=== PATIENT | female | born 1950 | race Caucasian/White ===

== ENCOUNTER 2016-09-24 10:27 | Inpatient (IN) ==
--- NOTE | 2016-09-24 10:35 | Emergency Department Note ---
Disposition Clinical Impression: DM type 2 (diabetes mellitus, type 2), Pneumonia, Pleural effusion, Hypoxemia, Obesity, Anemia, Uncontrolled diabetes mellitus, Sepsis, History of treatment for malignancy Disposition: Admitted As Inpatient Referrals: Mini Engle CNP [Primary Care Provider] - Forms: ED Satisfaction Letter General Adult HPI - General Chief complaint: ED Chest Pain Stated complaint: chest pain, maximo Time Seen by Provider: 09/24/16 10:30 - History of Present Illness HPI Narrative: 66-year-old female reports in the emergency department complaining of chest pain and shortness of breath. She has recently been diagnosed with a pneumonia took her last antibiotics on Monday. The patient was in the hospital until last Monday. The patient has no home oxygen requirement. She denies any coughing of blood or leg swelling or pain. The patient denies any vomiting or diarrhea but describes some abdominal pain when coughing. There is no history of new back pain and no headache neck stiffness rash or fever. No trouble moving the arms or legs independently no falls. There is no history of dysarthria or confusion. The patient is not anticoagulated currently. The patient is diabetic. Patient has a history of renal malignancy. She had surgery last year. No history of PE or DVT previously. She comes in from home. Onset (ago): day(s) - Related Data Home Medications Medication Instructions Recorded Confirmed RX: Atorvastatin Calcium [Lipitor] 40 mg PO 05/30/16 RX: Esomeprazole Magnesium [Nexium] 40 mg PO 05/30/16 RX: Insulin Glargine,Hum.rec.anlog 100 unit SQ 05/30/16 [Lantus Solostar] RX: Insulin LISPRO [Humalog 100 unit SQ 05/30/16 Kwikpen U-100] RX: Sertraline HCl [Zoloft] 100 mg PO 05/30/16 Previous Rx's Medication Instructions Recorded RX: Meclizine [Antivert] 12.5 mg PO TID PRN #20 tablet 05/30/16 RX: Ascorbic Acid [Vitamin C] 500 mg PO DAILY #30 tablet 09/18/16 RX: Digoxin [Lanoxin] 0.25 mg PO DAILY #30 tablet 09/18/16 RX: Ferrous Sulfate 325 mg PO DAILY #30 tablet 09/18/16 RX: Levofloxacin [Levaquin] 500 mg PO DAILY #3 tablet 09/18/16 RX: Lisinopril [Zestril] 10 mg PO DAILY #0 09/18/16 RX: Metoprolol XL (24 HR) Succ 25 mg PO DAILY #30 tab.er.24h 09/18/16 [Toprol Xl] RX: Rivaroxaban [Xarelto] 20 mg PO 1700 #30 tablet 09/18/16 RX: Verapamil ER (24 HR) [Calan SR] 180 mg PO DAILY #30 tablet.er 09/18/16 Allergies Allergy/AdvReac Type Severity Reaction Status Date / Time Penicillins Allergy Rash Verified 05/30/16 19:13 tape Allergy Rash Uncoded 09/24/16 11:28 All systems ED: reviewed and negative except as stated. Past Medical History - Past Medical History Medical history: Reports: diabetes Psychiatric history: Reports: no psych history - Social History Smoking Status: Never smoker Smokeless Tobacco Status: No Alcohol use: Reports: none Drug use: Reports: none Physical Exam - General Limitations: no limitations General appearance: alert, in no apparent distress - Head Head exam: atraumatic, normocephalic, normal inspection - Eye Eye exam: Present: normal appearance, PERRL, EOMI. Absent: scleral icterus, conjunctival injection - ENT ENT exam: normal exam, normal oropharynx, mucous membranes moist, TM's normal bilaterally, normal external ear exam - Neck Neck exam: Present: normal inspection, full ROM, trachea midline - Chest Chest inspection: Present: symmetric chest wall rise. Absent: tenderness - Respiratory Respiratory exam: Present: prolonged expiratory phase. Absent: respiratory distress, stridor, accessory muscle use - Cardiovascular Cardiovascular exam: Present: regular rate, normal rhythm, normal heart sounds - Abdominal Exam Abdominal exam: Present: soft, Non-Tender, normal bowel sounds. Absent: tenderness, distention, guarding, rebound, rigidity - Extremities Exam Extremities exam: Present: normal inspection, full ROM, normal capillary refill. Absent: tenderness, pedal edema, joint swelling, calf tenderness - Expanded Lower Extremity Exam Lower leg exam: Absent: Homans' sign Neurovascular/Tendon exam: Absent: motor deficit, sensory deficit, tendon deficit, extremity cold to touch - Back Exam Back exam: Present: normal inspection, full ROM. Absent: tenderness, CVA tenderness (R), CVA tenderness (L), vertebral tenderness - Neurological Exam Neurological exam: Present: alert, oriented X3, CN II-XII intact. Absent: motor sensory deficit - Psychiatric Psychiatric exam: Present: normal affect, normal mood - Skin Skin exam: Present: warm, dry, intact, normal color. Absent: rash, cyanosis, diaphoresis, erythema, pallor, mottled Course Vital Signs Temperature 98.8 F 09/24/16 10:33 Pulse Rate 62 09/24/16 10:33 Respiratory Rate 22 09/24/16 10:33 Blood Pressure 143/71 09/24/16 10:33 O2 Sat by Pulse Oximetry 92 L 09/24/16 10:33 Temperature 98.8 F 09/24/16 10:33 Pulse Rate 59 09/24/16 13:00 Respiratory Rate 20 09/24/16 13:00 Blood Pressure 121/48 09/24/16 13:00 O2 Sat by Pulse Oximetry 91 L 09/24/16 13:00 Oxygen Delivery Oxygen Delivery Nasal Cannula Medical Decision Making - MDM Narrative Medical decision making narrative: Patient appears to have been treated outpatient, she has been persistently hypoxemic in the ED with saturations at about 90% on 3 L. She does not usually require oxygen. She was given a dose of antibiotics IV fluids as well as Solu- Medrol and breathing medication. Her CTA does not reveal a pulmonary embolus, she does have a history of kidney malignancy, a pleural effusion appears to be increasing. She appears to have failed outpatient therapy. Based on the patient's persistent hypoxemia, apparent worsening pleural effusion, clinical dyspnea, and tachypnea, I think it would be best to admit the patient to the hospital for further evaluation. Thoracentesis for pleural fluid evaluation could be considered. The patient was initially tachycardic and tachypneic and has a source for infection, her lactic acid is negative. IV fluids were given. Sepsis criteria are met. The patient is currently stable. I have discussed the case with the hospitalist on-call. - Lab Data Lab results reviewed: Yes I reviewed the patient's lab results. Result diagrams: 09/24/16 10:40 09/24/16 10:40 Lab Results 09/24/16 09/24/16 09/24/16 Range/Units 10:40 10:40 10:40 WBC (4.3-11.1) K/mcL RBC (3.82-4.97) M/mcL Hgb (11.5-15.4) g/dL Hct (35.3-44.9) % MCV (83.0-100.0) fL MCH (28.0-33.3) pg MCHC (31.6-35.5) g/dL RDW (11.5-14.5) % Plt Count (140-400) K/mcL MPV (9.4-12.4) fL Immature Gran % (0-4) % Seg Neutrophils % % Lymphocytes % % Monocytes % % Eosinophils % % Basophils % % Neutrophils # (1.6-8.9) K/mcL Lymphocytes # (0.6-4.6) K/mcL Monocytes # (0.0-1.3) K/mcL Eosinophils # (0.0-0.6) K/mcL Basophils # (0.0-0.2) K/mcL PT 15.5 H (9.4-12.1) Seconds INR 1.4 APTT 48.2 H (26.0-36.0) Seconds Sodium 138 (136-145) mEq/L Potassium 4.4 (3.5-4.5) mEq/L Chloride 101 (98-109) mEq/L Carbon Dioxide 26 (19-29) mEq/L BUN 23 H (7-20) mg/dL Creatinine 0.84 (0.57-1.11) mg/dL Est GFR ( Amer) > 60 (> 60) Est GFR (Non-Af Amer) > 60 (> 60) BUN/Creatinine Ratio 27 H (6-26) Glucose 420 H (70-99) mg/dL Calculated Osmolality 308 H (280-300) Lactic Acid (0.5-2.2) mmol/L Calcium 10.5 (8.6-10.8) mg/dL Total Bilirubin 0.4 (0.2-1.2) mg/dL Direct Bilirubin 0.2 (0.0-0.5) mg/dL Indirect Bilirubin 0.2 (0.0-1.2) mg/dL AST 15 (5-34) Units/L ALT 29 (0-55) Units/L Alkaline Phosphatase 247 H (38-126) Units/L Troponin I (0-0.03) ng/mL C-Reactive Protein 15 H (Less than 5) mg/L B-Natriuretic Peptide 132 H (0-100) pg/mL Serum Total Protein 6.5 (6.0-8.3) g/dL Albumin 3.0 L (3.5-5.0) g/dL Globulin 3.5 (2.4-3.5) g/dL Albumin/Globulin Ratio 0.9 L (1.1-2.2) Lipase 30 (8-78) Units/L TSH 3.217 (0.350-4.840) mcIU/mL Digoxin 1.5 (0.8-2.0) ng/mL 09/24/16 09/24/16 09/24/16 Range/Units 10:40 10:40 10:57 WBC 8.1 (4.3-11.1) K/mcL RBC 4.05 (3.82-4.97) M/mcL Hgb 10.9 L (11.5-15.4) g/dL Hct 33.3 L (35.3-44.9) % MCV 82.2 L (83.0-100.0) fL MCH 26.9 L (28.0-33.3) pg MCHC 32.7 (31.6-35.5) g/dL RDW 13.2 (11.5-14.5) % Plt Count 209 (140-400) K/mcL MPV 11.2 (9.4-12.4) fL Immature Gran % 1.4 (0-4) % Seg Neutrophils % 79.1 % Lymphocytes % 12.1 % Monocytes % 5.7 % Eosinophils % 1.1 % Basophils % 0.6 % Neutrophils # 6.4 (1.6-8.9) K/mcL Lymphocytes # 1.0 (0.6-4.6) K/mcL Monocytes # 0.5 (0.0-1.3) K/mcL Eosinophils # 0.1 (0.0-0.6) K/mcL Basophils # 0.1 (0.0-0.2) K/mcL PT (9.4-12.1) Seconds INR APTT (26.0-36.0) Seconds Sodium (136-145) mEq/L Potassium (3.5-4.5) mEq/L Chloride (98-109) mEq/L Carbon Dioxide (19-29) mEq/L BUN (7-20) mg/dL Creatinine (0.57-1.11) mg/dL Est GFR ( Amer) (> 60) Est GFR (Non-Af Amer) (> 60) BUN/Creatinine Ratio (6-26) Glucose (70-99) mg/dL Calculated Osmolality (280-300) Lactic Acid 1.5 (0.5-2.2) mmol/L Calcium (8.6-10.8) mg/dL Total Bilirubin (0.2-1.2) mg/dL Direct Bilirubin (0.0-0.5) mg/dL Indirect Bilirubin (0.0-1.2) mg/dL AST (5-34) Units/L ALT (0-55) Units/L Alkaline Phosphatase (38-126) Units/L Troponin I 0.00 (0-0.03) ng/mL C-Reactive Protein (Less than 5) mg/L B-Natriuretic Peptide (0-100) pg/mL Serum Total Protein (6.0-8.3) g/dL Albumin (3.5-5.0) g/dL Globulin (2.4-3.5) g/dL Albumin/Globulin Ratio (1.1-2.2) Lipase (8-78) Units/L TSH (0.350-4.840) mcIU/mL Digoxin (0.8-2.0) ng/mL - Radiology Data Radiology results reviewed: Yes I reviewed the patient's radiology results.
[2016-09-24 10:48] LABS: Basophils # 0.1 K/mcL (0.0-0.2); Basophils % 0.6 %; Eosinophils # 0.1 K/mcL (0.0-0.6); Eosinophils % 1.1 %; Hematocrit 33.3 % (35.3-44.9); Hemoglobin 10.9 g/dL (11.5-15.4); Immature Granulocytes % 1.4 % (0-4); Lymphocytes % 12.1 %; Mean Corpuscular HGB Conc 32.7 g/dL (31.6-35.5); Mean Corpuscular Hemoglobin 26.9 pg (28.0-33.3); Mean Corpuscular Volume 82.2 fL (83.0-100.0); Mean Platelet Volume 11.2 fL (9.4-12.4); Monocytes # 0.5 K/mcL (0.0-1.3); Monocytes % 5.7 %; Neutrophils # 6.4 K/mcL (1.6-8.9); Platelet Count 209 K/mcL (140-400); Red Blood Count 4.05 M/mcL (3.82-4.97); Red Cell Distribution Width 13.2 % (11.5-14.5); Segmented Neutrophils % 79.1 %
[2016-09-24 10:54] LABS: INR 1.4; Prothrombin Time 15.5 Seconds (9.4-12.1)
[2016-09-24 10:56] LABS: Activated Partial Thrombo Time 48.2 Seconds (26.0-36.0)
[2016-09-24 11:06] LABS: Alanine Aminotransferase 29 Units/L (0-55); Albumin/Globulin Ratio 0.9 (1.1-2.2); Alkaline Phosphatase 247 Units/L (38-126); Aspartate Amino Transferase 15 Units/L (5-34); BUN/Creatinine Ratio 27 (6-26); Bilirubin,Direct 0.2 mg/dL (0.0-0.5); Bilirubin,Indirect 0.2 mg/dL (0.0-1.2); Bilirubin,Total 0.4 mg/dL (0.2-1.2); Blood Urea Nitrogen 23 mg/dL (7-20); Calcium 10.5 mg/dL (8.6-10.8); Carbon Dioxide 26 mEq/L (19-29); Chloride 101 mEq/L (98-109); Globulin 3.5 g/dL (2.4-3.5); Glucose 420 mg/dL (70-99); Lipase 30 Units/L (8-78); Osmolality,Calculated 308 (280-300); Potassium 4.4 mEq/L (3.5-4.5); Sodium 138 mEq/L (136-145); Total Protein 6.5 g/dL (6.0-8.3); eGFR For African Americans > 60 (> 60); eGFR For Non-African Americans > 60 (> 60)
[2016-09-24 11:26] LABS: Digoxin 1.5 ng/mL (0.8-2.0); Thyroid Stimulating Hormone 3.217 mcIU/mL (0.350-4.840)
[2016-09-24] MEDS ORDERED: Ipratropium/Albuterol Neb 3 ML IH ONE (11:54)
[2016-09-24] MEDS ORDERED: methylPREDNISolone 125 MG/2 ML VIAL IVP ONE (11:54)
[2016-09-24] MEDS ORDERED: 0.9 % Sodium Chloride 1,000 ML IVC ONE ×2 (11:55→13:33)
[2016-09-24] MEDS ORDERED: Levofloxacin 750 MG/150 ML 750 MG/150 ML BAG IVPB ONE (11:56)
[2016-09-24 13:01] LABS: C-Reactive Protein 15 mg/L (Less than 5)
[2016-09-24] MEDS ORDERED: Naloxone 0.4 MG/ML INJ IVP PRN (14:42)
[2016-09-24] MEDS ORDERED: Ondansetron ODT 4 MG TAB.RAPDIS SL PRN (14:42)
[2016-09-24] MEDS ORDERED: Vancomycin 1,750 MG in D5% in Water 250 ML IVPB SCH (15:00)
--- NOTE | 2016-09-24 15:17 | Internal Med History&Physical ---
<Lucie Maurice M - Last Filed: 09/24/16 23:20> Date of Encounter: 09/24/16 Time of Encounter: 15:12 Assessment and Plan (1) Pneumonia Current visit: Yes Status: Acute Patient was admitted to [facility] last week and treated for right lower lobe pneumonia discharged on 500 mg of by mouth Levaquin which she completed on Monday. Symptoms have worsened since her discharge last Monday, with increasing shortness of breath, fatigue, malaise, productive cough. She is now requiring 3 L of nasal cannula to maintain oxygen saturation greater than 90%. She was to Neck and dyspneic on assessment in the ED. Chest x-ray showed improvement in right basilar opacity. CTA was negative for PE however showed increasing right pleural effusion and persistent right lower lobe opacification. Consistent with unresolved pneumonia. Lactic acid was 1.5. Blood cultures were drawn She was given IV fluid boluses She was initiated on IV piggyback Levaquin We will add broad-spectrum Vancomycin and aztreonam IV fluids 0.9 normal saline at 100 mL per hour DuoNeb treatments 4 times a day Titrate oxygen to maintain oxygen saturation greater than 92% Pulmonology was consultation for increasing right pleural effusion, I spoke with Dr. Heaton they will see the patient tomorrow Qualifiers: Pneumonia type: due to unspecified organism Laterality: right Lung location: lower lobe of lung Qualified Code(s): J18.1 - Lobar pneumonia, unspecified organism (2) DM type 2 (diabetes mellitus, type 2) Current visit: Yes Status: Chronic Hgb A1c of 13.3 on 09/16/16, indicating she is not well controlled. diabetic diet check blood sugars ACHS Continue home basal dose of insulin 100u HS levemir Continue home Nutritional dose of lispro 12u TID WM low dose sliding scale correction dose ACHS hypoglycemic protocol. Qualifiers: Diabetes mellitus complication status: with neurologic complications Diabetes mellitus complication detail: with polyneuropathy Diabetes mellitus long term care phlebotomist insulin use: with long term care phlebotomist use Qualified Code(s): E11.42 - Type 2 diabetes mellitus with diabetic polyneuropathy; Z79.4 - longterm (current) use of insulin (3) Atrial fibrillation Current visit: No Status: Acute During recent hospitalization at [facility] patient was newly diagnosed with paroxysmal atrial fibrillation. She was started on Xarelto for anticoagulation , and was started on digoxin, metoprolol and verapamil for rate control. She has a sinus rhythm now, and her heart rate is low 50s-60s. She was supposed to get an echocardiogram in follow up. Will get digoxin level. continuous quality assurance monitor final. echocardiogram Continue home dose of digoxin, metoprolol, verapamil. After speaking with Pulmonology, will hold Xarelto for possible procedure Qualifiers: Atrial fibrillation type: paroxysmal Qualified Code(s): I48.0 - Paroxysmal atrial fibrillation (4) Chest pain Current visit: Yes Status: Acute Patient reports chest pain, worse with coughing and activity. CXR showed improvement in right basilar opacity. CTA was negative for PE , but showed increasing right pleural effusion and persistent right lower lobe opacification. Initial troponin negative at 0.0. EKG showed sinus rhythm without ST changes. continuous quality assurance monitor final serial troponins for trend. Qualifiers: Chest pain type: other chest pain Qualified Code(s): R07.89 - Other chest pain; R07.8 - Other chest pain (5) Acute respiratory failure Current visit: Yes Status: Acute Patient does not use oxygen at home. She is reporting increased shortness of breath, and productive cough over the last week. In the ED, she was requiring 3L NC in order to maintain oxygen saturation above 90%. We will treat her pneumonia with broad-spectrum antibiotics DuoNeb treatments 4 times a day titrate oxygen to maintain saturation greater than 92% Pulmonology consultation for increasing right pleural effusion seen on CTA, I spoke with Dr. Heaton he will see patient tomorrow Qualifiers: Respiratory failure complication: hypoxia Qualified Code(s): J96.01 - Acute respiratory failure with hypoxia (6) Pleural effusion Current visit: Yes Status: Acute Patient with increased oxygen requirements, shortness of breath. CTA shows increasing right pleural effusion and persistent right lower lobe opacification. Concern for infected pleural effusion. Pulmonology consultation , I spoke with Dr. Heaton, they will see patient tomorrow. Will hold Xarelto for possible thoracentesis. 20mg IVP lasix daily. (7) DVT prophylaxis Current visit: Yes Status: Acute Ambulate with assistance as tolerated anti-embolic stockings Continue home dose of xarelto Internal Medicine - H&P: HPI Chief complaint: shortness of breath Admitted From: Emergency Dept Plans for Post Hospital Care: Home History of present illness: Ms. Dow is a 66 year old female diabetes, hyperlipidemia, GERD, asthma, recent diagnosis of atrial fibrillation, and recent admission for pneumonia at [facility] presents with increasing as of breath, chest pain, and productive cough. She was admitted last week at [facility] and diagnosed with pneumonia and new onset A. fib. She was treated with Levaquin and discharged on Monday on 500 mg by mouth Levaquin daily and completed the course on Monday. She reports since her discharge, she reports she has felt fatigue, malaise, and felt like her shortness of breath was getting worse. Her cough is productive of thick clear sputum and she also endorses chest pain worse with her cough she has lack of appetite, and some nausea. She denies any palpitations, headaches, fever, chills, body aches she denies any vomiting, abdominal pain, or diarrhea. Dilation in the ED was significant for patient needing 3 L nasal cannula to maintain oxygen saturation 90%, she does not use oxygen at home chest x-ray showed improvement in right basilar opacity. However CTA was negative for PE showed increasing right pleural effusion and persistent right lower lobe opacification upon and was negative at 0.0 white blood cell count was normal at 8.1. CRP was elevated at 15, BNP was mildly elevated at 132. Hyperglycemic with glucose of 420. Exam, patient is alert and oriented in no acute distress. Regular rate and rhythm, lungs have fine crackles in the right base. Past Med Surg Social Fam HX - Past Medical History Medical history: asthma, atrial fibrillation, cancer (kidney cancer s/p kidney resection 2015), diabetes, GERD, hyperlipidemia, hypertension Psychiatric history: no psych history - Past Surgical History Surgical History: appendectomy, cancer surgery (Kidney resection), cholecystectomy, hysterectomy, knee replacement - Social History Smoking Status: Former smoker (Heavy former smoker: 4-5PPD x 30+ years) Smokeless Tobacco Status: No Alcohol use: none Drug use: none - Family History Mother Adopted: No Family Member Ethnicity: Non- Living Status: Age at : 55 Hx Family Cardiac Disorders: No Hx Family Respiratory Disorders: Yes (emphysema) Hx Family Cancer: No Hx Family GI Disorders: No Hx Family Endocrine Disorder: No Hx Family Neuromuscular Disorders: No Hx Family Neurologic Disorders: Yes (depression) Hx Family HEENT Disorders: No Hx Family Autoimmune Disorders: No Internal Medicine - H&P: Meds Atorvastatin Calcium [Lipitor] 40 mg PO DAILY 05/30/16 [History] Esomeprazole Magnesium [Nexium] 40 mg PO DAILY 05/30/16 [History] Insulin Glargine,Hum.rec.anlog [Lantus Solostar] 100 unit SQ HS 05/30/16 [ History] Insulin LISPRO [Humalog Kwikpen U-100] 12 unit SQ TID 05/30/16 [History] Meclizine [Antivert] 12.5 mg PO TID PRN #20 tablet 05/30/16 [Rx] Sertraline HCl [Zoloft] 100 mg PO DAILY 05/30/16 [History] Ascorbic Acid [Vitamin C] 500 mg PO DAILY #30 tablet 09/18/16 [Rx] Digoxin [Lanoxin] 0.25 mg PO DAILY #30 tablet 09/18/16 [Rx] Ferrous Sulfate 325 mg PO DAILY #30 tablet 09/18/16 [Rx] Levofloxacin [Levaquin] 500 mg PO DAILY #3 tablet 09/18/16 [Rx] Lisinopril [Zestril] 10 mg PO DAILY #0 09/18/16 [Rx] Metoprolol XL (24 HR) Succ [Toprol Xl] 25 mg PO DAILY #30 tab.er.24h 09/18/16 [ Rx] Verapamil ER (24 HR) [Calan SR] 180 mg PO DAILY #30 tablet.er 09/18/16 [Rx] Aspirin [Lo-Dose Aspirin EC] 81 mg PO DAILY 09/24/16 [History] Rivaroxaban [Xarelto] 20 mg PO QPM 09/24/16 [History] Allergies Penicillins Allergy (Verified 09/24/16 15:42) Hives adhesive tape Adverse Reaction (Verified 09/24/16 15:42) See Comments TAPE CAUSES BRUISING- All Systems PM: A 10-system review of systems was performed and is negative for pertinent findings except as documented above in the HPI. - Constitutional Constitutional: fatigue, malaise, no chills, no fever(s), no night sweats - EENT Eyes: no change in vision, no discharge, no pain, no photophobia Ears: no ear discharge, no ear pain, no tinnitus Nose, mouth and throat: no dysphagia, no nasal discharge, no neck pain, no sore throat - Cardiovascular Cardiovascular ROS IM: chest pain, dyspnea, dyspnea on exertion, no diaphoresis , no lightheadedness, no palpitations, no syncope - Respiratory Respiratory: cough, dyspnea, dyspnea on exertion, excessive phlegm production, pain with cough, no hemoptysis, no wheezing - Gastrointestinal Gastrointestinal: no abdominal pain, no diarrhea, no hematemesis, no hematochezia, no melena, no nausea, no vomiting - Genitourinary Genitourinary: no change in urinary stream, no dysuria, no flank pain, no hematuria - Musculoskeletal Musculoskeletal ROS IM: no numbness, no tingling - Integumentary Integumentary IM: no rash, no unusual bruising - Neurological Neurological ROS: no confusion, no convulsions, no focal weakness, no numbness, no tingling, no tremor(s) - Hematologic/Lymphatic Hematologic/Lymphatic: no easy bruising - Constitutional Vitals: Temp Pulse Resp BP Pulse Ox 98.8 F 57 20 137/70 90 L 09/24/16 10:33 09/24/16 13:30 09/24/16 13:30 09/24/16 13:30 09/24/16 13:30 General appearance: Present: A&O X 3, morbidly obese, no acute distress - Head Head exam: Present: atraumatic, normocephalic - Eye Eye exam: Present: PERRL, conjuntiva pink, sclera anicteric Pupils: Present: PERRL - Neck Neck exam general surgery: Present: supple, trachea midline. Absent: lymphadenopathy - Respiratory Respiratory exam: Present: rales (right base). Absent: accessory muscle use, rhonchi, wheezes - Cardiovascular Cardiovascular exam: Present: RRR, +S1, +S2. Absent: diastolic murmur, gallop, rubs, systolic murmur - GI/Abdominal GI/Abdominal exam: Present: normal bowel sounds, soft, no peritoneal signs. Absent: distended, tenderness - Extremities Exam Extremities exam: Present: warm, radial pulses palpable and symetrical. Absent : calf tenderness, cyanotic, pedal edema - Neurological Exam Neurological exam: Present: CN II-XII intact, oriented X3, no focal deficits. Absent: facial droop, speech deficit - Skin Skin exam: Present: dry, intact Internal Med - H&P Results - Labs CBC & Chem 7: 09/24/16 10:40 09/24/16 10:40 Labs: Short CBC 09/24/16 Range/Units 10:40 WBC 8.1 (4.3-11.1) K/mcL Hgb 10.9 L (11.5-15.4) g/dL Hct 33.3 L (35.3-44.9) % Plt Count 209 (140-400) K/mcL Neutrophils # 6.4 (1.6-8.9) K/mcL BMP 09/24/16 10:40 Sodium 138 Potassium 4.4 Chloride 101 Carbon Dioxide 26 BUN 23 H Creatinine 0.84 Glucose 420 H Calcium 10.5 Cardiac Enzymes 09/24/16 Range/Units 10:40 Troponin I 0.00 (0-0.03) ng/mL Liver Function 09/24/16 Range/Units 10:40 Total Bilirubin 0.4 (0.2-1.2) mg/dL Direct Bilirubin 0.2 (0.0-0.5) mg/dL AST 15 (5-34) Units/L ALT 29 (0-55) Units/L Alkaline Phosphatase 247 H (38-126) Units/L Albumin 3.0 L (3.5-5.0) g/dL - Impressions ITS Impressions Chest X-Ray 09/24/16 10:37 IMPRESSION: Interval improvement in right basilar opacity since the previous exam. D/ / Bette Zapien MD / Bette Zapien MD Interpreting Provider: Bette Zapien MD Chest CTA 09/24/16 12:05 IMPRESSION: 1. No evidence of pulmonary embolic disease. 2. Persistent right lower lobe opacification consistent with a pneumonia. Interval increase in right pleural effusion. No new areas of involvement. 3. Stable nodule in the lower cervical region on the left, possibly clifton. D/ / 09/24/2016 13:05:03 Delroy Snell MD / earnold Interpreting Provider: Delroy Snell MD <Gregory Daniels - Last Filed: 09/25/16 07:39> Date of Encounter: 09/25/16 Internal Medicine - H&P: HPI History of present illness: Ms. Dow is a 66 year old female All Systems PM: A 10-system review of systems was performed and is negative for pertinent findings except as documented above in the HPI. - Constitutional Vitals: Temp Pulse Resp BP Pulse Ox 98.0 F 66 16 134/66 94 L 09/25/16 06:16 09/25/16 06:16 09/25/16 06:16 09/25/16 06:16 09/25/16 06:16 Internal Med - H&P Results - Labs CBC & Chem 7: 09/25/16 04:51 09/25/16 04:51 Labs: Short CBC 09/25/16 Range/Units 04:51 WBC 8.3 (4.3-11.1) K/mcL Hgb 11.6 (11.5-15.4) g/dL Hct 36.9 (35.3-44.9) % Plt Count 320 D (140-400) K/mcL Neutrophils # 7.3 (1.6-8.9) K/mcL BMP 09/25/16 04:51 Sodium 137 Potassium 4.2 Chloride 100 Carbon Dioxide 23 BUN 24 H Creatinine 1.21 H Glucose 468 H Calcium 9.5 Cardiac Enzymes 09/24/16 09/24/16 Range/Units 16:33 22:17 Troponin I 0.00 0.00 (0-0.03) ng/mL - Attending Attestation I examined this patient and my medical decision-making was reviewed with the Advanced Practice Provider. I agree with the documented findings, disposition and treatment plan as described except to the extent set forth below. Will treatment the patient with antibiotics for pneumonia, hold anticoagulation in anticipation of possible diagnostic thoracentesis which would be indicated to diagnose parapneumonic effusion or empyema. Continue with oxygen by nasal cannula for acute hypoxic respiratory failure secondary to pneumonia and pleural effusion. For DVT prophylaxis we will use SCDs while holding the patient's Xarelto.
[2016-09-24] MEDS: Ipratropium/Albuterol Neb 3 ML IH SCH ×2 (15:38→22:19)
[2016-09-24] MEDS ORDERED: Dextrose Gel 15 GM PO PRN ×2 (15:38)
[2016-09-24] MEDS ORDERED: *HR* Dextrose 50 % in Water (Syg) 50 ML SYRINGE IVP PRN (15:38)
[2016-09-24] MEDS ORDERED: D5% in Water 1,000 ML IV PRN (15:38)
[2016-09-24] MEDS ORDERED: Vancomycin 1,750 MG in D5% in Water 500 ML IVPB ONE (16:00)
[2016-09-24] MEDS: Aztreonam 1,000 MG in D5% in Water (Mini-Bag+) 100 ML IVPB SCH (16:55)
[2016-09-24] MEDS: 0.9 % Sodium Chloride 1,000 ML IVC SCH (16:58)
[2016-09-24] MEDS: Insulin LISPRO 300 UNITS/3 ML VIAL SQ SCH ×3 (17:01→22:28)
[2016-09-24] MEDS ORDERED: *HR* Rivaroxaban 10 MG TABLET PO SCH (18:00)
[2016-09-24] MEDS: Insulin DETEMIR 100 UNIT/ML X5UNITS SQ SCH (20:43)
[2016-09-24] MEDS: Furosemide 20 MG/2 ML VIAL IVP SCH (20:44)
[2016-09-25] MEDS: Aztreonam 1,000 MG in D5% in Water (Mini-Bag+) 100 ML IVPB SCH ×4 (00:02→23:49)
[2016-09-25] MEDS: 0.9 % Sodium Chloride 1,000 ML IVC SCH (02:41)
[2016-09-25] MEDS: Insulin LISPRO 300 UNITS/3 ML VIAL SQ SCH ×8 (03:27→22:12)
[2016-09-25] MEDS: Ipratropium/Albuterol Neb 3 ML IH SCH ×4 (04:14→23:08)
[2016-09-25 05:19] LABS: Basophils % 0.2 %; Hematocrit 36.9 % (35.3-44.9); Hemoglobin 11.6 g/dL (11.5-15.4); Immature Granulocytes % 3.9 % (0-4); Lymphocytes # 0.5 K/mcL (0.6-4.6); Lymphocytes % 5.8 %; Mean Corpuscular HGB Conc 31.4 g/dL (31.6-35.5); Mean Corpuscular Hemoglobin 26.2 pg (28.0-33.3); Mean Corpuscular Volume 83.3 fL (83.0-100.0); Mean Platelet Volume 10.4 fL (9.4-12.4); Monocytes # 0.1 K/mcL (0.0-1.3); Monocytes % 1.6 %; Neutrophils # 7.3 K/mcL (1.6-8.9); Platelet Count 320 K/mcL (140-400); Red Blood Count 4.43 M/mcL (3.82-4.97); Segmented Neutrophils % 88.5 %
[2016-09-25 05:44] LABS: Calcium 9.5 mg/dL (8.6-10.8); Potassium 4.2 mEq/L (3.5-4.5)
[2016-09-25] MEDS: Aspirin Enteric Coated 81 MG Tablet PO SCH (08:15)
[2016-09-25] MEDS: Verapamil ER (24 HR) 180 MG TABLET.ER PO SCH (08:15)
[2016-09-25] MEDS: Ascorbic Acid 500 MG TABLET PO SCH (08:15)
[2016-09-25] MEDS: Metoprolol XL (24 HR) Succ 25 MG TAB.ER.24H PO SCH (08:16)
[2016-09-25] MEDS: Furosemide 20 MG/2 ML VIAL IVP SCH (08:17)
[2016-09-25] MEDS: *HR* Digoxin 0.25 MG TABLET PO SCH (08:17)
[2016-09-25] MEDS ORDERED: Vancomycin 1,750 MG in D5% in Water 500 ML IVPB ONE (09:00)
--- NOTE | 2016-09-25 10:33 | Event Note ---
Date of Encounter: 09/25/16 Time of Encounter: 08:00 I noticed a significant rise in creatinine this morning and so I will stop the lisinopril. Avoid nephrotoxins. F/u BMP in am.
--- NOTE | 2016-09-25 13:00 | ECHO - Doppler Report ---
Echocardiogram Name: Katelyn Dow Date of Study: 09/25/2016 Date: 1950 Ht: 61.0 in Medical Record#: [id number] Age: 66 Wt: 246.0 lb Gender: Female BSA: 2.06 Order #: [id number] Location: [facility] Room #: 2NE20 Reading Physician: Bella Bauer DO Sales Service Assistant: Brii Goetz PRINCESS Ordering Physician: Nadeem Feliz MD Primary Physician: Mini Engle CNP Indications: Atrial fibrillation Impressions: LVEF 55%. Normal left ventricular size and systolic function. There is evidence of moderate diastolic dysfunction of the left ventricle. Mild to moderately dilated RV with normal function. No significant valvular dysfunction. No pulmonary hypertension. Left Ventricular Wall Motion: Rest Echo Findings All wall segments showed normal motion. Findings: Study Quality * Technically sub-optimal due to body habitus. ECG Findings * Normal sinus rhythm. Aortic Valve * No aortic regurgitation. * Aortic valve not well visualized. * No aortic stenosis. Mitral Valve * Normal mitral valve structure. * No mitral stenosis. * Mild mitral annular calcification * Trace mitral regurgitation. Tricuspid Valve * Tricuspid valve not well visualized. * Trace tricuspid regurgitation. * Estimated RA pressure is 3 mmHg. * Estimated RVSP is 25 mmHg. * No pulmonary hypertension. Pulmonic Valve * Pulmonic valve is not well visualized. * No pulmonic stenosis. * No pulmonic regurgitation. Pulmonary Artery * Pulmonary artery not well visualized. Right Atrium * Normal right atrial size. Left Ventricle * Moderate left ventricular diastolic dysfunction. * LVEF 55%. * Normal LV chamber size, wall thickness and function. Left Atrium * Mildly dilated left atrium. Interatrial Septum * No evidence of PFO by color Doppler. Right Ventricle * Mild to moderately dilated RV with normal function. IVC * The IVC is not dilated. Pericardium * There is no pericardial effusion present. Aorta * Normally sized aortic root. History Diabetes Hypercholesteremia Family History of CAD Measurements: BP: 134/ 66 2D Normal Values RVIDd: 3.10 cm <2.7 cm IVSd: .90 cm 0.6 - 1.0 cm LVIDd: 4.30 cm 3.7 - 5.6 cm LVPWd: 1.10 cm 0.6 - 1.1 cm LVIDs: 2.90 cm 1.5 - 3.6 cm AO: 2.70 cm < 4.0 cm LA: 4.20 cm 2.0 - 4.0cm %FS: 32.60 cm >25 % LVOT Diam: 2.00 cm LA volume: 71 Mitral Valve Peak E:.81 m/sec Peak A:.85 m/sec E/A Ratio:1 Peak E' Lat Marvin:7.21 cm/s Peak E' Med Marvin:12.7 cm/s E/E' Lat Ratio:11.3 E/E' Med Ratio:6.4 Tricuspid Valve TV Regurg Peak Grad: 22.00mmHg TV Regurg Peak Marvin: 2.36m/sec Updated by Bella Bauer on 09/25/2016 12:55:08 PM electronically signed on 09/25/2016 12:56:08 PM with status of Final Wall Motion [place]: 1=Normal, 2=Hypokinesis, 3=Akinesis, 4=Dyskinesis, 5=Aneurysmal, 6=Hyperkinetic, X=Not Visualized (Blank)=Missing
--- NOTE | 2016-09-25 13:18 | Internal Med Progress Note ---
Date of Encounter: 09/25/16 Time of Encounter: 13:14 - Assessment and plan (1) Pneumonia Current Visit: Yes Status: Acute Assessment and plan: Pneumonia: -Admitted for pneumonia, healthcare associated pneumonia. -Presently on vancomycin and aztreonam. -Noted that she she was treated recently in the hospital. -Denies fever, cough or nausea and vomiting. Plan -We will continue antibiotics for now. -I feel this worsening shortness of breath and generalized fatigue is a result of underlying coronary artery disease. -I will get stress test done. -She also has a previous history of malignancy. I will keep that in mind in terms of evaluation Qualifiers: Pneumonia type: due to unspecified organism Laterality: right Lung location: lower lobe of lung Qualified Code(s): J18.1 - Lobar pneumonia, unspecified organism (2) Obesity Current Visit: Yes Status: Acute Assessment and plan: She may get benefit from bariatric surgery as outpatient Qualifiers: Obesity type: unspecified obesity type Obesity severity: unspecified obesity severity Qualified Code(s): E66.9 - Obesity, unspecified (3) Pleural effusion Current Visit: Yes Status: Acute Assessment and plan: Pleural effusion is likely secondary to underlying coronary artery disease / ischemic heart disease. Echocardiogram: Moderate diastolic dysfunction. (4) DVT prophylaxis Current Visit: Yes Status: Acute Assessment and plan: On Xarelto. Medical decision making: This patient is a [id number] risk of worsening infection in spite of being on appropriate antibiotics - Subjective Interval history: Seen and examined. Chart reviewed. Patient is complaining of worsening shortness of breath for last 5-6 months. She has progressively worsening effort tolerance as well as she feels easily fatigued. - Constitutional Vitals: Temp Pulse Resp BP Pulse Ox 98.0 F 65 16 125/49 95 09/25/16 10:00 09/25/16 10:00 09/25/16 10:00 09/25/16 10:00 09/25/16 10:00 General appearance: Present: A&O X 3, morbidly obese, no acute distress - Head Head exam: Present: atraumatic, normocephalic - Eye Eye exam: Present: PERRL, conjuntiva pink, sclera anicteric Pupils: Present: PERRL - Neck Neck exam general surgery: Present: supple, trachea midline. Absent: lymphadenopathy - Respiratory Respiratory exam: Present: CTAB. Absent: accessory muscle use, rales, rhonchi, wheezes - Cardiovascular Cardiovascular exam: Present: RRR, +S1, +S2. Absent: diastolic murmur, gallop, rubs, systolic murmur - GI/Abdominal GI/Abdominal exam: Present: normal bowel sounds, soft, no peritoneal signs. Absent: distended, tenderness - Extremities Exam Extremities exam: Present: warm, radial pulses palpable and symetrical. Absent : calf tenderness, cyanotic, pedal edema - Neurological Exam Neurological exam: Present: CN II-XII intact, oriented X3, no focal deficits. Absent: pronater drift, facial droop, speech deficit - Skin Skin exam: Present: dry, intact Internal Medicine: Result - Labs CBC & Chem 7: 09/25/16 04:51 09/25/16 04:51 Labs: Short CBC 09/25/16 Range/Units 04:51 WBC 8.3 (4.3-11.1) K/mcL Hgb 11.6 (11.5-15.4) g/dL Hct 36.9 (35.3-44.9) % Plt Count 320 D (140-400) K/mcL Neutrophils # 7.3 (1.6-8.9) K/mcL BMP 09/25/16 04:51 Sodium 137 Potassium 4.2 Chloride 100 Carbon Dioxide 23 BUN 24 H Creatinine 1.21 H Glucose 468 H Calcium 9.5 Cardiac Enzymes 09/24/16 09/24/16 Range/Units 16:33 22:17 Troponin I 0.00 0.00 (0-0.03) ng/mL - ABG Interpretation ABG results: PT/INR, D-dimer PT 15.5 Seconds (9.4-12.1) H 09/24/16 10:40 Consult Discharge Plan - Plan Referrals: Mini Engle, [employer] [Primary Care Provider] -
--- NOTE | 2016-09-25 13:51 | Pulmonology Consult Note ---
Date of Encounter: 09/25/16 Time of Encounter: 13:49 Assessment and Plan (1) Acute respiratory failure Current Visit: Yes Status: Acute Suspect this is more related to cardiogenic pulmonary edema elevated BNP does have underlying pneumonia right side but really a possibly of clinical markers of infection. No leukocytosis fevers no cough etc. and she has been treated already for pneumonia with a broad-spectrum respiratory fluoroquinolone. Recommend echocardiogram gentle diuresis and further evaluation of potential cardiac causes of dyspnea Qualifiers: Respiratory failure complication: hypoxia Qualified Code(s): J96.01 - Acute respiratory failure with hypoxia (2) DVT prophylaxis Current Visit: Yes Status: Acute Recommended holding anticoagulation for 24 hours to see clinical course and if additional invasive testing such as bronchoscopy would be needed although I doubt this will be helpful (3) Pleural effusion Current Visit: Yes Status: Acute Trivial right-sided pleural effusion likely suspect cardiac etiology indication for diagnostic thoracentesis unless patient clinically shows signs of worsening sepsis in which case he could consider CT-guided aspiration. (4) Pneumonia Current Visit: Yes Status: Acute Patient has community-acquired pneumonia which has been treated with respiratory fluoroquinolone likely delay and radiographic resolution but clinically does not appear to be infected at this time if clinically worsens and showing more signs of sepsis could also consider bronchoscopy for an unresolved infiltrate but again clinically there is just not convincing case with this woman is suffering from untreated pneumonia Qualifiers: Pneumonia type: due to unspecified organism Laterality: right Lung location: lower lobe of lung Qualified Code(s): J18.1 - Lobar pneumonia, unspecified organism (5) Atrial fibrillation Current Visit: No Status: Acute Right stable being managed by the primary team Qualifiers: Atrial fibrillation type: paroxysmal Qualified Code(s): I48.0 - Paroxysmal atrial fibrillation History of Present Illness Consult date: 09/25/16 Requesting physician: Gregory Daniels Reason for consult: pneumonia Chief complaint: Shortness of breath History of present illness: This is a 66-year-old woman with a history of asthma (appears mild persistent) varicose smoker but quit in 2000 recent diagnosis of atrial fibrillation and was treated about a week ago for pneumonia. Had some improvement after initiation of antimicrobials however over the last couple of days before presentation to the ED yesterday she noted that she just felt increasing shortness of breath felt weak and tired denies any significant cough fever chills has no some leg swelling. CTA was done on arrival which was negative for filling defect that was notable for unresolved right lower lobe pneumonia with a small right pleural effusion. Pulmonary was consulted to comment on the pleural effusion and if the pleural effusion would need to be tapped. Past Med Surg Social Fam HX - Past Medical History Medical history: asthma, atrial fibrillation, cancer (kidney cancer s/p kidney resection 2014), diabetes, GERD, hyperlipidemia, hypertension Psychiatric history: no psych history - Past Surgical History Surgical History: appendectomy, cancer surgery (Kidney resection), cholecystectomy, hysterectomy, knee replacement - Social History Smoking Status: Former smoker (Heavy former smoker: 4-5PPD x 30+ years) Smokeless Tobacco Status: No Alcohol use: none Drug use: none - Family History Mother Adopted: [place]: [place] Family Member Ethnicity: Non- Living Status: Age at : 55 Hx Family Cardiac Disorders: No Hx Family Respiratory Disorders: Yes (emphysema) Hx Family Cancer: No Hx Family GI Disorders: No Hx Family Endocrine Disorder: No Hx Family Neuromuscular Disorders: No Hx Family Neurologic Disorders: Yes (depression) Hx Family HEENT Disorders: No Hx Family Autoimmune Disorders: No Medications and Allergies Atorvastatin Calcium [Lipitor] 40 mg PO DAILY 05/30/16 [History] Esomeprazole Magnesium [Nexium] 40 mg PO DAILY 05/30/16 [History] Insulin Glargine,Hum.rec.anlog [Lantus Solostar] 100 unit SQ HS 05/30/16 [ History] Insulin LISPRO [Humalog Kwikpen U-100] 12 unit SQ TID 05/30/16 [History] Meclizine [Antivert] 12.5 mg PO TID PRN #20 tablet 05/30/16 [Rx] Sertraline HCl [Zoloft] 100 mg PO DAILY 05/30/16 [History] Ascorbic Acid [Vitamin C] 500 mg PO DAILY #30 tablet 09/18/16 [Rx] Digoxin [Lanoxin] 0.25 mg PO DAILY #30 tablet 09/18/16 [Rx] Ferrous Sulfate 325 mg PO DAILY #30 tablet 09/18/16 [Rx] Levofloxacin [Levaquin] 500 mg PO DAILY #3 tablet 09/18/16 [Rx] Lisinopril [Zestril] 10 mg PO DAILY #0 09/18/16 [Rx] Metoprolol XL (24 HR) Succ [Toprol Xl] 25 mg PO DAILY #30 tab.er.24h 09/18/16 [ Rx] Verapamil ER (24 HR) [Calan SR] 180 mg PO DAILY #30 tablet.er 09/18/16 [Rx] Aspirin [Lo-Dose Aspirin EC] 81 mg PO DAILY 09/24/16 [History] Rivaroxaban [Xarelto] 20 mg PO QPM 09/24/16 [History] Allergies Penicillins Allergy (Verified 09/24/16 15:42) Hives adhesive tape Adverse Reaction (Verified 09/24/16 15:42) See Comments TAPE CAUSES BRUISING- All Systems: A 10-system review of systems was performed and is negative for pertinent findings except as documented above in the HPI. Physical Examination Vital Signs: Vital Signs, Last 4 Hours Temp Pulse Resp BP Pulse Ox 09/25/16 10:00 98.0 F 65 16 125/49 95 General appearance: no acute distress Eyes: nonicteric ENT: oropharynx moist Neck: supple Effort: normal Auscultation: bilateral: diminished breath sounds (No wheeze no rhonchi) Cardiovascular: irregular rhythm Gastrointestinal: normoactive bowel sounds Integumentary: normal Extremities: edema normal mental status, non-focal exam mood appropriate Results - Laboratory Findings CBC and BMP: 09/25/16 04:51 09/25/16 04:51 PT/INR, D-dimer PT 15.5 Seconds (9.4-12.1) H 09/24/16 10:40 Abnormal lab findings: Abnormal lab results MCH 26.2 pg (28.0-33.3) L 09/25/16 04:51 MCHC 31.4 g/dL (31.6-35.5) L 09/25/16 04:51 Lymphocytes # 0.5 K/mcL (0.6-4.6) L 09/25/16 04:51 PT 15.5 Seconds (9.4-12.1) H 09/24/16 10:40 APTT 48.2 Seconds (26.0-36.0) H 09/24/16 10:40 BUN 24 mg/dL (7-20) H 09/25/16 04:51 Creatinine 1.21 mg/dL (0.57-1.11) H 09/25/16 04:51 Est GFR ( Amer) 54 (> 60) L 09/25/16 04:51 Est GFR (Non-Af Amer) 45 (> 60) L 09/25/16 04:51 Glucose 468 mg/dL (70-99) H 09/25/16 04:51 POC Glucose 540 (58-89) H* 09/24/16 22:43 Calculated Osmolality 309 (280-300) H 09/25/16 04:51 Alkaline Phosphatase 247 Units/L (38-126) H 09/24/16 10:40 C-Reactive Protein 15 mg/L (Less than 5) H 09/24/16 10:40 B-Natriuretic Peptide 132 pg/mL (0-100) H 09/24/16 10:40 Albumin 3.0 g/dL (3.5-5.0) L 09/24/16 10:40 Albumin/Globulin Ratio 0.9 (1.1-2.2) L 09/24/16 10:40 - Diagnostic Findings Chest x-ray: report reviewed, image reviewed CT scan - chest: report reviewed, image reviewed - Clinical Findings Intake & Output: Intake & Output 09/24/16 09/25/16 09/25/16 23:59 07:59 15:59 Intake Total 340 / 340 1640 / 1640 900 / 900 Output Total 0 / 0 500 / 500 Balance 340 / 340 1640 / 1640 400 / 400 Weight 111.7 kg Consult Discharge Plan - Plan Referrals: Mini Engle, [employer] [Primary Care Provider] -
--- NOTE | 2016-09-25 14:04 | Electrocardiograph Report ---
[place] [id number] Test Date: 2016-09-24 Pat Name: Katelyn Dow Department: 103 Room: 2NE20 Gender: F Senior Construction Manager: : 1950 Requested By: Ulyssse Paul Order Number: [id number] Reading MD: Bella Bauer Measurements Intervals [place] Rate: 61 P: 56 TN: 184 QRS: 1 QRSD: 94 T: 20 QT: 390 QTc: 394 Interpretive Statements SINUS RHYTHM Electronically Signed On 09-25-2016 14:02:32 EST by Bella Bauer
[2016-09-25] MEDS ORDERED: *HR* Rivaroxaban 15 MG TABLET PO SCH (18:00)
[2016-09-25] MEDS: Insulin DETEMIR 100 UNIT/ML X5UNITS SQ SCH (22:13)
[2016-09-26] MEDS: Ipratropium/Albuterol Neb 3 ML IH SCH ×4 (05:22→23:26)
[2016-09-26 05:58] LABS: Basophils # 0.1 K/mcL (0.0-0.2); Basophils % 0.6 %; Eosinophils # 0.1 K/mcL (0.0-0.6); Eosinophils % 0.8 %; Hematocrit 30.5 % (35.3-44.9); Immature Granulocytes % 1.1 % (0-4); Immature Platelets 2.8 % (1.1-6.1); Lymphocytes # 1.4 K/mcL (0.6-4.6); Lymphocytes % 14.8 %; Mean Corpuscular HGB Conc 31.1 g/dL (31.6-35.5); Mean Corpuscular Hemoglobin 26.5 pg (28.0-33.3); Mean Corpuscular Volume 85.2 fL (83.0-100.0); Mean Platelet Volume 12.1 fL (9.4-12.4); Monocytes # 0.6 K/mcL (0.0-1.3); Monocytes % 6.6 %; Neutrophils # 7.3 K/mcL (1.6-8.9); Platelet Count 285 K/mcL (140-400); Red Blood Count 3.58 M/mcL (3.82-4.97); Red Cell Distribution Width 13.3 % (11.5-14.5); Segmented Neutrophils % 76.1 %
[2016-09-26 06:01] LABS: Hemoglobin 9.5 g/dL (11.5-15.4)
[2016-09-26] MEDS ORDERED: Regadenoson 0.4 MG/5 ML SYRINGE IVP ONE (06:11)
[2016-09-26 06:13] LABS: Albumin 2.7 g/dL (3.5-5.0); Albumin/Globulin Ratio 0.9 (1.1-2.2); Bilirubin,Total 0.2 mg/dL (0.2-1.2); Calcium 8.4 mg/dL (8.6-10.8); Potassium 4.6 mEq/L (3.5-4.5); Total Protein 5.7 g/dL (6.0-8.3)
[2016-09-26] MEDS ORDERED: Insulin LISPRO 300 UNITS/3 ML VIAL SQ SCH (07:54)
[2016-09-26] MEDS: Metoprolol XL (24 HR) Succ 25 MG TAB.ER.24H PO SCH (09:59)
[2016-09-26] MEDS: Aspirin Enteric Coated 81 MG Tablet PO SCH (09:59)
[2016-09-26] MEDS: Verapamil ER (24 HR) 180 MG TABLET.ER PO SCH (09:59)
[2016-09-26] MEDS: *HR* Digoxin 0.25 MG TABLET PO SCH (10:00)
[2016-09-26] MEDS: Insulin LISPRO 300 UNITS/3 ML VIAL SQ SCH ×5 (10:00→17:32)
[2016-09-26] MEDS: Ascorbic Acid 500 MG TABLET PO SCH (10:00)
[2016-09-26] MEDS: Aztreonam 1,000 MG in D5% in Water (Mini-Bag+) 100 ML IVPB SCH ×2 (10:02→17:31)
[2016-09-26] MEDS ORDERED: Acetaminophen 325 MG TABLET PO ONE (11:39)
--- NOTE | 2016-09-26 11:53 | Internal Med Progress Note ---
<PelonMarcellus parker - Last Filed: 09/26/16 11:51> Date of Encounter: 09/26/16 Time of Encounter: 11:51 - Assessment and plan (1) Acute respiratory failure Current Visit: Yes Status: Acute Assessment and plan: Likely related to underlying pneumonia however cardiac causes cannot be excluded. Echo revealed moderate diastolic dysfunction. Cardiac Stress test being performed, 2 day test, results tomorrow. Continue oxygen supplementation. Patient will likely require oxygen supplementation for at least a short period of time of discharge. Qualifiers: Respiratory failure complication: hypoxia Qualified Code(s): J96.01 - Acute respiratory failure with hypoxia (2) Pneumonia Current Visit: Yes Status: Acute Assessment and plan: Healthcare associated due to recent hospitalization. Currently on vancomycin and aztreonam. Clinically improving. Continue antibiotics. Qualifiers: Pneumonia type: due to unspecified organism Laterality: right Lung location: lower lobe of lung Qualified Code(s): J18.1 - Lobar pneumonia, unspecified organism (3) SARAN (acute kidney injury) Current Visit: Yes Status: Acute Assessment and plan: Possibly related to dehydration from diuresis. She continues to have good urine output. We will hold Lasix. We will check urine studies. Will continue to monitor. Renally dose medications including digoxin and vancomycin. Will give 500 mL bolus. (4) Pleural effusion Current Visit: Yes Status: Acute Assessment and plan: small right-sided pleural effusion and CT scan. Parapneumonic versus cardiogenic. Continue antibiotic treatment and workup for ischemic heart disease as discussed above. (5) Microcytic anemia Current Visit: No Status: Acute Assessment and plan: With an acute drop in hemoglobin today. No signs of obvious bleeding. Patient denies blood in her stool. Patient deferred rectal exam. Patient is on Xarelto , will hold at this time. Monitor CBC (6) DVT prophylaxis Current Visit: Yes Status: Acute Assessment and plan: Currently on xarelto, will hold for anemia as discussed above. Will initiate EPCDs for now. - Subjective Interval history: Patient seen and examined at bedside. Patient has no complaints, she states she feels better. Her shortness of breath is improving. She denies chest pain at this time. She reports a dry cough. - Constitutional Vitals: Temp Pulse Resp BP Pulse Ox 98.2 F 68 16 116/68 95 09/26/16 11:06 09/26/16 11:06 09/26/16 11:06 09/26/16 11:06 09/26/16 11:06 General appearance: Present: A&O X 3, morbidly obese, no acute distress - Respiratory Respiratory exam: Present: decreased breath sounds. Absent: rales, rhonchi, wheezes - Cardiovascular Cardiovascular exam: Present: RRR. Absent: gallop, rubs, systolic murmur - GI/Abdominal GI/Abdominal exam: Present: normal bowel sounds, soft. Absent: distended, tenderness - Rectal Rectal exam: Present: deferred - Extremities Exam Extremities exam: Present: warm. Absent: calf tenderness, pedal edema - Neurological Exam Neurological exam: Present: alert, CN II-XII intact, oriented X3, no focal deficits Internal Medicine: Result - Labs CBC & Chem 7: 09/26/16 05:40 09/26/16 05:40 Labs: Short CBC 09/26/16 Range/Units 05:40 WBC 9.6 (4.3-11.1) K/mcL Hgb 9.5 L D (11.5-15.4) g/dL Hct 30.5 L (35.3-44.9) % Plt Count 285 (140-400) K/mcL Neutrophils # 7.3 (1.6-8.9) K/mcL BMP 09/26/16 05:40 Sodium 132 L Potassium 4.6 H Chloride 98 Carbon Dioxide 24 BUN 48 H D Creatinine 1.66 H Glucose 330 H Calcium 8.4 L Liver Function 09/26/16 Range/Units 05:40 Total Bilirubin 0.2 (0.2-1.2) mg/dL AST 34 (5-34) Units/L ALT 41 (0-55) Units/L Alkaline Phosphatase 198 H (38-126) Units/L Albumin 2.7 L (3.5-5.0) g/dL - ABG Interpretation ABG results: PT/INR, D-dimer PT 15.5 Seconds (9.4-12.1) H 09/24/16 10:40 - VTE Documentation of Mechanical Device: Graduated compression elastic hosiery Consult Discharge Plan - Plan Referrals: Mini Engle, [employer] [Primary Care Provider] - <Nadeem Feliz P - Last Filed: 09/26/16 17:44> Date of Encounter: 09/26/16 - Assessment and plan (1) Pneumonia Current Visit: Yes Status: Acute Qualifiers: Pneumonia type: due to unspecified organism Laterality: right Lung location: lower lobe of lung Qualified Code(s): J18.1 - Lobar pneumonia, unspecified organism (2) Obesity Current Visit: Yes Status: Acute Qualifiers: Obesity type: unspecified obesity type Obesity severity: unspecified obesity severity Qualified Code(s): E66.9 - Obesity, unspecified (3) Pleural effusion Current Visit: Yes Status: Acute (4) DVT prophylaxis Current Visit: Yes Status: Acute - Constitutional Vitals: Temp Pulse Resp BP Pulse Ox 97.9 F 47 18 100/55 92 L 09/26/16 16:35 09/26/16 16:35 09/26/16 16:35 09/26/16 16:35 09/26/16 16:35 Internal Medicine: Result - Labs CBC & Chem 7: 09/26/16 14:33 09/26/16 14:33 Labs: Short CBC 09/26/16 09/26/16 Range/Units 05:40 14:33 WBC 9.6 9.5 (4.3-11.1) K/mcL Hgb 9.5 L D 9.4 L (11.5-15.4) g/dL Hct 30.5 L 29.0 L (35.3-44.9) % Plt Count 285 114 L D (140-400) K/mcL Neutrophils # 7.3 7.2 (1.6-8.9) K/mcL BMP 09/26/16 09/26/16 05:40 14:33 Sodium 132 L 132 L Potassium 4.6 H 4.5 Chloride 98 98 Carbon Dioxide 24 24 BUN 48 H D 51 H Creatinine 1.66 H 1.30 H Glucose 330 H 358 H Calcium 8.4 L 8.0 L Liver Function 09/26/16 Range/Units 05:40 Total Bilirubin 0.2 (0.2-1.2) mg/dL AST 34 (5-34) Units/L ALT 41 (0-55) Units/L Alkaline Phosphatase 198 H (38-126) Units/L Albumin 2.7 L (3.5-5.0) g/dL - ABG Interpretation ABG results: PT/INR, D-dimer PT 15.5 Seconds (9.4-12.1) H 09/24/16 10:40 - Attending Attestation I examined this patient and my medical decision-making was reviewed with the MOLD CHIPPER/PA/Advanced Practice Nurse/Resident Physician. I agree with the documented findings, disposition and treatment plan as described except to the extent set forth below.
[2016-09-26] MEDS ORDERED: 0.9 % Sodium Chloride 500 ML IVC ONE (12:10)
[2016-09-26 14:52] LABS: Basophils % 0.4 %; Eosinophils # 0.1 K/mcL (0.0-0.6); Eosinophils % 1.2 %; Hemoglobin 9.4 g/dL (11.5-15.4); Immature Granulocytes % 1.3 % (0-4); Lymphocytes # 1.3 K/mcL (0.6-4.6); Lymphocytes % 14.1 %; Mean Corpuscular HGB Conc 32.4 g/dL (31.6-35.5); Mean Corpuscular Volume 83.3 fL (83.0-100.0); Mean Platelet Volume 12.5 fL (9.4-12.4); Monocytes # 0.7 K/mcL (0.0-1.3); Monocytes % 6.8 %; Neutrophils # 7.2 K/mcL (1.6-8.9); Platelet Count 114 K/mcL (140-400); Red Blood Count 3.48 M/mcL (3.82-4.97); Red Cell Distribution Width 13.5 % (11.5-14.5); Segmented Neutrophils % 76.2 %
[2016-09-26 15:01] LABS: Potassium 4.5 mEq/L (3.5-4.5)
[2016-09-26] MEDS ORDERED: Vancomycin 1,000 MG in D5% in Water 250 ML IVPB ONE (16:00)
[2016-09-26] MEDS: Insulin DETEMIR 100 UNIT/ML X5UNITS SQ SCH (20:38)
[2016-09-26 20:39] LABS: Creatinine,Urine 98 mg/dL
[2016-09-26 21:43] LABS: Osmolality,Urine 335 mOsm/kg (300-1090)
[2016-09-26 22:46] LABS: Protein/Creatinine Ratio,Urine 0.12 mg/mg (0-0.20)
[2016-09-26 22:47] LABS: Sodium, Urine < 20.0 mEq/L
[2016-09-27] MEDS: Aztreonam 1,000 MG in D5% in Water (Mini-Bag+) 100 ML IVPB SCH ×2 (01:51→09:41)
[2016-09-27] MEDS: Ipratropium/Albuterol Neb 3 ML IH SCH ×3 (05:15→16:59)
[2016-09-27 05:45] LABS: Basophils # 0.1 K/mcL (0.0-0.2); Basophils % 0.6 %; Eosinophils # 0.2 K/mcL (0.0-0.6); Eosinophils % 1.8 %; Hematocrit 32.7 % (35.3-44.9); Hemoglobin 10.1 g/dL (11.5-15.4); Immature Granulocytes % 1.4 % (0-4); Lymphocytes % 11.4 %; Mean Corpuscular HGB Conc 30.9 g/dL (31.6-35.5); Mean Corpuscular Hemoglobin 25.9 pg (28.0-33.3); Mean Corpuscular Volume 83.8 fL (83.0-100.0); Mean Platelet Volume 11.1 fL (9.4-12.4); Monocytes # 0.6 K/mcL (0.0-1.3); Monocytes % 6.7 %; Neutrophils # 6.5 K/mcL (1.6-8.9); Platelet Count 224 K/mcL (140-400); Red Cell Distribution Width 13.5 % (11.5-14.5); Segmented Neutrophils % 78.1 %
[2016-09-27 06:05] LABS: BUN/Creatinine Ratio 63 (6-26); Blood Urea Nitrogen 56 mg/dL (7-20); Calcium 8.3 mg/dL (8.6-10.8); Carbon Dioxide 23 mEq/L (19-29); Chloride 102 mEq/L (98-109); Glucose 267 mg/dL (70-99); Osmolality,Calculated 303 (280-300); Potassium 4.8 mEq/L (3.5-4.5); Sodium 134 mEq/L (136-145); eGFR For African Americans > 60 (> 60); eGFR For Non-African Americans > 60 (> 60)
[2016-09-27] MEDS: Insulin LISPRO 300 UNITS/3 ML VIAL SQ SCH ×4 (09:32→12:00)
[2016-09-27] MEDS ORDERED: D5% in Water (Mini-Bag+) 100 ML IVPB ONE (09:38)
[2016-09-27] MEDS: *HR* Digoxin 0.25 MG TABLET PO SCH (11:53)
[2016-09-27] MEDS: Aspirin Enteric Coated 81 MG Tablet PO SCH (11:53)
[2016-09-27] MEDS: Verapamil ER (24 HR) 180 MG TABLET.ER PO SCH (11:53)
[2016-09-27] MEDS: Metoprolol XL (24 HR) Succ 25 MG TAB.ER.24H PO SCH (11:53)
[2016-09-27] MEDS: Ascorbic Acid 500 MG TABLET PO SCH (11:53)
--- NOTE | 2016-09-27 11:57 | Nuclear Medicine Stress Report ---
Regadenoson Nuclear 2 day Name: Katelyn Dow Date of Study: 09/26/2016 Date: 1950 Ht: 61.0 in Medical Record#: [id number] Age: 66 Wt: 255.0 lb Gender: Female Order #: [id number] Location: [facility] Room: 2n0 Supervising Provider: Bryan Montero CNP Reading Physician: Marcellus Fonseca MD, [facility] Ordering Physician: Nadeem Feliz MD Primary Care Physician: Mini Engle CNP Stress Technologist: Sudheer Tse [facility] Behavioral Health Technician: Carey Carter Indications: Chest Pain Impression: No significant ECG changes with regadenoson. Gated LVEF = 68%. Perfusion imaging was negative for ischemia or infarct. History: Hypertension Hypercholesteremia Stress Test Summary: Stress Test Type: Pharmacologic Baseline Information: Initial Heart Rate: 58 Blood Pressure: 118/72 Stress Information: Test Terminated Due to (primary): As per protocol Maximum Blood Pressure: 120/74 Maximum Heart Rate: 66 Percent Maximum Heart Rate Achieved: 43 Double Product: [id number] Symptoms: No chest symptoms Nuclear Summary: SPECT myocardial perfusion imaging using Tc99m Sestamibi given intravenously was performed at rest and following cardiac stress testing. The resting images were obtained following initial dose of 31 mCi. Following stress an additional dose of 29.6 mCi was given at peak exercise or 30 seconds post regadenoson infusion. Findings: Stress Note * Resting ECG demonstrated sinus bradycardia (HR 58 bpm), low voltage in precordial leads. * No baseline arrhythmias were noted. * Patient had no chest pain during stress. * No arrhythmias were noted during stress. * No significant ECG changes with regadenoson. Hemodynamic responses * Normal hemodynamic responses to pharmacologic stress. Study Quality * Study quality is average. Gated EF % * Gated LVEF = 68%. * Normal Segmental Perfusion in rest. * Normal segmental perfusion in stress. TID * No evidence of transient ischemic dilatation. Updated by Marcellus Fonseca MD, [facility] on 09/27/2016 11:51:49 AM electronically signed on 09/27/2016 11:52:15 AM with status of Final
[2016-09-27 12:03] VITALS: BP 140/60
--- NOTE | 2016-09-27 16:05 | Discharge Summary ---
<Marcellus Garcia - Last Filed: 09/27/16 15:57> Date of Encounter: 09/27/16 Time of Encounter: 15:57 - Discharge Diagnosis (1) Acute respiratory failure Priority: Primary Status: Acute Qualifiers: Respiratory failure complication: hypoxia Qualified Code(s): J96.01 - Acute respiratory failure with hypoxia (2) Pneumonia Priority: Primary Status: Acute Qualifiers: Pneumonia type: due to unspecified organism Laterality: right Lung location: lower lobe of lung Qualified Code(s): J18.1 - Lobar pneumonia, unspecified organism (3) SARAN (acute kidney injury) Priority: Primary Status: Acute (4) Pleural effusion Priority: Primary Status: Acute (5) Microcytic anemia Priority: Primary Status: Acute (6) DVT prophylaxis Priority: Secondary Status: Acute - Discharge Medications Prescriptions: Ciprofloxacin HCl [Cipro] 500 mg PO BID #14 tablet Home Medications: Atorvastatin Calcium [Lipitor] 40 mg PO DAILY 05/30/16 [History] Esomeprazole Magnesium [Nexium] 40 mg PO DAILY 05/30/16 [History] Insulin Glargine,Hum.rec.anlog [Lantus Solostar] 100 unit SQ HS 05/30/16 [ History] Meclizine [Antivert] 12.5 mg PO TID PRN #20 tablet 05/30/16 [Rx] Sertraline HCl [Zoloft] 100 mg PO DAILY 05/30/16 [History] Ascorbic Acid [Vitamin C] 500 mg PO DAILY #30 tablet 09/18/16 [Rx] Digoxin [Lanoxin] 0.25 mg PO DAILY #30 tablet 09/18/16 [Rx] Ferrous Sulfate 325 mg PO DAILY #30 tablet 09/18/16 [Rx] Lisinopril [Zestril] 10 mg PO DAILY #0 09/18/16 [Rx] Metoprolol XL (24 HR) Succ [Toprol Xl] 25 mg PO DAILY #30 tab.er.24h 09/18/16 [ Rx] Verapamil ER (24 HR) [Calan SR] 180 mg PO DAILY #30 tablet.er 09/18/16 [Rx] Aspirin [Lo-Dose Aspirin EC] 81 mg PO DAILY 09/24/16 [History] Ciprofloxacin HCl [Cipro] 500 mg PO BID #14 tablet 09/27/16 [Rx] Rivaroxaban [Xarelto] 20 mg PO QPM #30 09/27/16 [Rx] Allergies/Adverse Reactions: Allergies Penicillins Allergy (Verified 09/24/16 15:42) Hives adhesive tape Adverse Reaction (Verified 09/24/16 15:42) See Comments TAPE CAUSES BRUISING- Procedures/tests Complete & Pending: Procedures Performed prior 72 hours Category Date Time Status NM cara perf SPECT multi [NM] Routine Exams 09/25/16 13:01 Taken SP pharm nuclear stress Routine Y 09/26/16 07:30 Completed Date of admission: 09/24/16 15:35 Primary care physician: Mini Engle CNP Discharging clinician: Marcellus Garcia Anticipated date of discharge: 09/27/16 - Patient Status Disposition: Home, Self-Care Condition: Fair Functional capacity at discharge: independent ambulation Overall status at discharge: patient is progressing back to baseline - Discharge Instructions Follow Up With: Mini Engle CNP [Primary Care Provider] - Additional Instructions: Please follow up with her primary care within 1 week. Please resume your home medications as directed. Please complete 7 more days of ciprofloxacin (antibiotic) Please take Xarelto daily Please return for any new or worsening symptoms. - Diet and Activity Activity: increase activity as tolerated, wear oxygen at all times Diet: advance to your usual diet Interval History: Patient seen and examined. She has no complaints at this time. She states she is more shortness of breath or cough. She denies fever, chills, chest pain. Hospital course: Ms. Dow is a 66 year old female with history of recently diagnosed atrial fibrillation, diabetes presented with shortness of breath. Patient was recently hospitalized at [place] with pneumonia. Patient was admitted for worsening shortness of breath. Patient underwent CTA which was remarkable for pneumonia but was negative for pulmonary embolism. Patient underwent stress test due to concerns for cardiac causes of her dyspnea which was negative. Patient responded well. She will require oxygen at discharge. Would recommend further outpatient testing for dyspnea including PFTs and repeat imaging to ensure resolution. - Time Spent with Patient Total time spent providing and/or coordinating discharge services: - Constitutional Vitals: Temp Pulse Resp BP Pulse Ox 97.4 F L 63 16 140/60 98 09/27/16 12:00 09/27/16 12:00 09/27/16 12:00 09/27/16 12:00 09/27/16 12:00 General appearance: Present: A&O X 3, morbidly obese, no acute distress - Respiratory Respiratory exam: Present: decreased breath sounds. Absent: rales, rhonchi, wheezes - Cardiovascular Cardiovascular exam: Present: RRR, +S1, +S2. Absent: gallop, rubs, systolic murmur - GI/Abdominal GI/Abdominal exam: Present: normal bowel sounds, soft. Absent: distended, tenderness - Extremities Exam Extremities exam: Absent: pedal edema, tenderness - Neurological Exam Neurological exam: Present: alert, CN II-XII intact, oriented X3, no focal deficits - VTE Documentation of Mechanical Device: Graduated compression elastic hosiery <Michael Hartman - Last Filed: 09/27/16 16:40> Date of Encounter: 09/27/16 - Discharge Diagnosis (1) Acute respiratory failure Status: Acute Qualifiers: Respiratory failure complication: hypoxia Qualified Code(s): J96.01 - Acute respiratory failure with hypoxia (2) Pneumonia Status: Acute Qualifiers: Pneumonia type: due to unspecified organism Laterality: right Lung location: lower lobe of lung Qualified Code(s): J18.1 - Lobar pneumonia, unspecified organism (3) DM type 2 (diabetes mellitus, type 2) Priority: Secondary Status: Chronic Qualifiers: Diabetes mellitus complication status: with neurologic complications Diabetes mellitus complication detail: with polyneuropathy Diabetes mellitus residential insulin use: with intermediate project manager use Qualified Code(s): E11.42 - Type 2 diabetes mellitus with diabetic polyneuropathy; Z79.4 - roasterman (current) use of insulin (4) Atrial fibrillation Priority: Secondary Status: Acute Qualifiers: Atrial fibrillation type: paroxysmal Qualified Code(s): I48.0 - Paroxysmal atrial fibrillation Procedures/tests Complete & Pending: Procedures Performed prior 72 hours Category Date Time Status NM cara perf SPECT multi [NM] Routine Exams 09/25/16 13:01 Taken SP pharm nuclear stress Routine Y 09/26/16 07:30 Completed Date of admission: 09/24/16 15:35 Primary care physician: Mini Engle CNP Hospital course: Ms. Dow is a 66 year old female - Time Spent with Patient Total time spent providing and/or coordinating discharge services: 39min - Constitutional Vitals: Temp Pulse Resp BP Pulse Ox 97.4 F L 63 16 140/60 32 L 09/27/16 12:00 09/27/16 12:00 09/27/16 12:00 09/27/16 12:00 09/27/16 16:00 - Attending Attestation I examined this patient and my medical decision-making was reviewed with the Resident Physician on 09/27/16. I agree with the documented findings, disposition and treatment plan as described except to the extent set forth below. Ms. Dow has headache at this time. Nitro is off. Stress test negative for ischemia. No new issues at this time. Exam Alert. Heart reg Lungs diminished Plan D/C today Qualified for home oxygen.
[2016-09-27] MEDS ORDERED: *HR* Rivaroxaban 10 MG TABLET PO SCH (18:00)
[2016-09-27] MEDS ORDERED: Aminoglycoside Consult 1 EACH MC ONE (18:42)
== END 2016-09-27 18:43 | disposition home or self-care (01) | DRG 193 ==
LOC: EMEROO 10:27 → SUATTDRO 15:35 → 2NENU 15:35
PROVIDERS: ADMIT Internal Medicine; ATTEND Internal Medicine

== ENCOUNTER 2019-08-16 19:31 | Observation (INO) ==
[2019-08-16] MEDS ORDERED: Ipratropium/Albuterol Neb 3 ML IH ONE (19:38)
[2019-08-16 20:07] LABS: Basophils # 0.1 K/mcL (0.0-0.2); Basophils % 0.6 %; Eosinophils # 0.2 K/mcL (0.0-0.6); Eosinophils % 2.8 %; Hematocrit 31.9 % (35.3-44.9); Hemoglobin 10.5 g/dL (11.5-15.4); Immature Granulocytes % 1.3 % (0-4); Lymphocytes # 1.1 K/mcL (0.6-4.6); Lymphocytes % 13.1 %; Mean Corpuscular HGB Conc 32.9 g/dL (31.6-35.5); Mean Corpuscular Hemoglobin 28.3 pg (28.0-33.3); Mean Platelet Volume 12.5 fL (9.4-12.4); Monocytes # 0.6 K/mcL (0.0-1.3); Monocytes % 7.1 %; Neutrophils # 6.5 K/mcL (1.6-8.9); Platelet Count 147 K/mcL (140-400); Red Blood Count 3.71 M/mcL (3.82-4.97); Red Cell Distribution Width 13.2 % (11.5-14.5); Segmented Neutrophils % 75.1 %; White Blood Count 8.7 K/mcL (4.3-11.1)
[2019-08-16 20:29] LABS: BUN/Creatinine Ratio 50 (6-26); Blood Urea Nitrogen 65 mg/dL (8-23); Calcium 10.2 mg/dL (8.6-10.3); Carbon Dioxide 28 mEq/L (23-29); Chloride 103 mEq/L (98-107); Glucose 68 mg/dL (70-105); Osmolality,Calculated 309 (280-300); Potassium 5.1 mEq/L (3.5-5.1); Sodium 141 mEq/L (136-145); Troponin I < 0.03 ng/mL (< 0.04); eGFR For African Americans 49 (> 60); eGFR For Non-African Americans 41 (> 60)
[2019-08-17] MEDS ORDERED: Ondansetron 4 MG/2 ML VIAL IVP PRN (00:08)
[2019-08-17] MEDS ORDERED: Naloxone 0.4 MG/ML INJ IVP PRN (00:08)
[2019-08-17] MEDS ORDERED: Dextrose Gel 15 GM/37.5 ML TUBE PO PRN ×2 (00:11)
[2019-08-17] MEDS ORDERED: D5% in Water 1,000 ML IVC PRN (00:11)
[2019-08-17] MEDS ORDERED: *HR* Dextrose 50 % in Water (Syg) 50 ML SYRINGE IVP PRN (00:11)
[2019-08-17 01:50] LABS: Basophils # 0.1 K/mcL (0.0-0.2); Basophils % 0.5 %; Eosinophils # 0.2 K/mcL (0.0-0.6); Eosinophils % 1.6 %; Hematocrit 32.7 % (35.3-44.9); Hemoglobin 10.7 g/dL (11.5-15.4); Immature Granulocytes % 1.5 % (0-4); Lymphocytes # 0.8 K/mcL (0.6-4.6); Lymphocytes % 7.4 %; Mean Corpuscular HGB Conc 32.7 g/dL (31.6-35.5); Mean Corpuscular Hemoglobin 28.3 pg (28.0-33.3); Mean Corpuscular Volume 86.5 fL (83.0-100.0); Monocytes # 0.5 K/mcL (0.0-1.3); Neutrophils # 8.9 K/mcL (1.6-8.9); Platelet Count 235 K/mcL (140-400); Red Blood Count 3.78 M/mcL (3.82-4.97); Red Cell Distribution Width 13.3 % (11.5-14.5); White Blood Count 10.6 K/mcL (4.3-11.1)
[2019-08-17] MEDS: *HR* Heparin 5,000 UNIT/ML VIAL SQ SCH ×3 (04:41→21:11)
[2019-08-17] MEDS ORDERED: Perflutren Lipid Microsphere 1.3 ML in 0.9 % Sodium Chloride 8.7 ML IVP ONE (07:12)
[2019-08-17] MEDS: Acetaminophen 325 MG TABLET PO PRN ×2 (07:41→17:21)
[2019-08-17] MEDS: Furosemide 40 MG/4 ML VIAL IVP SCH (07:46)
[2019-08-17 07:58] LABS: Estimated Average Glucose 186 mg/dl
[2019-08-17] MEDS: Insulin LISPRO 300 UNITS/3 ML VIAL SQ SCH ×3 (08:00→17:17)
[2019-08-17] MEDS ORDERED: Furosemide 40 MG TABLET PO SCH (09:00)
[2019-08-17] MEDS: carvediloL 6.25 MG TABLET PO SCH ×2 (11:13→17:14)
[2019-08-17] MEDS: Aspirin Enteric Coated 81 MG Tablet PO SCH (11:13)
[2019-08-17] MEDS: Isosorbide MONOnitrate (24 HR) 30 MG TAB.ER.24H PO SCH (11:14)
[2019-08-17] MEDS: Gabapentin 300 MG CAPSULE PO SCH ×2 (13:27→21:11)
[2019-08-17] MEDS: Ipratropium/Albuterol Neb 3 ML IH SCH ×3 (13:38→19:53)
[2019-08-17] MEDS: Famotidine 20 MG TABLET PO SCH (17:14)
[2019-08-17] MEDS ORDERED: Insulin LISPRO 300 UNITS/3 ML VIAL SQ SCH (21:00)
[2019-08-17] MEDS ORDERED: Insulin DETEMIR 100 UNIT/ML X5UNITS SQ SCH (21:00)
[2019-08-18] MEDS: Ipratropium/Albuterol Neb 3 ML IH SCH ×5 (00:09→16:35)
[2019-08-18 03:25] LABS: Basophils % 0.5 %; Eosinophils # 0.2 K/mcL (0.0-0.6); Hematocrit 31.5 % (35.3-44.9); Hemoglobin 9.8 g/dL (11.5-15.4); Immature Granulocytes % 1.6 % (0-4); Lymphocytes # 1.1 K/mcL (0.6-4.6); Lymphocytes % 13.5 %; Mean Corpuscular HGB Conc 31.1 g/dL (31.6-35.5); Mean Corpuscular Hemoglobin 27.8 pg (28.0-33.3); Mean Corpuscular Volume 89.2 fL (83.0-100.0); Monocytes # 0.5 K/mcL (0.0-1.3); Monocytes % 6.7 %; Neutrophils # 5.9 K/mcL (1.6-8.9); Platelet Count 147 K/mcL (140-400); Red Blood Count 3.53 M/mcL (3.82-4.97); Red Cell Distribution Width 13.3 % (11.5-14.5); Segmented Neutrophils % 74.7 %; White Blood Count 7.9 K/mcL (4.3-11.1)
[2019-08-18 03:46] LABS: Calcium 9.5 mg/dL (8.6-10.3)
[2019-08-18] MEDS: *HR* Heparin 5,000 UNIT/ML VIAL SQ SCH (04:51)
[2019-08-18] MEDS ORDERED: Regadenoson 0.4 MG/5 ML SYRINGE IVP ONE (06:39)
[2019-08-18] MEDS: Famotidine 20 MG TABLET PO SCH (08:41)
[2019-08-18] MEDS: Gabapentin 300 MG CAPSULE PO SCH (08:42)
[2019-08-18] MEDS: Furosemide 40 MG/4 ML VIAL IVP SCH (08:42)
[2019-08-18] MEDS: Aspirin Enteric Coated 81 MG Tablet PO SCH (08:42)
[2019-08-18] MEDS: Isosorbide MONOnitrate (24 HR) 30 MG TAB.ER.24H PO SCH (08:42)
[2019-08-18] MEDS: carvediloL 6.25 MG TABLET PO SCH (08:42)
[2019-08-18] MEDS: Insulin LISPRO 300 UNITS/3 ML VIAL SQ SCH ×2 (08:46→12:31)
[2019-08-18] MEDS: Acetaminophen 325 MG TABLET PO PRN (08:50)
[2019-08-18 12:27] VITALS: BP 136/68
== END 2019-08-18 17:25 | disposition home or self-care (01) ==
LOC: 3BNU 19:31 → EMEROOARM 19:31 → 3BNU 22:45
PROVIDERS: ADMIT Student in an Organized Health Care Education/Training Program; ATTEND Student in an Organized Health Care Education/Training Program

== ENCOUNTER 2020-11-17 17:10 | Inpatient (IN) ==
[2020-11-17 18:12] LABS: Basophils # 0.1 K/mcL (0.0-0.2); Basophils % 0.5 %; Eosinophils # 0.3 K/mcL (0.0-0.6); Eosinophils % 2.1 %; Hematocrit 31.4 % (35.3-44.9); Hemoglobin 9.9 g/dL (11.5-15.4); Immature Granulocytes % 1.9 % (0-4); Lymphocytes # 0.7 K/mcL (0.6-4.6); Lymphocytes % 5.9 %; Mean Corpuscular HGB Conc 31.5 g/dL (31.6-35.5); Mean Corpuscular Hemoglobin 27.9 pg (28.0-33.3); Mean Corpuscular Volume 88.5 fL (83.0-100.0); Mean Platelet Volume 11.8 fL (9.4-12.4); Monocytes # 0.8 K/mcL (0.0-1.3); Monocytes % 6.3 %; Neutrophils # 10.2 K/mcL (1.6-8.9); Platelet Count 207 K/mcL (140-400); Red Blood Count 3.55 M/mcL (3.82-4.97); Red Cell Distribution Width 13.6 % (11.5-14.5); Segmented Neutrophils % 83.3 %; White Blood Count 12.2 K/mcL (4.3-11.1)
[2020-11-17] MEDS ORDERED: 0.9 % Sodium Chloride 1,000 ML IVC ONE (18:14)
[2020-11-17] MEDS ORDERED: Isovue-370 500 ML BOTTLE IVP ONE (18:24)
[2020-11-17 18:33] LABS: Potassium 4.4 mEq/L (3.5-5.1)
[2020-11-17 18:40] LABS: Troponin I 0.04 ng/mL (< 0.04)
[2020-11-17 18:42] LABS: INR 1.1; Prothrombin Time 12.2 Seconds (9.4-12.1)
[2020-11-17] MEDS ORDERED: Aspirin 325 MG TABLET PO ONE (18:43)
[2020-11-17 18:44] LABS: Activated Partial Thrombo Time 35.2 Seconds (26.0-36.0)
[2020-11-17 18:48] LABS: Thyroid Stimulating Hormone 5.876 mcIU/mL (0.340-5.600)
[2020-11-17 20:43] LABS: Adenovirus Not Detected (Not Detect); Bordetella Pertussis Not Detected (Not Detect); Chlamydophila pneumoniae Not Detected (Not Detect); Coronavirus 229E Not Detected (Not Detect); Coronavirus HKU1 Not Detected (Not Detect); Coronavirus NL63 Not Detected (Not Detect); Coronavirus OC43 Not Detected (Not Detect); Human Metapneumovirus Not Detected (Not Detect); Human Rhinovirus/Enterovirus Not Detected (Not Detect); Influenza A Subtype 2009 H1 Not Detected (Not Detect); Influenza B Not Detected (Not Detect); Mycoplasma pneumoniae Not Detected (Not Detect); Parainfluenza Virus 1 Not Detected (Not Detect); Parainfluenza Virus 2 Not Detected (Not Detect); Parainfluenza Virus 3 Not Detected (Not Detect); Parainfluenza Virus 4 Not Detected (Not Detect); Respiratory Syncytial Virus Not Detected (Not Detect); SARS-CoV-2 Not Detected (Not Detect)
[2020-11-17 20:57] LABS: Bilirubin,Urine Negative (Negative); Blood,Urine Trace (Negative); Clarity,Urine Clear (Clear); Color,Urine Colorless (Yellow); Glucose,Urine (UA) Normal (Normal); Ketones,Urine Negative (Negative); Leukocyte Esterase,Urine Negative (Negative); Mucus,Urine Few per lpf (None-Few); Nitrite,Urine Negative (Negative); Protein,Urine 100 mg/dL (Neg-Trace); RBC,Urine 0-3 per hpf (0-3); Specific Gravity,Urine 1.012 (1.010-1.025); Squamous Epithelial Cell,Urine Few per hpf (None-Few); Urobilinogen,Urine Normal (Normal); WBC,Urine 0-3 per hpf (0-3)
[2020-11-17] MEDS ORDERED: Ondansetron ODT 4 MG TAB.RAPDIS SL PRN (22:55)
[2020-11-17] MEDS ORDERED: Naloxone 0.4 MG/ML INJ IVP PRN (22:55)
[2020-11-17] MEDS ORDERED: Perflutren Lipid Microsphere 1.3 ML in 0.9 % Sodium Chloride 8.7 ML IVP PRN (23:14)
[2020-11-17] MEDS ORDERED: Furosemide 40 MG/4 ML VIAL IVP ONE (23:16)
[2020-11-17] MEDS ORDERED: *HR* Dextrose 50 % in Water (Vial) 50 ML VIAL IVP PRN (23:27)
[2020-11-17] MEDS ORDERED: D5% in Water 1,000 ML IVC PRN (23:27)
[2020-11-17] MEDS ORDERED: Dextrose Gel 15 GM/37.5 ML TUBE PO PRN ×2 (23:27)
[2020-11-18] MEDS: Insulin LISPRO 300 UNITS/3 ML VIAL SUBQ SCH ×4 (01:08→20:38)
[2020-11-18] MEDS: *HR* Metoprolol 5 MG/5 ML VIAL IVP PRN ×2 (02:20→13:56)
[2020-11-18] MEDS: Acetaminophen 325 MG TABLET PO PRN ×3 (02:21→21:50)
[2020-11-18 04:37] LABS: Hematocrit 29.7 % (35.3-44.9); Hemoglobin 9.1 g/dL (11.5-15.4); Mean Corpuscular HGB Conc 30.6 g/dL (31.6-35.5); Mean Corpuscular Hemoglobin 27.7 pg (28.0-33.3); Mean Corpuscular Volume 90.3 fL (83.0-100.0); Mean Platelet Volume 11.6 fL (9.4-12.4); Platelet Count 170 K/mcL (140-400); Red Blood Count 3.29 M/mcL (3.82-4.97); Red Cell Distribution Width 13.7 % (11.5-14.5); White Blood Count 9.9 K/mcL (4.3-11.1)
[2020-11-18 04:46] LABS: INR 1.1; Prothrombin Time 13.2 Seconds (9.4-12.1)
[2020-11-18 04:59] LABS: Calcium 9.3 mg/dL (8.6-10.3); Magnesium 1.9 mg/dL (1.6-2.6); Phosphorous 4.8 mg/dL (2.7-4.5); Potassium 4.4 mEq/L (3.5-5.1)
[2020-11-18 05:25] LABS: Estimated Average Glucose 169 mg/dl; Hemoglobin A1C 7.5 %
[2020-11-18] MEDS ORDERED: INSULIN REGULAR SQ SCH (09:00)
[2020-11-18] MEDS ORDERED: Lidocaine -MPF 2% 2 ML VIAL ONE (09:22)
[2020-11-18] MEDS ORDERED: Ondansetron 4 MG/2 ML VIAL ONE (09:23)
[2020-11-18] MEDS ORDERED: *HR* Propofol 200 MG/20 ML VIAL IVP ONE (09:23)
[2020-11-18] MEDS ORDERED: Lidocaine -MPF 4% 5 ML AMPUL ONE (09:24)
[2020-11-18] MEDS ORDERED: Ipratropium/Albuterol Neb 3 ML ONE (10:14)
[2020-11-18] MEDS: Isosorbide MONOnitrate (24 HR) 30 MG TAB.ER.24H PO SCH (11:20)
[2020-11-18] MEDS: Gabapentin 300 MG CAPSULE PO SCH ×2 (11:20→20:38)
[2020-11-18] MEDS: Aspirin Enteric Coated 81 MG Tablet PO SCH (11:20)
[2020-11-18] MEDS: carvediloL 6.25 MG TABLET PO SCH ×2 (11:20→16:31)
[2020-11-18] MEDS ORDERED: Insulin LISPRO 300 UNITS/3 ML VIAL SUBQ SCH ×2 (11:30→12:00)
[2020-11-18] MEDS: DilTIAZem 50 MG in 0.9 % Sodium Chloride 40 ML IVC SCH ×2 (15:41→21:00)
[2020-11-18 16:37] LABS: Appearance of Body Fluid Slightly Hazy (Clear); Volume of Body Fluid 20 mL
[2020-11-19] MEDS: DilTIAZem 50 MG in 0.9 % Sodium Chloride 40 ML IVC SCH ×5 (03:15→22:42)
[2020-11-19 06:37] LABS: Basophils % 0.3 %; Eosinophils # 0.1 K/mcL (0.0-0.6); Hematocrit 29.2 % (35.3-44.9); Hemoglobin 8.8 g/dL (11.5-15.4); Immature Granulocytes % 1.2 % (0-4); Lymphocytes # 0.8 K/mcL (0.6-4.6); Mean Corpuscular HGB Conc 30.1 g/dL (31.6-35.5); Mean Corpuscular Hemoglobin 27.8 pg (28.0-33.3); Mean Corpuscular Volume 92.4 fL (83.0-100.0); Mean Platelet Volume 12.6 fL (9.4-12.4); Monocytes # 0.9 K/mcL (0.0-1.3); Neutrophils # 10.6 K/mcL (1.6-8.9); Platelet Count 138 K/mcL (140-400); Red Blood Count 3.16 M/mcL (3.82-4.97); Red Cell Distribution Width 13.9 % (11.5-14.5); Segmented Neutrophils % 84.5 %; White Blood Count 12.5 K/mcL (4.3-11.1)
[2020-11-19 07:03] LABS: Potassium 5.2 mEq/L (3.5-5.1)
[2020-11-19] MEDS: Insulin LISPRO 300 UNITS/3 ML VIAL SUBQ SCH ×4 (09:11→22:23)
[2020-11-19] MEDS: Isosorbide MONOnitrate (24 HR) 30 MG TAB.ER.24H PO SCH (09:15)
[2020-11-19] MEDS: Aspirin Enteric Coated 81 MG Tablet PO SCH (09:15)
[2020-11-19] MEDS: carvediloL 25 MG TABLET PO SCH ×2 (09:16→16:45)
[2020-11-19] MEDS: cefTRIAXone 2,000 MG in Water for inj. (sterile) 20 ML IVP SCH (14:34)
[2020-11-19] MEDS: Azithromycin 500 MG in 0.9 % Sodium Chloride 250 ML IVPB SCH (14:34)
[2020-11-19] MEDS ORDERED: Furosemide 40 MG/4 ML VIAL IVP ONE (15:13)
[2020-11-19 15:22] LABS: ABG Base Excess 0 mEq/L (-2 to 3); ABG HCO3 27 mEq/L (21-27); ABG Oxygen Saturation 91 % (95-98); ABG PCO2 60 mmHg (35-45); ABG PH 7.27 pH Units (7.32-7.45); ABG PO2 70 mmHg (85-104); ABG TCO2 29 mEq/L (20-26)
[2020-11-19 16:01] LABS: Uric Acid 9.9 mg/dL (2.3-7.6)
[2020-11-19] MEDS ORDERED: methylPREDNISolone 125 MG/2 ML VIAL IVP STA (18:00)
[2020-11-19 18:28] LABS: ABG Base Excess 1 mEq/L (-2 to 3); ABG HCO3 27 mEq/L (21-27); ABG Oxygen Saturation 93 % (95-98); ABG PCO2 56 mmHg (35-45); ABG PO2 78 mmHg (85-104); ABG TCO2 29 mEq/L (20-26); Blood Gas Pressure Support 12 cm H2O
[2020-11-19] MEDS: Ipratropium/Albuterol Neb 3 ML IH SCH ×3 (19:37→22:59)
[2020-11-20 00:28] LABS: Creatinine,Urine 143 mg/dL
[2020-11-20 01:26] LABS: Protein/Creatinine Ratio,Urine 0.75 mg/mg (0.00-0.20)
[2020-11-20] MEDS: MethylPREDNISolone 40 MG/ML VIAL IVP SCH ×2 (01:39→08:19)
[2020-11-20] MEDS: DilTIAZem 50 MG in 0.9 % Sodium Chloride 40 ML IVC SCH ×3 (01:39→10:10)
[2020-11-20 01:58] LABS: Basophils % 0.2 %; Hematocrit 26.9 % (35.3-44.9); Hemoglobin 8.1 g/dL (11.5-15.4); Immature Granulocytes % 1.9 % (0-4); Lymphocytes # 0.4 K/mcL (0.6-4.6); Lymphocytes % 3.4 %; Mean Corpuscular HGB Conc 30.1 g/dL (31.6-35.5); Mean Corpuscular Hemoglobin 27.3 pg (28.0-33.3); Mean Corpuscular Volume 90.6 fL (83.0-100.0); Mean Platelet Volume 12.1 fL (9.4-12.4); Monocytes # 0.1 K/mcL (0.0-1.3); Monocytes % 1.2 %; Neutrophils # 10.7 K/mcL (1.6-8.9); Platelet Count 145 K/mcL (140-400); Red Blood Count 2.97 M/mcL (3.82-4.97); Red Cell Distribution Width 13.5 % (11.5-14.5); Segmented Neutrophils % 93.3 %; White Blood Count 11.5 K/mcL (4.3-11.1)
[2020-11-20 02:17] LABS: % Iron Saturation 10 % (15-50); Iron 30 mcg/dL (50-170); Transferrin 220 mg/dL (203-362)
[2020-11-20 02:18] LABS: Calcium 8.6 mg/dL (8.6-10.3); Potassium 5.7 mEq/L (3.5-5.1)
[2020-11-20 02:53] LABS: Folate > 22.3 ng/mL (3.0-16.0); Vitamin B12 694 pg/mL (250-1100)
[2020-11-20] MEDS: Ipratropium/Albuterol Neb 3 ML IH SCH ×6 (03:19→23:41)
[2020-11-20] MEDS: Acetaminophen 325 MG TABLET PO PRN ×2 (05:37→15:07)
[2020-11-20] MEDS ORDERED: Calcium Gluconate 2,000 MG in D5% in Water 100 ML IVPB ONE (07:38)
[2020-11-20] MEDS: carvediloL 25 MG TABLET PO SCH ×2 (08:18→17:38)
[2020-11-20] MEDS: Aspirin Enteric Coated 81 MG Tablet PO SCH (08:18)
[2020-11-20] MEDS: Isosorbide MONOnitrate (24 HR) 30 MG TAB.ER.24H PO SCH (08:18)
[2020-11-20] MEDS: Insulin LISPRO 300 UNITS/3 ML VIAL SUBQ SCH ×2 (08:21→13:04)
[2020-11-20 09:55] LABS: Hemoglobin 8.3 g/dL (11.5-15.4)
[2020-11-20 09:57] LABS: Hematocrit 27.4 % (35.3-44.9)
[2020-11-20 10:18] LABS: Calcium 8.6 mg/dL (8.6-10.3); Potassium 5.6 mEq/L (3.5-5.1)
[2020-11-20] MEDS ORDERED: Insulin DETEMIR 100 UNIT/ML X5UNITS SUBQ STA (12:42)
[2020-11-20] MEDS ORDERED: INSULIN HUMAN REGULAR IV STA (12:47)
[2020-11-20] MEDS ORDERED: SODIUM CHLORIDE 0.9% IV STA (12:47)
[2020-11-20] MEDS: Insulin DETEMIR 100 UNIT/ML X5UNITS SUBQ SCH ×2 (13:23→20:34)
[2020-11-20] MEDS: cefTRIAXone 2,000 MG in Water for inj. (sterile) 20 ML IVP SCH (13:23)
[2020-11-20] MEDS: Azithromycin 500 MG in 0.9 % Sodium Chloride 250 ML IVPB SCH (13:23)
[2020-11-20] MEDS: SODIUM ZIRCONIUM CYCLOSILICATE 5 GM POWD.PACK PO SCH (14:59)
[2020-11-20] MEDS ORDERED: 0.9 % Sodium Chloride 500 ML IVC ONE (16:25)
[2020-11-20] MEDS: Pantoprazole 40 MG VIAL IVP SCH (17:39)
[2020-11-20] MEDS ORDERED: MethylPREDNISolone 40 MG/ML VIAL IVP SCH (21:00)
[2020-11-21] MEDS: Ipratropium/Albuterol Neb 3 ML IH SCH ×4 (04:16→15:55)
[2020-11-21 04:47] LABS: Influenza A PCR Body Fluid NOT DETECTED; Influenza B PCR Body Fluid NOT DETECTED; RVP Body Fluid Source BAL
[2020-11-21 07:18] LABS: Basophils % 0.1 %; Hematocrit 26.6 % (35.3-44.9); Red Cell Distribution Width 13.5 % (11.5-14.5)
[2020-11-21 07:20] LABS: Hemoglobin 8.2 g/dL (11.5-15.4); Immature Granulocytes % 2.4 % (0-4); Immature Platelets 2.8 % (1.1-6.1); Lymphocytes # 0.4 K/mcL (0.6-4.6); Lymphocytes % 3.1 %; Mean Corpuscular HGB Conc 30.8 g/dL (31.6-35.5); Mean Corpuscular Hemoglobin 27.2 pg (28.0-33.3); Mean Corpuscular Volume 88.1 fL (83.0-100.0); Mean Platelet Volume 12.7 fL (9.4-12.4); Monocytes # 0.7 K/mcL (0.0-1.3); Monocytes % 5.2 %; Platelet Count 225 K/mcL (140-400); Red Blood Count 3.02 M/mcL (3.82-4.97); Segmented Neutrophils % 89.2 %; White Blood Count 13.5 K/mcL (4.3-11.1)
[2020-11-21] MEDS: carvediloL 25 MG TABLET PO SCH ×2 (07:57→16:18)
[2020-11-21] MEDS: Aspirin Enteric Coated 81 MG Tablet PO SCH (07:57)
[2020-11-21] MEDS: Isosorbide MONOnitrate (24 HR) 30 MG TAB.ER.24H PO SCH (07:57)
[2020-11-21] MEDS: SODIUM ZIRCONIUM CYCLOSILICATE 5 GM POWD.PACK PO SCH (07:57)
[2020-11-21] MEDS: Pantoprazole 40 MG VIAL IVP SCH ×2 (07:57→16:18)
[2020-11-21] MEDS: Insulin DETEMIR 100 UNIT/ML X5UNITS SUBQ SCH (08:07)
[2020-11-21 08:48] LABS: Calcium 8.4 mg/dL (8.6-10.3); Potassium 4.1 mEq/L (3.5-5.1)
[2020-11-21 12:05] VITALS: BP 146/91
[2020-11-21 12:14] LABS: RSV PCR Body Fluid NOT DETECTED
[2020-11-21] MEDS: cefTRIAXone 2,000 MG in Water for inj. (sterile) 20 ML IVP SCH (13:03)
[2020-11-21] MEDS: Insulin LISPRO 300 UNITS/3 ML VIAL SUBQ SCH ×2 (13:03→16:18)
[2020-11-21] MEDS: Azithromycin 500 MG in 0.9 % Sodium Chloride 250 ML IVPB SCH (13:04)
[2020-11-21] MEDS ORDERED: Insulin LISPRO 300 UNITS/3 ML VIAL SUBQ SCH (21:00)
== END 2020-11-21 17:42 | disposition home or self-care (01) | DRG 291 ==
LOC: EMEROOARM 17:10 → 3ANU 17:10 → SUATTDRO 22:17 → 3ANU 22:43 → 2NENU 11-19 20:24
PROVIDERS: ADMIT Internal Medicine; ATTEND Student in an Organized Health Care Education/Training Program

== ENCOUNTER 2021-03-23 08:36 | Inpatient (IN) ==
[~2021-03-23 08:36] MED LIST: 0.9 % Sodium Chloride 1,000 ML ONE
[2021-03-23] MEDS ORDERED: Ondansetron 4 MG/2 ML VIAL IVP PRN (09:36)
[2021-03-23] MEDS ORDERED: Ringers Solution, Lactated 1,000 ML IVC SCH (09:45)
[2021-03-23] MEDS ORDERED: Protamine Sulfate 50 MG/5 ML VIAL IVP ONE (10:36)
[2021-03-23] MEDS ORDERED: *HR* Heparin 10,000 UNIT/10 ML VIAL ONE ×2 (10:36→10:39)
[2021-03-23] MEDS ORDERED: Heparin 1,000 UNITS/500 mL 1,500 ML ONE (10:37)
[2021-03-23] MEDS ORDERED: 0.9 % Sodium Chloride 1,000 ML ONE (10:37)
[2021-03-23] MEDS ORDERED: *HR* FentaNYL (PF) 100 MCG/2 ML VIAL ONE (10:53)
[2021-03-23] MEDS ORDERED: Perflutren Lipid Microsphere 1.3 ML in 0.9 % Sodium Chloride 8.7 ML IVP PRN (12:47)
[2021-03-23] MEDS ORDERED: Nitroglycerin 0.4 MG TAB.SUBL SL PRN (12:48)
[2021-03-23] MEDS ORDERED: *HR* Dextrose 50 % in Water (Vial) 50 ML VIAL IVP PRN (12:52)
[2021-03-23] MEDS ORDERED: Dextrose Gel 15 GM/37.5 ML TUBE PO PRN ×2 (12:52)
[2021-03-23] MEDS ORDERED: D5% in Water 1,000 ML IVC PRN (12:52)
[2021-03-23] MEDS: Insulin LISPRO 300 UNITS/3 ML VIAL SUBQ SCH (16:02)
[2021-03-23] MEDS: Furosemide 20 MG TABLET PO SCH (17:09)
[2021-03-23] MEDS ORDERED: *HR* Acetaminophen w/Cod 300-30 mg 1 TAB TABLET PO PRN (18:54)
[2021-03-23] MEDS: Apixaban 5 MG TABLET PO SCH (20:52)
[2021-03-23] MEDS: Metoprolol XL (24 HR) Succ 25 MG TAB.ER.24H PO SCH (20:53)
[2021-03-23] MEDS ORDERED: Famotidine 20 MG TABLET PO SCH ×2 (21:00)
[2021-03-24 02:42] LABS: Basophils # 0.1 K/mcL (0.0-0.2); Basophils % 0.4 %; Eosinophils % 0.1 %; Hematocrit 29.1 % (35.3-44.9); Immature Granulocytes % 1.8 % (0-4); Lymphocytes # 0.4 K/mcL (0.6-4.6); Lymphocytes % 3.5 %; Mean Corpuscular HGB Conc 30.9 g/dL (31.6-35.5); Mean Corpuscular Hemoglobin 26.6 pg (28.0-33.3); Mean Corpuscular Volume 86.1 fL (83.0-100.0); Mean Platelet Volume 12.4 fL (9.4-12.4); Monocytes # 0.4 K/mcL (0.0-1.3); Monocytes % 3.1 %; Neutrophils # 10.7 K/mcL (1.6-8.9); Platelet Count 191 K/mcL (140-400); Red Blood Count 3.38 M/mcL (3.82-4.97); Red Cell Distribution Width 13.6 % (11.5-14.5); Segmented Neutrophils % 91.1 %; White Blood Count 11.8 K/mcL (4.3-11.1)
[2021-03-24 02:46] LABS: INR 1.2; Prothrombin Time 13.7 Seconds (9.4-12.1)
[2021-03-24 03:07] LABS: Calcium 8.6 mg/dL (8.6-10.3); Potassium 5.5 mEq/L (3.5-5.1)
[2021-03-24] MEDS: Insulin LISPRO 300 UNITS/3 ML VIAL SUBQ SCH ×2 (07:48→12:02)
[2021-03-24] MEDS: Apixaban 5 MG TABLET PO SCH (07:48)
[2021-03-24] MEDS: Furosemide 20 MG TABLET PO SCH (07:48)
[2021-03-24] MEDS: Metoprolol XL (24 HR) Succ 25 MG TAB.ER.24H PO SCH (07:48)
[2021-03-24] MEDS ORDERED: NON-FORMULARY MEDICATION 1 EACH EACH (Omega-3 Fatty Acids [Fish Oil] 300 MG Capsule) PO SCH (09:00)
[2021-03-24] MEDS ORDERED: Isosorbide MONOnitrate (24 HR) 30 MG TAB.ER.24H PO SCH (09:00)
[2021-03-24] MEDS ORDERED: Aspirin Enteric Coated 81 MG Tablet PO SCH (09:00)
[2021-03-24] MEDS ORDERED: Multivit/Ca/Min/Fe/FA 1 TAB TABLET PO SCH (09:00)
[2021-03-24 10:22] LABS: Calcium 8.6 mg/dL (8.6-10.3); Potassium 4.7 mEq/L (3.5-5.1)
[2021-03-24 10:38] VITALS: BP 103/69; PULSE 64; TEMP 97.9; O2SAT 92
== END 2021-03-24 13:34 | disposition home or self-care (01) | DRG 274 ==
LOC: INVDIALAB 08:36 → 2NENU 14:13
PROVIDERS: ADMIT Internal Medicine Clinical Cardiac Electrophysiology; ATTEND Internal Medicine Clinical Cardiac Electrophysiology

== ENCOUNTER 2021-12-05 21:47 | Observation (INO) ==
[2021-12-05] MEDS ORDERED: Isovue-370 500 ML BOTTLE IVP ONE (23:53)
[2021-12-06 00:33] LABS: Basophils % 0.4 %; Eosinophils # 0.3 K/mcL (0.0-0.6); Eosinophils % 3.5 %; Hematocrit 25.9 % (35.3-44.9); Hemoglobin 7.7 g/dL (11.5-15.4); Immature Granulocytes % 1.2 % (0-4); Lymphocytes # 0.6 K/mcL (0.6-4.6); Mean Corpuscular HGB Conc 29.7 g/dL (31.6-35.5); Mean Corpuscular Hemoglobin 26.2 pg (28.0-33.3); Mean Corpuscular Volume 88.1 fL (83.0-100.0); Mean Platelet Volume 12.9 fL (9.4-12.4); Monocytes # 0.4 K/mcL (0.0-1.3); Monocytes % 4.6 %; Neutrophils # 6.4 K/mcL (1.6-8.9); Platelet Count 166 K/mcL (140-400); Red Blood Count 2.94 M/mcL (3.82-4.97); Red Cell Distribution Width 14.5 % (11.5-14.5); Segmented Neutrophils % 82.3 %; White Blood Count 7.8 K/mcL (4.3-11.1)
[2021-12-06 00:43] LABS: Activated Partial Thrombo Time 30.8 Seconds (26.0-36.0)
[2021-12-06 01:54] LABS: Calcium 8.7 mg/dL (8.6-10.3); Potassium 4.8 mEq/L (3.5-5.1)
[2021-12-06 02:03] LABS: Troponin I 0.1 ng/mL (< 0.04)
[2021-12-06 02:12] LABS: Bacteria,Urine Few per hpf (None-Few); Bilirubin,Urine Negative (Negative); Blood,Urine Negative (Negative); Clarity,Urine Clear (Clear); Color,Urine Light-Yellow (Yellow); Glucose,Urine (UA) Normal (Normal); Hyaline Casts,Urine Few per lpf (None Seen); Ketones,Urine Negative (Negative); Leukocyte Esterase,Urine Negative (Negative); Mucus,Urine Few per lpf (None-Few); Nitrite,Urine Negative (Negative); PH,Urine 5.5 pH Units (5.0-8.0); Protein,Urine 50 mg/dL (Neg-Trace); RBC,Urine 0-3 per hpf (0-3); Specific Gravity,Urine 1.013 (1.010-1.025); Squamous Epithelial Cell,Urine Few per hpf (None-Few); Urobilinogen,Urine Normal (Normal); WBC,Urine 0-3 per hpf (0-3)
[2021-12-06] MEDS ORDERED: Acetaminophen 325 MG TABLET PO ONE (02:30)
[2021-12-06] MEDS ORDERED: Melatonin 3 MG TABLET PO PRN (05:10)
[2021-12-06] MEDS ORDERED: Naloxone 0.4 MG/ML INJ IVP PRN (05:10)
[2021-12-06] MEDS ORDERED: *HR* Dextrose 50 % in Water (Syg) 50 ML SYRINGE IVP PRN (05:19)
[2021-12-06] MEDS ORDERED: D5% in Water 1,000 ML IVC PRN (05:19)
[2021-12-06] MEDS ORDERED: Dextrose 4 GM Chewable Tablets PO PRN ×2 (05:19)
[2021-12-06] MEDS ORDERED: Aspirin 325 MG TABLET PO ONE (05:30)
[2021-12-06 06:16] LABS: Hemoglobin 8.3 g/dL (11.5-15.4); Mean Corpuscular HGB Conc 30.7 g/dL (31.6-35.5); Mean Corpuscular Hemoglobin 26.5 pg (28.0-33.3); Mean Corpuscular Volume 86.3 fL (83.0-100.0); Mean Platelet Volume 11.8 fL (9.4-12.4); Platelet Count 156 K/mcL (140-400); Red Blood Count 3.13 M/mcL (3.82-4.97); Red Cell Distribution Width 14.6 % (11.5-14.5); White Blood Count 9.2 K/mcL (4.3-11.1)
[2021-12-06] MEDS ORDERED: Perflutren Lipid Microsphere 1.3 ML in 0.9 % Sodium Chloride 8.7 ML IVP PRN (06:16)
[2021-12-06] MEDS ORDERED: *HR* OxyCODONE/APAP 5/325 TABLET PO PRN (06:23)
[2021-12-06 06:48] LABS: VBG HCO3 22 mEq/L (21-27); VBG PCO2 39 mmHg (41-51); VBG PH 7.36 pH Units (7.32-7.42); VBG PO2 149 mmHg (25-50)
[2021-12-06 06:52] LABS: Albumin 3.5 g/dL (3.5-5.7); Albumin/Globulin Ratio 1.4 (1.1-2.2); Bilirubin,Direct 0.1 mg/dL (0.0-0.2); Bilirubin,Indirect 0.1 mg/dL (0.0-1.0); Bilirubin,Total 0.2 mg/dL (0.3-1.0); Globulin 2.5 g/dL (2.4-3.5)
[2021-12-06 06:55] LABS: Alanine Aminotransferase 16 Units/L (7-52); Albumin 3.7 g/dL (3.5-5.7); Albumin/Globulin Ratio 1.2 (1.1-2.2); Alkaline Phosphatase 103 Units/L (34-104); Aspartate Amino Transferase 13 Units/L (13-39); BUN/Creatinine Ratio 42 (6-26); Bilirubin,Total 0.2 mg/dL (0.3-1.0); Blood Urea Nitrogen 82 mg/dL (8-23); Calcium 9.2 mg/dL (8.6-10.3); Carbon Dioxide 23 mEq/L (23-29); Chloride 104 mEq/L (98-107); Globulin 3.1 g/dL (2.4-3.5); Glucose 91 mg/dL (70-105); Osmolality,Calculated 310 (280-300); Potassium 4.6 mEq/L (3.5-5.1); Sodium 138 mEq/L (136-145); Total Protein 6.8 g/dL (6.4-8.9); Troponin I < 0.03 ng/mL (< 0.04); eGFR For African Americans 30 (> 60); eGFR For Non-African Americans 25 (> 60)
[2021-12-06] MEDS: Insulin LISPRO 300 UNITS/3 ML VIAL SUBQ SCH ×2 (07:50→13:15)
[2021-12-06] MEDS ORDERED: Insulin DETEMIR 100 UNIT/ML X5UNITS SUBQ SCH (09:00)
[2021-12-06] MEDS ORDERED: Famotidine 20 MG TABLET PO SCH (09:00)
[2021-12-06 11:48] VITALS: BP 172/68; PULSE 63; TEMP 97.5; O2SAT 92
[2021-12-06] MEDS ORDERED: Insulin LISPRO 300 UNITS/3 ML VIAL SUBQ SCH (21:00)
[2021-12-07] MEDS ORDERED: Famotidine 20 MG TABLET PO SCH (09:00)
== END 2021-12-06 15:18 | disposition home or self-care (01) ==
LOC: 2ANU 21:47 → EMEROOARM 21:47 → SUATTDRO 12-06 05:18 → 2ANU 12-06 05:48
PROVIDERS: ADMIT Internal Medicine; ATTEND Family Medicine

== ENCOUNTER 2021-12-16 12:46 | Inpatient (IN) ==
[2021-12-16 13:34] LABS: Basophils % 0.8 %; Mean Corpuscular Hemoglobin 26.1 pg (28.0-33.3); Monocytes % 6.3 %; Red Cell Distribution Width 14.6 % (11.5-14.5)
[2021-12-16 13:36] LABS: Basophils # 0.1 K/mcL (0.0-0.2); Eosinophils # 0.2 K/mcL (0.0-0.6); Eosinophils % 2.3 %; Hematocrit 26.2 % (35.3-44.9); Immature Granulocytes % 4.1 % (0-4); Immature Platelets 2.8 % (1.1-6.1); Lymphocytes # 0.7 K/mcL (0.6-4.6); Lymphocytes % 6.9 %; Mean Corpuscular HGB Conc 30.5 g/dL (31.6-35.5); Mean Corpuscular Volume 85.6 fL (83.0-100.0); Monocytes # 0.7 K/mcL (0.0-1.3); Neutrophils # 8.3 K/mcL (1.6-8.9); Platelet Count 307 K/mcL (140-400); Red Blood Count 3.06 M/mcL (3.82-4.97); Segmented Neutrophils % 79.6 %; White Blood Count 10.4 K/mcL (4.3-11.1)
[2021-12-16 13:57] LABS: BUN/Creatinine Ratio 47 (6-26); Blood Urea Nitrogen 79 mg/dL (8-23); Calcium 9.2 mg/dL (8.6-10.3); Carbon Dioxide 27 mEq/L (23-29); Chloride 98 mEq/L (98-107); Glucose 262 mg/dL (70-105); Osmolality,Calculated 309 (280-300); Potassium 4.8 mEq/L (3.5-5.1); Sodium 133 mEq/L (136-145); Troponin I < 0.03 ng/mL (< 0.04); eGFR For African Americans 36 (> 60); eGFR For Non-African Americans 30 (> 60)
[2021-12-16] MEDS ORDERED: Furosemide 40 MG/4 ML VIAL IVP ONE (18:18)
[2021-12-16] MEDS ORDERED: Naloxone 0.4 MG/ML INJ IVP PRN (19:57)
[2021-12-16] MEDS ORDERED: Melatonin 3 MG TABLET PO PRN (20:13)
[2021-12-16] MEDS ORDERED: D5% in Water 1,000 ML IVC PRN (20:20)
[2021-12-16] MEDS ORDERED: Dextrose 4 GM Chewable Tablets PO PRN ×2 (20:20)
[2021-12-16] MEDS ORDERED: *HR* Dextrose 50 % in Water (Syg) 50 ML SYRINGE IVP PRN (20:20)
[2021-12-16] MEDS ORDERED: Perflutren Lipid Microsphere 1.3 ML in 0.9 % Sodium Chloride 8.7 ML IVP PRN (20:38)
[2021-12-16] MEDS: Insulin LISPRO 300 UNITS/3 ML VIAL SUBQ SCH (21:53)
[2021-12-16] MEDS: Insulin DETEMIR 100 UNIT/ML X5UNITS SUBQ SCH (21:53)
[2021-12-16 22:23] LABS: Influenza A PCR Negative (Negative); Influenza B PCR Negative (Negative); Resp. Syncytial Virus PCR Negative (Negative)
[2021-12-16 22:24] LABS: SARS-CoV-2 by PCR (In House) Negative (Negative)
[2021-12-16] MEDS: Ipratropium/Albuterol Neb 3 ML IH SCH (22:34)
[2021-12-17 03:33] LABS: Basophils # 0.1 K/mcL (0.0-0.2); Basophils % 0.7 %; Eosinophils # 0.2 K/mcL (0.0-0.6); Eosinophils % 2.4 %; Hematocrit 25.3 % (35.3-44.9); Hemoglobin 7.8 g/dL (11.5-15.4); Immature Granulocytes % 4.7 % (0-4); Lymphocytes # 0.6 K/mcL (0.6-4.6); Lymphocytes % 7.5 %; Mean Corpuscular HGB Conc 30.8 g/dL (31.6-35.5); Mean Corpuscular Hemoglobin 26.2 pg (28.0-33.3); Mean Corpuscular Volume 84.9 fL (83.0-100.0); Mean Platelet Volume 12.8 fL (9.4-12.4); Monocytes # 0.6 K/mcL (0.0-1.3); Monocytes % 7.7 %; Neutrophils # 6.4 K/mcL (1.6-8.9); Platelet Count 214 K/mcL (140-400); Red Blood Count 2.98 M/mcL (3.82-4.97); Red Cell Distribution Width 14.5 % (11.5-14.5); White Blood Count 8.4 K/mcL (4.3-11.1)
[2021-12-17 03:53] LABS: Albumin 3.4 g/dL (3.5-5.7); Albumin/Globulin Ratio 1.4 (1.1-2.2); Bilirubin,Total 0.3 mg/dL (0.3-1.0); Calcium 8.9 mg/dL (8.6-10.3); Globulin 2.5 g/dL (2.4-3.5); Magnesium 2.1 mg/dL (1.6-2.6); Phosphorous 5.2 mg/dL (2.7-4.5); Potassium 5.1 mEq/L (3.5-5.1); Total Protein 5.9 g/dL (6.4-8.9)
[2021-12-17] MEDS: Ipratropium/Albuterol Neb 3 ML IH SCH ×4 (04:01→20:06)
[2021-12-17] MEDS ORDERED: *HR* Heparin 5,000 UNIT/ML VIAL SQ SCH (06:00)
[2021-12-17] MEDS: Furosemide 40 MG/4 ML VIAL IVP SCH ×2 (07:56→16:11)
[2021-12-17] MEDS: Aspirin 81 MG TAB.CHEW PO SCH (07:56)
[2021-12-17] MEDS: Insulin LISPRO 300 UNITS/3 ML VIAL SUBQ SCH ×4 (07:57→22:13)
[2021-12-17] MEDS: Insulin DETEMIR 100 UNIT/ML X5UNITS SUBQ SCH ×2 (07:59→22:14)
[2021-12-17] MEDS ORDERED: Fluticasone Propionate Nasal 50 MCG/SPRAY BOTTLE NS PRN (11:21)
[2021-12-17] MEDS: Gabapentin 300 MG CAPSULE PO SCH ×3 (12:16→22:16)
[2021-12-17] MEDS: *HR* Heparin 5,000 UNIT/ML VIAL SQ SCH ×2 (16:10→22:15)
[2021-12-17] MEDS: Metoprolol XL (24 HR) Succ 25 MG TAB.ER.24H PO SCH (22:15)
[2021-12-17] MEDS: MethylPREDNISolone 40 MG/ML VIAL IVP SCH (22:15)
[2021-12-18 02:01] LABS: Hematocrit 28.5 % (35.3-44.9); Red Cell Distribution Width 14.5 % (11.5-14.5)
[2021-12-18 02:02] LABS: Basophils # 0.1 K/mcL (0.0-0.2); Basophils % 0.7 %; Eosinophils # 0.1 K/mcL (0.0-0.6); Eosinophils % 0.8 %; Hemoglobin 8.8 g/dL (11.5-15.4); Immature Platelets 2.3 % (1.1-6.1); Lymphocytes # 0.3 K/mcL (0.6-4.6); Lymphocytes % 3.4 %; Mean Corpuscular HGB Conc 30.9 g/dL (31.6-35.5); Mean Corpuscular Hemoglobin 26.3 pg (28.0-33.3); Mean Corpuscular Volume 85.3 fL (83.0-100.0); Mean Platelet Volume 13.4 fL (9.4-12.4); Monocytes # 0.3 K/mcL (0.0-1.3); Monocytes % 2.5 %; Neutrophils # 8.9 K/mcL (1.6-8.9); Platelet Count 323 K/mcL (140-400); Red Blood Count 3.34 M/mcL (3.82-4.97); Segmented Neutrophils % 88.6 %
[2021-12-18 02:07] LABS: Calcium 9.5 mg/dL (8.6-10.3); Magnesium 2.1 mg/dL (1.6-2.6); Potassium 5.5 mEq/L (3.5-5.1)
[2021-12-18 02:20] LABS: Thyroid Stimulating Hormone 4.597 mcIU/mL (0.340-5.600)
[2021-12-18 02:49] LABS: Folate > 22.3 ng/mL (3.0-16.0); Vitamin B12 1148 pg/mL (250-1100)
[2021-12-18] MEDS: Ipratropium/Albuterol Neb 3 ML IH SCH ×4 (04:07→19:51)
[2021-12-18] MEDS: MethylPREDNISolone 40 MG/ML VIAL IVP SCH ×3 (05:04→21:36)
[2021-12-18] MEDS: *HR* Heparin 5,000 UNIT/ML VIAL SQ SCH ×3 (05:04→21:36)
[2021-12-18] MEDS: Gabapentin 300 MG CAPSULE PO SCH ×3 (07:32→21:36)
[2021-12-18] MEDS: Aspirin 81 MG TAB.CHEW PO SCH (07:33)
[2021-12-18] MEDS: Metoprolol XL (24 HR) Succ 25 MG TAB.ER.24H PO SCH ×2 (07:33→21:36)
[2021-12-18] MEDS: Furosemide 40 MG/4 ML VIAL IVP SCH ×2 (07:33→16:05)
[2021-12-18] MEDS: Insulin LISPRO 300 UNITS/3 ML VIAL SUBQ SCH ×4 (07:34→21:42)
[2021-12-18] MEDS ORDERED: Iron Sucrose Complex 400 MG in 0.9 % Sodium Chloride 250 ML IVPB ONE (07:37)
[2021-12-18] MEDS: Isosorbide MONOnitrate (24 HR) 60 MG TAB.ER.24H PO SCH (07:40)
[2021-12-18] MEDS: Cholecalciferol (D-3) 1,000 UNIT (25MCG) TABLET PO SCH (07:40)
[2021-12-18] MEDS: Multivit/Ca/Min/Fe/FA 1 TAB TABLET PO SCH (07:40)
[2021-12-18] MEDS: Insulin DETEMIR 100 UNIT/ML X5UNITS SUBQ SCH (07:40)
[2021-12-18] MEDS ORDERED: NON-FORMULARY MEDICATION 1 EACH EACH (Omega-3/Dha/Epa/Fish Oil [Fish Oil 1,000 Mg Softgel] PO SCH (09:00)
[2021-12-18] MEDS ORDERED: Insulin LISPRO 300 UNITS/3 ML VIAL SUBQ ONE ×2 (12:02→13:19)
[2021-12-18] MEDS ORDERED: Insulin DETEMIR 100 UNIT/ML X5UNITS SUBQ ONE (13:19)
[2021-12-18] MEDS ORDERED: Insulin DETEMIR 100 UNIT/ML X5UNITS SUBQ SCH (21:00)
[2021-12-19 01:47] LABS: Basophils % 0.1 %; Hematocrit 26.4 % (35.3-44.9); Hemoglobin 8.2 g/dL (11.5-15.4); Immature Granulocytes % 2.8 % (0-4); Immature Platelets 2.1 % (1.1-6.1); Lymphocytes # 0.2 K/mcL (0.6-4.6); Lymphocytes % 2.3 %; Mean Corpuscular HGB Conc 31.1 g/dL (31.6-35.5); Mean Corpuscular Hemoglobin 26.1 pg (28.0-33.3); Mean Corpuscular Volume 84.1 fL (83.0-100.0); Mean Platelet Volume 13.5 fL (9.4-12.4); Monocytes # 0.4 K/mcL (0.0-1.3); Monocytes % 4.3 %; Neutrophils # 8.5 K/mcL (1.6-8.9); Platelet Count 357 K/mcL (140-400); Red Blood Count 3.14 M/mcL (3.82-4.97); Red Cell Distribution Width 14.4 % (11.5-14.5); Segmented Neutrophils % 90.5 %; White Blood Count 9.4 K/mcL (4.3-11.1)
[2021-12-19 02:12] LABS: Calcium 9.2 mg/dL (8.6-10.3); Potassium 5.1 mEq/L (3.5-5.1)
[2021-12-19] MEDS: Ipratropium/Albuterol Neb 3 ML IH SCH ×4 (03:47→19:32)
[2021-12-19] MEDS: *HR* Heparin 5,000 UNIT/ML VIAL SQ SCH ×3 (06:48→20:35)
[2021-12-19] MEDS: MethylPREDNISolone 40 MG/ML VIAL IVP SCH ×3 (06:48→20:44)
[2021-12-19] MEDS: Insulin LISPRO 300 UNITS/3 ML VIAL SUBQ SCH ×4 (07:55→20:43)
[2021-12-19] MEDS: Metoprolol XL (24 HR) Succ 25 MG TAB.ER.24H PO SCH ×2 (07:56→20:35)
[2021-12-19] MEDS: Gabapentin 300 MG CAPSULE PO SCH ×3 (07:56→20:35)
[2021-12-19] MEDS: Multivit/Ca/Min/Fe/FA 1 TAB TABLET PO SCH (07:56)
[2021-12-19] MEDS: Furosemide 40 MG/4 ML VIAL IVP SCH ×2 (07:56→17:43)
[2021-12-19] MEDS: Isosorbide MONOnitrate (24 HR) 60 MG TAB.ER.24H PO SCH (07:56)
[2021-12-19] MEDS: Aspirin 81 MG TAB.CHEW PO SCH (07:56)
[2021-12-19] MEDS: Cholecalciferol (D-3) 1,000 UNIT (25MCG) TABLET PO SCH (07:56)
[2021-12-19] MEDS: Insulin DETEMIR 100 UNIT/ML X5UNITS SUBQ SCH ×2 (08:22→20:49)
[2021-12-19] MEDS ORDERED: Insulin LISPRO 300 UNITS/3 ML VIAL SUBQ ONE (08:29)
[2021-12-20] MEDS: Ipratropium/Albuterol Neb 3 ML IH SCH ×4 (03:50→20:09)
[2021-12-20] MEDS: *HR* Heparin 5,000 UNIT/ML VIAL SQ SCH ×3 (06:05→22:42)
[2021-12-20 07:29] LABS: Basophils % 0.2 %; Hematocrit 26.7 % (35.3-44.9); Hemoglobin 8.1 g/dL (11.5-15.4); Immature Granulocytes % 1.5 % (0-4); Lymphocytes # 0.2 K/mcL (0.6-4.6); Lymphocytes % 1.7 %; Mean Corpuscular HGB Conc 30.3 g/dL (31.6-35.5); Mean Corpuscular Hemoglobin 25.8 pg (28.0-33.3); Mean Platelet Volume 13.2 fL (9.4-12.4); Monocytes # 0.6 K/mcL (0.0-1.3); Neutrophils # 13.3 K/mcL (1.6-8.9); Platelet Count 164 K/mcL (140-400); Red Blood Count 3.14 M/mcL (3.82-4.97); Red Cell Distribution Width 14.6 % (11.5-14.5); Segmented Neutrophils % 92.6 %
[2021-12-20 07:30] LABS: White Blood Count 14.4 K/mcL (4.3-11.1)
[2021-12-20] MEDS: Gabapentin 300 MG CAPSULE PO SCH ×2 (08:06→14:06)
[2021-12-20] MEDS: Cholecalciferol (D-3) 1,000 UNIT (25MCG) TABLET PO SCH (08:06)
[2021-12-20] MEDS: Metoprolol XL (24 HR) Succ 25 MG TAB.ER.24H PO SCH (08:06)
[2021-12-20] MEDS: Multivit/Ca/Min/Fe/FA 1 TAB TABLET PO SCH (08:07)
[2021-12-20] MEDS: Insulin LISPRO 300 UNITS/3 ML VIAL SUBQ SCH ×4 (08:07→22:56)
[2021-12-20] MEDS: Insulin DETEMIR 100 UNIT/ML X5UNITS SUBQ SCH ×2 (08:07→22:43)
[2021-12-20] MEDS: Aspirin 81 MG TAB.CHEW PO SCH (08:07)
[2021-12-20] MEDS: Isosorbide MONOnitrate (24 HR) 60 MG TAB.ER.24H PO SCH (08:07)
[2021-12-20] MEDS: MethylPREDNISolone 40 MG/ML VIAL IVP SCH (08:08)
[2021-12-20] MEDS: Furosemide 40 MG/4 ML VIAL IVP SCH ×2 (08:08→17:04)
[2021-12-20] MEDS ORDERED: Insulin LISPRO 300 UNITS/3 ML VIAL SUBQ STA ×2 (08:13→17:15)
[2021-12-20] MEDS ORDERED: MethylPREDNISolone 40 MG/ML VIAL IVP SCH (09:00)
[2021-12-20 09:14] LABS: Calcium 8.9 mg/dL (8.6-10.3)
[2021-12-20] MEDS: Benzonatate 100 MG CAPSULE PO PRN ×2 (14:39→22:57)
[2021-12-20] MEDS ORDERED: Insulin DETEMIR 100 UNIT/ML X5UNITS SUBQ SCH (21:00)
[2021-12-21] MEDS: Gabapentin 300 MG CAPSULE PO SCH ×4 (00:21→19:49)
[2021-12-21] MEDS: Metoprolol XL (24 HR) Succ 25 MG TAB.ER.24H PO SCH ×3 (00:21→19:51)
[2021-12-21] MEDS: Ipratropium/Albuterol Neb 3 ML IH SCH ×4 (03:37→20:54)
[2021-12-21] MEDS: *HR* Heparin 5,000 UNIT/ML VIAL SQ SCH ×3 (06:14→19:49)
[2021-12-21] MEDS: Multivit/Ca/Min/Fe/FA 1 TAB TABLET PO SCH (08:08)
[2021-12-21] MEDS: Aspirin 81 MG TAB.CHEW PO SCH (08:08)
[2021-12-21] MEDS: Isosorbide MONOnitrate (24 HR) 60 MG TAB.ER.24H PO SCH (08:08)
[2021-12-21] MEDS: Cholecalciferol (D-3) 1,000 UNIT (25MCG) TABLET PO SCH (08:09)
[2021-12-21] MEDS: Furosemide 40 MG/4 ML VIAL IVP SCH (08:09)
[2021-12-21] MEDS: Insulin LISPRO 300 UNITS/3 ML VIAL SUBQ SCH ×5 (08:10→19:50)
[2021-12-21] MEDS ORDERED: MethylPREDNISolone 40 MG/ML VIAL IVP SCH (09:00)
[2021-12-21 09:54] LABS: Basophils % 0.1 %; Eosinophils # 0.1 K/mcL (0.0-0.6); Eosinophils % 0.4 %; Hemoglobin 8.4 g/dL (11.5-15.4); Immature Granulocytes % 1.2 % (0-4); Immature Platelets 2.6 % (1.1-6.1); Lymphocytes # 0.6 K/mcL (0.6-4.6); Lymphocytes % 4.9 %; Mean Corpuscular Hemoglobin 25.8 pg (28.0-33.3); Mean Corpuscular Volume 85.9 fL (83.0-100.0); Mean Platelet Volume 13.3 fL (9.4-12.4); Monocytes # 0.8 K/mcL (0.0-1.3); Monocytes % 6.8 %; Neutrophils # 10.5 K/mcL (1.6-8.9); Platelet Count 333 K/mcL (140-400); Red Blood Count 3.26 M/mcL (3.82-4.97); Red Cell Distribution Width 14.4 % (11.5-14.5); Segmented Neutrophils % 86.6 %; White Blood Count 12.2 K/mcL (4.3-11.1)
[2021-12-21 10:27] LABS: Calcium 8.9 mg/dL (8.6-10.3); Potassium 4.2 mEq/L (3.5-5.1)
[2021-12-21] MEDS: Insulin DETEMIR 100 UNIT/ML X5UNITS SUBQ SCH ×2 (13:27→19:49)
[2021-12-21] MEDS: Loratadine 10 MG TABLET PO SCH (13:27)
[2021-12-21] MEDS: Benzonatate 100 MG CAPSULE PO PRN (15:21)
[2021-12-21] MEDS ORDERED: Furosemide 20 MG/2 ML VIAL IVP SCH (17:00)
[2021-12-22 03:35] LABS: Basophils % 0.1 %; Hematocrit 28.4 % (35.3-44.9); Hemoglobin 8.8 g/dL (11.5-15.4); Immature Granulocytes % 1.8 % (0-4); Lymphocytes # 0.2 K/mcL (0.6-4.6); Mean Corpuscular Hemoglobin 26.3 pg (28.0-33.3); Mean Platelet Volume 12.9 fL (9.4-12.4); Monocytes # 1.3 K/mcL (0.0-1.3); Monocytes % 5.4 %; Neutrophils # 22.1 K/mcL (1.6-8.9); Platelet Count 238 K/mcL (140-400); Red Blood Count 3.34 M/mcL (3.82-4.97); Red Cell Distribution Width 14.7 % (11.5-14.5); Segmented Neutrophils % 91.7 %
[2021-12-22] MEDS: Ipratropium/Albuterol Neb 3 ML IH SCH ×4 (03:57→22:03)
[2021-12-22 04:00] LABS: Calcium 8.6 mg/dL (8.6-10.3); Potassium 4.6 mEq/L (3.5-5.1)
[2021-12-22 04:01] LABS: White Blood Count 24.1 K/mcL (4.3-11.1)
[2021-12-22 04:06] LABS: Platelet Estimate Normal (Normal)
[2021-12-22] MEDS ORDERED: *HR* Metoprolol 5 MG/5 ML VIAL IVP ONE (05:39)
[2021-12-22] MEDS ORDERED: Acetaminophen IV 1,000 MG/100 ML BAG IVPB ONE ×2 (05:39→17:34)
[2021-12-22] MEDS: *HR* Heparin 5,000 UNIT/ML VIAL SQ SCH ×3 (06:05→21:01)
[2021-12-22] MEDS ORDERED: 0.9 % Sodium Chloride 250 ML ONE (07:55)
[2021-12-22] MEDS ORDERED: Azithromycin 500 MG in 0.9 % Sodium Chloride 250 ML IVPB ONE (07:56)
[2021-12-22 08:14] LABS: VBG HCO3 28 mEq/L (21-27); VBG PCO2 45 mmHg (41-51); VBG PH 7.41 pH Units (7.32-7.42); VBG PO2 136 mmHg (25-50)
[2021-12-22] MEDS ORDERED: 0.9 % Sodium Chloride 250 ML IV ONE (08:18)
[2021-12-22 08:25] LABS: Bacteria,Urine Many per hpf (None-Few); Bilirubin,Urine Negative (Negative); Blood,Urine Negative (Negative); Clarity,Urine Turbid (Clear); Color,Urine Yellow (Yellow); Glucose,Urine (UA) 300 mg/dL (Normal); Ketones,Urine Negative (Negative); Leukocyte Esterase,Urine Trace (Negative); Nitrite,Urine Negative (Negative); PH,Urine 5.5 pH Units (5.0-8.0); Protein,Urine 100 mg/dL (Neg-Trace); RBC,Urine 0-3 per hpf (0-3); Specific Gravity,Urine 1.013 (1.010-1.025); Squamous Epithelial Cell,Urine Few per hpf (None-Few); Urobilinogen,Urine Normal (Normal); WBC,Urine 0-3 per hpf (0-3)
[2021-12-22] MEDS ORDERED: cefTRIAXone 2,000 MG in 0.9 % Sodium Chloride 20 ML IVP SCH (09:00)
[2021-12-22] MEDS ORDERED: cefTRIAXone 1,000 MG in 0.9 % Sodium Chloride 10 ML IVP SCH (09:00)
[2021-12-22] MEDS ORDERED: predniSONE 20 MG TABLET PO SCH (09:00)
[2021-12-22] MEDS ORDERED: cefTRIAXone 2,000 MG in 0.9 % Sodium Chloride 10 ML IVP SCH (09:00)
[2021-12-22] MEDS: Insulin LISPRO 300 UNITS/3 ML VIAL SUBQ SCH ×7 (09:12→21:05)
[2021-12-22] MEDS: Insulin DETEMIR 100 UNIT/ML X5UNITS SUBQ SCH ×2 (09:13→21:02)
[2021-12-22] MEDS: Isosorbide MONOnitrate (24 HR) 60 MG TAB.ER.24H PO SCH (09:13)
[2021-12-22] MEDS: Loratadine 10 MG TABLET PO SCH (09:13)
[2021-12-22] MEDS: Gabapentin 300 MG CAPSULE PO SCH ×3 (09:13→21:02)
[2021-12-22] MEDS: Multivit/Ca/Min/Fe/FA 1 TAB TABLET PO SCH (09:13)
[2021-12-22] MEDS: Aspirin 81 MG TAB.CHEW PO SCH (09:13)
[2021-12-22] MEDS: Cholecalciferol (D-3) 1,000 UNIT (25MCG) TABLET PO SCH (09:14)
[2021-12-22] MEDS: Metoprolol XL (24 HR) Succ 25 MG TAB.ER.24H PO SCH ×2 (09:14→21:03)
[2021-12-22] MEDS ORDERED: Albumin 25% 25gram/100mL 25 GM/100 ML IV.SOLN IVPB ONE (11:34)
[2021-12-22] MEDS ORDERED: 0.9 % Sodium Chloride 250 ML IVC ONE (11:35)
[2021-12-22] MEDS ORDERED: Vancomycin 2,000 MG/520 ML IV.SOLN IVPB ONE (12:00)
[2021-12-22] MEDS ORDERED: Cefepime HCl 2,000 MG in 0.9 % Sodium Chloride 10 ML IVP SCH (12:00)
[2021-12-22] MEDS ORDERED: Norepinephrine 4 MG/254 ML IV.SOLN IVC SCH (14:45)
[2021-12-22 15:45] LABS: Adenovirus Not Detected (Not Detect); Bordetella Pertussis Not Detected (Not Detect); Chlamydophila pneumoniae Not Detected (Not Detect); Coronavirus 229E Not Detected (Not Detect); Coronavirus HKU1 Not Detected (Not Detect); Coronavirus NL63 Not Detected (Not Detect); Coronavirus OC43 Not Detected (Not Detect); Human Metapneumovirus Not Detected (Not Detect); Human Rhinovirus/Enterovirus Not Detected (Not Detect); Influenza A Subtype 2009 H1 Not Detected (Not Detect); Influenza B Not Detected (Not Detect); Mycoplasma pneumoniae Not Detected (Not Detect); Parainfluenza Virus 1 Not Detected (Not Detect); Parainfluenza Virus 2 Not Detected (Not Detect); Parainfluenza Virus 3 Not Detected (Not Detect); Parainfluenza Virus 4 Not Detected (Not Detect); Respiratory Syncytial Virus Not Detected (Not Detect); SARS-CoV-2 Not Detected (Not Detect)
[2021-12-22] MEDS ORDERED: *HR* Metoprolol 5 MG/5 ML VIAL IVP PRN ×2 (17:33→19:50)
[2021-12-22] MEDS ORDERED: Dextrose 4 GM Chewable Tablets PO PRN ×2 (19:50)
[2021-12-22] MEDS ORDERED: Benzonatate 100 MG CAPSULE PO PRN (19:50)
[2021-12-22] MEDS ORDERED: *HR* Dextrose 50 % in Water (Syg) 50 ML SYRINGE IVP PRN (19:50)
[2021-12-22] MEDS ORDERED: Melatonin 3 MG TABLET PO PRN (19:50)
[2021-12-22] MEDS ORDERED: D5% in Water 1,000 ML IVC PRN (19:50)
[2021-12-22] MEDS ORDERED: Fluticasone Propionate Nasal 50 MCG/SPRAY BOTTLE NS PRN (19:50)
[2021-12-22] MEDS ORDERED: Naloxone 0.4 MG/ML INJ IVP PRN (19:50)
[2021-12-22] MEDS: Norepinephrine 4 MG/254 ML IV.SOLN IVC SCH (20:59)
[2021-12-23] MEDS: Ipratropium/Albuterol Neb 3 ML IH SCH ×4 (03:17→21:11)
[2021-12-23 04:11] LABS: Hematocrit 29.2 % (35.3-44.9); Hemoglobin 8.8 g/dL (11.5-15.4); Mean Corpuscular HGB Conc 30.1 g/dL (31.6-35.5); Mean Corpuscular Hemoglobin 26.2 pg (28.0-33.3); Mean Corpuscular Volume 86.9 fL (83.0-100.0); Mean Platelet Volume 13.8 fL (9.4-12.4); Platelet Count 177 K/mcL (140-400); Red Blood Count 3.36 M/mcL (3.82-4.97); Red Cell Distribution Width 15.6 % (11.5-14.5); White Blood Count 24.2 K/mcL (4.3-11.1)
[2021-12-23 04:29] LABS: Calcium 8.2 mg/dL (8.6-10.3); Potassium 5.3 mEq/L (3.5-5.1)
[2021-12-23 04:53] LABS: Lymphocytes # 0.5 K/mcL (0.6-4.6); Neutrophils # 22.8 K/mcL (1.6-8.9); Platelet Estimate Normal (Normal)
[2021-12-23 04:54] LABS: Hypochromasia Present (Not Present)
[2021-12-23] MEDS: *HR* Heparin 5,000 UNIT/ML VIAL SQ SCH ×3 (06:12→21:18)
[2021-12-23] MEDS: Aspirin 81 MG TAB.CHEW PO SCH (08:40)
[2021-12-23] MEDS: predniSONE 20 MG TABLET PO SCH (08:40)
[2021-12-23] MEDS: Cholecalciferol (D-3) 1,000 UNIT (25MCG) TABLET PO SCH (08:40)
[2021-12-23] MEDS: Gabapentin 300 MG CAPSULE PO SCH ×3 (08:41→21:18)
[2021-12-23] MEDS: Metoprolol XL (24 HR) Succ 25 MG TAB.ER.24H PO SCH ×2 (08:42→21:19)
[2021-12-23] MEDS: Loratadine 10 MG TABLET PO SCH (08:42)
[2021-12-23] MEDS: Isosorbide MONOnitrate (24 HR) 60 MG TAB.ER.24H PO SCH (08:55)
[2021-12-23] MEDS: Insulin DETEMIR 100 UNIT/ML X5UNITS SUBQ SCH ×2 (08:55→21:19)
[2021-12-23] MEDS: Furosemide 20 MG/2 ML VIAL IVP SCH ×2 (08:55→15:38)
[2021-12-23] MEDS: Insulin LISPRO 300 UNITS/3 ML VIAL SUBQ SCH ×7 (08:57→21:23)
[2021-12-23] MEDS: Multivit/Ca/Min/Fe/FA 1 TAB TABLET PO SCH (09:08)
[2021-12-23] MEDS: Albumin Human 5% 12.5 GM/250 ML IV.SOLN IVC SCH ×2 (09:43→13:42)
[2021-12-23] MEDS: Phenylephrine 20 MG in 0.9 % Sodium Chloride 250 ML IVC SCH (10:59)
[2021-12-23] MEDS ORDERED: Vancomycin 1,500 MG/265 ML IV.SOLN IVPB SCH ×2 (12:00)
[2021-12-23] MEDS: Norepinephrine 4 MG/254 ML IV.SOLN IVC SCH ×2 (12:01→14:27)
[2021-12-23] MEDS: Cefepime HCl 2,000 MG in 0.9 % Sodium Chloride 10 ML IVP SCH ×2 (12:06)
[2021-12-23] MEDS ORDERED: Vancomycin 1,500 MG/265 ML IV.SOLN IVPB ONE (15:06)
[2021-12-24] MEDS: Cefepime HCl 2,000 MG in 0.9 % Sodium Chloride 10 ML IVP SCH (00:20)
[2021-12-24] MEDS: Ipratropium/Albuterol Neb 3 ML IH SCH ×4 (03:44→19:49)
[2021-12-24 03:58] LABS: Mean Platelet Volume 13.5 fL (9.4-12.4); Red Cell Distribution Width 15.9 % (11.5-14.5)
[2021-12-24 04:00] LABS: Basophils % 0.2 %; Hematocrit 25.2 % (35.3-44.9); Hemoglobin 7.3 g/dL (11.5-15.4); Immature Granulocytes % 5.3 % (0-4); Immature Platelets 3.2 % (1.1-6.1); Lymphocytes # 0.1 K/mcL (0.6-4.6); Lymphocytes % 0.9 %; Mean Corpuscular Hemoglobin 25.5 pg (28.0-33.3); Mean Corpuscular Volume 88.1 fL (83.0-100.0); Monocytes # 0.4 K/mcL (0.0-1.3); Monocytes % 2.6 %; Platelet Count 193 K/mcL (140-400); Red Blood Count 2.86 M/mcL (3.82-4.97); White Blood Count 15.2 K/mcL (4.3-11.1)
[2021-12-24 04:13] LABS: Calcium 7.9 mg/dL (8.6-10.3); Magnesium 2.2 mg/dL (1.6-2.6); Potassium 4.9 mEq/L (3.5-5.1)
[2021-12-24 04:15] LABS: Neutrophils # 13.8 K/mcL (1.6-8.9)
[2021-12-24 04:25] LABS: Platelet Estimate Normal (Normal)
[2021-12-24] MEDS: *HR* Heparin 5,000 UNIT/ML VIAL SQ SCH ×3 (06:11→22:01)
[2021-12-24] MEDS: Metoprolol XL (24 HR) Succ 25 MG TAB.ER.24H PO SCH ×2 (07:22→22:01)
[2021-12-24] MEDS: Multivit/Ca/Min/Fe/FA 1 TAB TABLET PO SCH (07:22)
[2021-12-24] MEDS: Aspirin 81 MG TAB.CHEW PO SCH (07:22)
[2021-12-24] MEDS: Loratadine 10 MG TABLET PO SCH (07:22)
[2021-12-24] MEDS: predniSONE 20 MG TABLET PO SCH (07:23)
[2021-12-24] MEDS: Gabapentin 300 MG CAPSULE PO SCH ×3 (07:23→22:01)
[2021-12-24] MEDS: Cholecalciferol (D-3) 1,000 UNIT (25MCG) TABLET PO SCH (07:23)
[2021-12-24] MEDS: Isosorbide MONOnitrate (24 HR) 60 MG TAB.ER.24H PO SCH (07:24)
[2021-12-24] MEDS: Insulin LISPRO 300 UNITS/3 ML VIAL SUBQ SCH ×7 (08:44→22:03)
[2021-12-24] MEDS: Insulin DETEMIR 100 UNIT/ML X5UNITS SUBQ SCH ×2 (08:45→22:02)
[2021-12-24] MEDS ORDERED: Furosemide 40 MG/4 ML VIAL IVP SCH (09:00)
[2021-12-24] MEDS: Phenylephrine 20 MG in 0.9 % Sodium Chloride 250 ML IVC SCH (09:28)
[2021-12-24] MEDS ORDERED: Melatonin 3 MG TABLET PO PRN (10:21)
[2021-12-24] MEDS ORDERED: *HR* Metoprolol 5 MG/5 ML VIAL IVP PRN (10:21)
[2021-12-24] MEDS ORDERED: D5% in Water 1,000 ML IVC PRN (10:21)
[2021-12-24] MEDS ORDERED: Dextrose 4 GM Chewable Tablets PO PRN ×2 (10:21)
[2021-12-24] MEDS ORDERED: Naloxone 0.4 MG/ML INJ IVP PRN (10:21)
[2021-12-24] MEDS ORDERED: Fluticasone Propionate Nasal 50 MCG/SPRAY BOTTLE NS PRN (10:21)
[2021-12-24] MEDS ORDERED: Benzonatate 100 MG CAPSULE PO PRN (10:21)
[2021-12-24] MEDS: Cefepime HCl 1,000 MG in 0.9 % Sodium Chloride 10 ML IVP SCH ×2 (13:01→22:02)
[2021-12-24] MEDS: predniSONE 10 MG TABLET PO SCH (13:02)
[2021-12-24 13:45] LABS: Hematocrit 26.9 % (35.3-44.9); Hemoglobin 8.1 g/dL (11.5-15.4)
[2021-12-24] MEDS: Albumin 25% 12.5gm/50mL 12.5 GM/50 ML IV.SOLN IVPB SCH ×2 (17:44→23:54)
[2021-12-24 19:49] LABS: Hemoglobin 7.8 g/dL (11.5-15.4)
[2021-12-24 19:51] LABS: Hematocrit 26.1 % (35.3-44.9)
[2021-12-25 00:48] LABS: Hematocrit 25.6 % (35.3-44.9); Hemoglobin 7.8 g/dL (11.5-15.4)
[2021-12-25] MEDS: Ipratropium/Albuterol Neb 3 ML IH SCH ×4 (05:10→22:36)
[2021-12-25] MEDS: *HR* Heparin 5,000 UNIT/ML VIAL SQ SCH ×3 (06:08→21:56)
[2021-12-25] MEDS: Cholecalciferol (D-3) 1,000 UNIT (25MCG) TABLET PO SCH (09:12)
[2021-12-25] MEDS: Insulin LISPRO 300 UNITS/3 ML VIAL SUBQ SCH ×7 (09:12→21:56)
[2021-12-25] MEDS: Isosorbide MONOnitrate (24 HR) 60 MG TAB.ER.24H PO SCH (09:13)
[2021-12-25] MEDS: Gabapentin 300 MG CAPSULE PO SCH ×3 (09:13→21:55)
[2021-12-25] MEDS: predniSONE 10 MG TABLET PO SCH (09:13)
[2021-12-25] MEDS: Aspirin 81 MG TAB.CHEW PO SCH (09:13)
[2021-12-25] MEDS: Albumin 25% 12.5gm/50mL 12.5 GM/50 ML IV.SOLN IVPB SCH ×2 (09:14→17:57)
[2021-12-25] MEDS: Metoprolol XL (24 HR) Succ 25 MG TAB.ER.24H PO SCH ×2 (09:14→21:54)
[2021-12-25] MEDS: Multivit/Ca/Min/Fe/FA 1 TAB TABLET PO SCH (09:14)
[2021-12-25] MEDS: Loratadine 10 MG TABLET PO SCH (09:14)
[2021-12-25] MEDS: Insulin DETEMIR 100 UNIT/ML X5UNITS SUBQ SCH ×2 (09:35→21:55)
[2021-12-25 09:43] LABS: Nucleated Red Blood Cells 0.1 /100 WBC (0); Red Cell Distribution Width 16.2 % (11.5-14.5)
[2021-12-25 09:45] LABS: Hematocrit 25.7 % (35.3-44.9); Hemoglobin 7.9 g/dL (11.5-15.4); Mean Corpuscular HGB Conc 30.7 g/dL (31.6-35.5); Mean Corpuscular Hemoglobin 26.4 pg (28.0-33.3); Mean Platelet Volume 12.5 fL (9.4-12.4); Platelet Count 132 K/mcL (140-400); Red Blood Count 2.99 M/mcL (3.82-4.97); White Blood Count 26.1 K/mcL (4.3-11.1)
[2021-12-25 10:11] LABS: Lymphocytes # 0.8 K/mcL (0.6-4.6); Neutrophils # 25.3 K/mcL (1.6-8.9)
[2021-12-25 10:12] LABS: Platelet Estimate Normal (Normal)
[2021-12-25 10:40] LABS: Calcium 8.7 mg/dL (8.6-10.3); Potassium 3.9 mEq/L (3.5-5.1)
[2021-12-25] MEDS: Cefepime HCl 1,000 MG in 0.9 % Sodium Chloride 10 ML IVP SCH ×2 (12:35→21:55)
[2021-12-26] MEDS: Albumin 25% 12.5gm/50mL 12.5 GM/50 ML IV.SOLN IVPB SCH ×3 (00:05→15:34)
[2021-12-26] MEDS: Ipratropium/Albuterol Neb 3 ML IH SCH ×4 (03:45→22:32)
[2021-12-26 05:07] LABS: Calcium 9.2 mg/dL (8.6-10.3)
[2021-12-26] MEDS: *HR* Heparin 5,000 UNIT/ML VIAL SQ SCH ×3 (05:08→21:56)
[2021-12-26] MEDS ORDERED: Insulin DETEMIR 100 UNIT/ML X5UNITS SUBQ SCH (09:00)
[2021-12-26] MEDS ORDERED: Vancomycin 0 MG in 0.9 % Sodium Chloride 250 ML IVPB SCH (09:00)
[2021-12-26] MEDS ORDERED: Furosemide 40 MG/4 ML VIAL IVP SCH (09:15)
[2021-12-26] MEDS: Insulin LISPRO 300 UNITS/3 ML VIAL SUBQ SCH ×6 (09:15→16:20)
[2021-12-26 09:37] LABS: Basophils # 0.1 K/mcL (0.0-0.2); Basophils % 0.3 %; Hemoglobin 8.1 g/dL (11.5-15.4); Immature Granulocytes % 3.8 % (0-4); Lymphocytes # 0.3 K/mcL (0.6-4.6); Lymphocytes % 0.9 %; Mean Corpuscular Volume 86.8 fL (83.0-100.0); Mean Platelet Volume 12.9 fL (9.4-12.4); Monocytes # 1.1 K/mcL (0.0-1.3); Monocytes % 3.6 %; Nucleated Red Blood Cells 0.1 /100 WBC (0); Platelet Count 128 K/mcL (140-400); Red Blood Count 3.11 M/mcL (3.82-4.97); Red Cell Distribution Width 16.4 % (11.5-14.5); Segmented Neutrophils % 91.4 %
[2021-12-26 09:39] LABS: Neutrophils # 28.1 K/mcL (1.6-8.9)
[2021-12-26 09:40] LABS: Platelet Estimate Slight Decrease (Normal); White Blood Count 30.7 K/mcL (4.3-11.1)
[2021-12-26 09:41] LABS: ABG Base Excess 2 mEq/L (-2 to 3); ABG HCO3 29 mEq/L (21-27); ABG Oxygen Saturation 93 % (95-98); ABG PCO2 59 mmHg (35-45); ABG PO2 74 mmHg (85-104); ABG TCO2 31 mEq/L (20-26); Blood Gas Modality BiLevel; Blood Gas VT 500 cc
[2021-12-26] MEDS: Aspirin 81 MG TAB.CHEW PO SCH (10:33)
[2021-12-26] MEDS: Isosorbide MONOnitrate (24 HR) 60 MG TAB.ER.24H PO SCH (10:33)
[2021-12-26] MEDS: Gabapentin 300 MG CAPSULE PO SCH (10:33)
[2021-12-26] MEDS: Loratadine 10 MG TABLET PO SCH (10:33)
[2021-12-26] MEDS: predniSONE 20 MG TABLET PO SCH (10:34)
[2021-12-26] MEDS: Multivit/Ca/Min/Fe/FA 1 TAB TABLET PO SCH (10:34)
[2021-12-26] MEDS: Metoprolol XL (24 HR) Succ 25 MG TAB.ER.24H PO SCH (10:34)
[2021-12-26] MEDS: Cholecalciferol (D-3) 1,000 UNIT (25MCG) TABLET PO SCH (10:34)
[2021-12-26] MEDS: Cefepime HCl 1,000 MG in 0.9 % Sodium Chloride 10 ML IVP SCH ×2 (10:39→22:50)
[2021-12-26] MEDS ORDERED: Chlorothiazide Sodium 500 MG VIAL IVP ONE (10:42)
[2021-12-26] MEDS: Furosemide 240 MG in 0.9 % Sodium Chloride 96 ML IVC SCH (11:59)
[2021-12-26] MEDS ORDERED: Vancomycin 500 MG in 0.9 % Sodium Chloride Mini Bag 100 ML IVPB ONE (14:00)
[2021-12-26] MEDS: *HR* Dextrose 50 % in Water (Syg) 50 ML SYRINGE IVP PRN ×3 (16:13→22:14)
[2021-12-26] MEDS: *HR* Metoprolol 5 MG/5 ML VIAL IVP SCH (21:56)
[2021-12-27] MEDS: Albumin 25% 12.5gm/50mL 12.5 GM/50 ML IV.SOLN IVPB SCH ×3 (00:14→15:19)
[2021-12-27] MEDS: *HR* Dextrose 50 % in Water (Syg) 50 ML SYRINGE IVP PRN (01:08)
[2021-12-27] MEDS: *HR* Metoprolol 5 MG/5 ML VIAL IVP SCH ×4 (03:17→20:58)
[2021-12-27] MEDS: Ipratropium/Albuterol Neb 3 ML IH SCH ×4 (04:07→21:44)
[2021-12-27 04:19] LABS: Basophils % 0.2 %; Eosinophils % 0.1 %
[2021-12-27 04:21] LABS: Hematocrit 24.2 % (35.3-44.9); Hemoglobin 7.3 g/dL (11.5-15.4); Immature Granulocytes % 5.7 % (0-4); Immature Platelets 3.6 % (1.1-6.1); Lymphocytes # 0.2 K/mcL (0.6-4.6); Lymphocytes % 0.9 %; Mean Corpuscular HGB Conc 30.2 g/dL (31.6-35.5); Mean Corpuscular Hemoglobin 26.1 pg (28.0-33.3); Mean Corpuscular Volume 86.4 fL (83.0-100.0); Mean Platelet Volume 14.4 fL (9.4-12.4); Monocytes # 0.7 K/mcL (0.0-1.3); Monocytes % 3.3 %; Neutrophils # 18.1 K/mcL (1.6-8.9); Nucleated Red Blood Cells 0.1 /100 WBC (0); Platelet Count 159 K/mcL (140-400); Red Cell Distribution Width 16.7 % (11.5-14.5); Segmented Neutrophils % 89.8 %; White Blood Count 20.2 K/mcL (4.3-11.1)
[2021-12-27 05:03] LABS: Calcium 8.9 mg/dL (8.6-10.3); Potassium 3.2 mEq/L (3.5-5.1)
[2021-12-27] MEDS: *HR* Heparin 5,000 UNIT/ML VIAL SQ SCH ×3 (05:15→20:35)
[2021-12-27 06:01] LABS: Platelet Estimate Slight Decrease (Normal)
[2021-12-27] MEDS: Cholecalciferol (D-3) 1,000 UNIT (25MCG) TABLET PO SCH (07:32)
[2021-12-27] MEDS: Multivit/Ca/Min/Fe/FA 1 TAB TABLET PO SCH (07:53)
[2021-12-27] MEDS: Loratadine 10 MG TABLET PO SCH (07:53)
[2021-12-27] MEDS: predniSONE 20 MG TABLET PO SCH (07:54)
[2021-12-27] MEDS: Aspirin 81 MG TAB.CHEW PO SCH (07:54)
[2021-12-27] MEDS: Isosorbide MONOnitrate (24 HR) 60 MG TAB.ER.24H PO SCH (07:54)
[2021-12-27] MEDS: Cefepime HCl 1,000 MG in 0.9 % Sodium Chloride 10 ML IVP SCH (10:20)
[2021-12-27] MEDS: Furosemide 240 MG in 0.9 % Sodium Chloride 96 ML IVC SCH (10:53)
[2021-12-27] MEDS ORDERED: Saliva Stimulant 44.3ml BOTTLE PO PRN (13:54)
[2021-12-27] MEDS ORDERED: Insulin LISPRO 300 UNITS/3 ML VIAL SUBQ SCH (16:30)
[2021-12-28] MEDS: Cefepime HCl 1,000 MG in 0.9 % Sodium Chloride 10 ML IVP SCH ×3 (00:14→23:08)
[2021-12-28] MEDS: Albumin 25% 12.5gm/50mL 12.5 GM/50 ML IV.SOLN IVPB SCH ×4 (00:15→23:09)
[2021-12-28] MEDS: *HR* Metoprolol 5 MG/5 ML VIAL IVP SCH ×2 (03:20→10:11)
[2021-12-28] MEDS: Ipratropium/Albuterol Neb 3 ML IH SCH ×4 (04:23→21:47)
[2021-12-28] MEDS: *HR* Heparin 5,000 UNIT/ML VIAL SQ SCH ×3 (05:16→20:43)
[2021-12-28 05:43] LABS: Basophils % 0.4 %
[2021-12-28 05:45] LABS: Basophils # 0.1 K/mcL (0.0-0.2); Eosinophils % 0.1 %; Hematocrit 26.2 % (35.3-44.9); Hemoglobin 8.2 g/dL (11.5-15.4); Immature Platelets 4.7 % (1.1-6.1); Lymphocytes # 0.3 K/mcL (0.6-4.6); Lymphocytes % 1.2 %; Mean Corpuscular HGB Conc 31.3 g/dL (31.6-35.5); Mean Corpuscular Hemoglobin 25.9 pg (28.0-33.3); Mean Corpuscular Volume 82.9 fL (83.0-100.0); Mean Platelet Volume 12.8 fL (9.4-12.4); Monocytes # 0.5 K/mcL (0.0-1.3); Monocytes % 2.4 %; Platelet Count 184 K/mcL (140-400); Red Blood Count 3.16 M/mcL (3.82-4.97); Red Cell Distribution Width 16.4 % (11.5-14.5); Segmented Neutrophils % 86.9 %; White Blood Count 21.9 K/mcL (4.3-11.1)
[2021-12-28 06:10] LABS: Platelet Estimate Normal (Normal)
[2021-12-28 06:22] LABS: Calcium 9.9 mg/dL (8.6-10.3); Potassium 3.3 mEq/L (3.5-5.1)
[2021-12-28] MEDS: Multivit/Ca/Min/Fe/FA 1 TAB TABLET PO SCH (08:13)
[2021-12-28] MEDS: Cholecalciferol (D-3) 1,000 UNIT (25MCG) TABLET PO SCH (08:13)
[2021-12-28] MEDS: Isosorbide MONOnitrate (24 HR) 60 MG TAB.ER.24H PO SCH (08:13)
[2021-12-28] MEDS: Aspirin 81 MG TAB.CHEW PO SCH (08:13)
[2021-12-28] MEDS: Loratadine 10 MG TABLET PO SCH (08:13)
[2021-12-28] MEDS: predniSONE 20 MG TABLET PO SCH (08:14)
[2021-12-28] MEDS: Furosemide 240 MG in 0.9 % Sodium Chloride 96 ML IVC SCH (09:28)
[2021-12-28] MEDS: carvediloL 6.25 MG TABLET PO SCH ×2 (10:59→16:34)
[2021-12-28 11:10] LABS: ABG Base Excess 6 mEq/L (-2 to 3); ABG HCO3 30 mEq/L (21-27); ABG Oxygen Saturation 96 % (95-98); ABG PCO2 40 mmHg (35-45); ABG PH 7.48 pH Units (7.32-7.45); ABG PO2 79 mmHg (85-104); ABG TCO2 31 mEq/L (20-26); Blood Gas VT 500 cc
[2021-12-28] MEDS ORDERED: Vancomycin 500 MG in 0.9 % Sodium Chloride Mini Bag 100 ML IVPB ONE (12:54)
[2021-12-28] MEDS: *HR* Metoprolol 5 MG/5 ML VIAL IVP PRN (16:34)
[2021-12-28] MEDS ORDERED: carvediloL 6.25 MG TABLET PO SCH (17:00)
[2021-12-28] MEDS: DilTIAZem 50 MG/50 ML IV.SOLN IVC SCH (20:15)
[2021-12-28] MEDS ORDERED: *HR* LORazepam 2 MG/ML VIAL IVP ONE (20:29)
[2021-12-28] MEDS: Insulin LISPRO 300 UNITS/3 ML VIAL SUBQ SCH ×2 (20:48→23:14)
[2021-12-29] MEDS: Insulin LISPRO 300 UNITS/3 ML VIAL SUBQ SCH ×6 (03:35→23:55)
[2021-12-29] MEDS: Ipratropium/Albuterol Neb 3 ML IH SCH ×4 (03:56→22:50)
[2021-12-29 05:48] LABS: Lymphocytes % 1.4 %; Mean Corpuscular Hemoglobin 25.6 pg (28.0-33.3)
[2021-12-29 05:50] LABS: Basophils # 0.1 K/mcL (0.0-0.2); Basophils % 0.4 %; Hemoglobin 7.6 g/dL (11.5-15.4); Immature Granulocytes % 6.9 % (0-4); Immature Platelets 5.7 % (1.1-6.1); Lymphocytes # 0.3 K/mcL (0.6-4.6); Mean Corpuscular HGB Conc 31.7 g/dL (31.6-35.5); Mean Corpuscular Volume 80.8 fL (83.0-100.0); Mean Platelet Volume 13.3 fL (9.4-12.4); Monocytes # 0.6 K/mcL (0.0-1.3); Monocytes % 2.6 %; Platelet Count 190 K/mcL (140-400); Red Blood Count 2.97 M/mcL (3.82-4.97); Red Cell Distribution Width 16.8 % (11.5-14.5); Segmented Neutrophils % 88.7 %; White Blood Count 22.1 K/mcL (4.3-11.1)
[2021-12-29 05:56] LABS: Neutrophils # 19.6 K/mcL (1.6-8.9)
[2021-12-29] MEDS: *HR* Heparin 5,000 UNIT/ML VIAL SQ SCH ×3 (06:28→22:33)
[2021-12-29] MEDS: DilTIAZem 50 MG/50 ML IV.SOLN IVC SCH ×5 (06:30→23:15)
[2021-12-29] MEDS: Albumin 25% 12.5gm/50mL 12.5 GM/50 ML IV.SOLN IVPB SCH ×3 (09:33→22:35)
[2021-12-29 09:39] LABS: Calcium 9.1 mg/dL (8.6-10.3); Magnesium 1.9 mg/dL (1.6-2.6); Phosphorous 2.8 mg/dL (2.7-4.5); Potassium 2.8 mEq/L (3.5-5.1)
[2021-12-29] MEDS: carvediloL 6.25 MG TABLET PO SCH ×2 (11:33→17:01)
[2021-12-29] MEDS: Aspirin 81 MG TAB.CHEW PO SCH (11:34)
[2021-12-29] MEDS: Cholecalciferol (D-3) 1,000 UNIT (25MCG) TABLET PO SCH (11:35)
[2021-12-29] MEDS: Isosorbide MONOnitrate (24 HR) 60 MG TAB.ER.24H PO SCH (11:35)
[2021-12-29] MEDS: Multivit/Ca/Min/Fe/FA 1 TAB TABLET PO SCH (11:35)
[2021-12-29] MEDS: predniSONE 20 MG TABLET PO SCH (11:35)
[2021-12-29] MEDS: Loratadine 10 MG TABLET PO SCH (11:35)
[2021-12-29] MEDS: Cefepime HCl 1,000 MG in 0.9 % Sodium Chloride 10 ML IVP SCH ×2 (11:57→22:33)
[2021-12-29] MEDS ORDERED: Potassium Chloride Elixir 20 MEQ/15 ML UDC PO ONE (12:54)
[2021-12-29 15:15] LABS: Troponin I 0.76 ng/mL (< 0.04)
[2021-12-29] MEDS ORDERED: Vancomycin 500 MG in 0.9 % Sodium Chloride Mini Bag 100 ML IVPB ONE (15:19)
[2021-12-29] MEDS: QUEtiapine Fumarate 25 MG TABLET PO SCH (20:09)
[2021-12-29] MEDS ORDERED: QUEtiapine Fumarate 25 MG TABLET PO SCH (21:00)
[2021-12-30 01:59] LABS: Basophils % 0.2 %; Hematocrit 21.2 % (35.3-44.9); Hemoglobin 6.5 g/dL (11.5-15.4); Immature Granulocytes % 4.8 % (0-4); Mean Corpuscular HGB Conc 30.7 g/dL (31.6-35.5); Monocytes % 2.3 %; Red Cell Distribution Width 17.2 % (11.5-14.5)
[2021-12-30 02:02] LABS: Eosinophils # 0.1 K/mcL (0.0-0.6); Eosinophils % 0.4 %; Immature Platelets 5.3 % (1.1-6.1); Lymphocytes # 0.3 K/mcL (0.6-4.6); Mean Corpuscular Hemoglobin 25.7 pg (28.0-33.3); Mean Corpuscular Volume 83.8 fL (83.0-100.0); Monocytes # 0.4 K/mcL (0.0-1.3); Neutrophils # 14.7 K/mcL (1.6-8.9); Platelet Count 175 K/mcL (140-400); Red Blood Count 2.53 M/mcL (3.82-4.97); Segmented Neutrophils % 90.3 %; White Blood Count 16.3 K/mcL (4.3-11.1)
[2021-12-30 02:17] LABS: Calcium 9.2 mg/dL (8.6-10.3); Potassium 3.4 mEq/L (3.5-5.1)
[2021-12-30] MEDS: DilTIAZem 50 MG/50 ML IV.SOLN IVC SCH ×2 (02:40→22:12)
[2021-12-30] MEDS: Ipratropium/Albuterol Neb 3 ML IH SCH ×4 (04:18→22:19)
[2021-12-30] MEDS: Insulin LISPRO 300 UNITS/3 ML VIAL SUBQ SCH ×5 (04:46→21:33)
[2021-12-30 05:09] LABS: Magnesium 1.9 mg/dL (1.6-2.6)
[2021-12-30] MEDS: *HR* Heparin 5,000 UNIT/ML VIAL SQ SCH ×3 (05:58→21:33)
[2021-12-30] MEDS: Albumin 25% 12.5gm/50mL 12.5 GM/50 ML IV.SOLN IVPB SCH (08:38)
[2021-12-30] MEDS: predniSONE 20 MG TABLET PO SCH (08:45)
[2021-12-30] MEDS: Loratadine 10 MG TABLET PO SCH (08:45)
[2021-12-30] MEDS: carvediloL 6.25 MG TABLET PO SCH ×2 (08:45→16:01)
[2021-12-30] MEDS: Isosorbide MONOnitrate (24 HR) 60 MG TAB.ER.24H PO SCH (08:46)
[2021-12-30] MEDS: Cholecalciferol (D-3) 1,000 UNIT (25MCG) TABLET PO SCH (08:46)
[2021-12-30] MEDS: Aspirin 81 MG TAB.CHEW PO SCH (08:46)
[2021-12-30] MEDS: Multivit/Ca/Min/Fe/FA 1 TAB TABLET PO SCH (08:46)
[2021-12-30 10:28] LABS: VBG HCO3 33 mEq/L (21-27); VBG PCO2 39 mmHg (41-51); VBG PH 7.54 pH Units (7.32-7.42); VBG PO2 174 mmHg (25-50)
[2021-12-30] MEDS ORDERED: 0.9 % Sodium Chloride 250 ML ONE (11:39)
[2021-12-30] MEDS ORDERED: DilTIAZem CD (24hr) 240 MG CAP.ER.24H PO SCH (11:45)
[2021-12-30] MEDS: Cefepime HCl 1,000 MG in 0.9 % Sodium Chloride 10 ML IVP SCH (12:05)
[2021-12-30 18:14] LABS: Nucleated Red Blood Cells 0.1 /100 WBC (0)
[2021-12-30 18:16] LABS: Hematocrit 25.7 % (35.3-44.9); Hemoglobin 8.1 g/dL (11.5-15.4); Mean Corpuscular HGB Conc 31.5 g/dL (31.6-35.5); Mean Corpuscular Hemoglobin 26.7 pg (28.0-33.3); Mean Corpuscular Volume 84.8 fL (83.0-100.0); Mean Platelet Volume 13.5 fL (9.4-12.4); Monocytes # 0.4 K/mcL (0.0-1.3); Platelet Count 179 K/mcL (140-400); Red Blood Count 3.03 M/mcL (3.82-4.97); Red Cell Distribution Width 16.8 % (11.5-14.5); White Blood Count 18.9 K/mcL (4.3-11.1)
[2021-12-30 18:54] LABS: Lymphocytes # 0.8 K/mcL (0.6-4.6); Neutrophils # 17.8 K/mcL (1.6-8.9); Platelet Estimate Normal (Normal)
[2021-12-30] MEDS: QUEtiapine Fumarate 25 MG TABLET PO SCH (21:33)
[2021-12-31] MEDS: Insulin LISPRO 300 UNITS/3 ML VIAL SUBQ SCH ×8 (00:41→23:25)
[2021-12-31] MEDS: Cefepime HCl 1,000 MG in 0.9 % Sodium Chloride 10 ML IVP SCH ×3 (00:47→23:02)
[2021-12-31] MEDS: Ipratropium/Albuterol Neb 3 ML IH SCH ×4 (03:59→22:55)
[2021-12-31 05:12] LABS: Basophils # 0.1 K/mcL (0.0-0.2); Basophils % 0.3 %; Eosinophils # 0.3 K/mcL (0.0-0.6); Eosinophils % 1.5 %; Hemoglobin 8.2 g/dL (11.5-15.4); Immature Granulocytes % 7.8 % (0-4); Lymphocytes # 0.5 K/mcL (0.6-4.6); Lymphocytes % 3.1 %; Mean Corpuscular HGB Conc 30.4 g/dL (31.6-35.5); Mean Corpuscular Hemoglobin 25.9 pg (28.0-33.3); Mean Corpuscular Volume 85.4 fL (83.0-100.0); Mean Platelet Volume 13.5 fL (9.4-12.4); Monocytes # 0.4 K/mcL (0.0-1.3); Monocytes % 2.4 %; Nucleated Red Blood Cells 0.2 /100 WBC (0); Platelet Count 157 K/mcL (140-400); Red Blood Count 3.16 M/mcL (3.82-4.97); Red Cell Distribution Width 16.7 % (11.5-14.5); Segmented Neutrophils % 84.9 %; White Blood Count 17.3 K/mcL (4.3-11.1)
[2021-12-31 05:15] LABS: Calcium 9.2 mg/dL (8.6-10.3)
[2021-12-31] MEDS: *HR* Heparin 5,000 UNIT/ML VIAL SQ SCH ×3 (05:58→20:05)
[2021-12-31 06:19] LABS: Neutrophils # 14.7 K/mcL (1.6-8.9)
[2021-12-31] MEDS: Cholecalciferol (D-3) 1,000 UNIT (25MCG) TABLET PO SCH (07:55)
[2021-12-31] MEDS: Multivit/Ca/Min/Fe/FA 1 TAB TABLET PO SCH (07:55)
[2021-12-31] MEDS: Isosorbide MONOnitrate (24 HR) 60 MG TAB.ER.24H PO SCH (07:55)
[2021-12-31] MEDS: Aspirin 81 MG TAB.CHEW PO SCH (07:55)
[2021-12-31] MEDS: carvediloL 6.25 MG TABLET PO SCH ×2 (07:55→17:53)
[2021-12-31] MEDS: Loratadine 10 MG TABLET PO SCH (07:56)
[2021-12-31] MEDS: predniSONE 20 MG TABLET PO SCH (07:56)
[2021-12-31] MEDS ORDERED: 0.9 % Sodium Chloride 250 ML IVC PRN ×2 (09:38→09:42)
[2021-12-31] MEDS ORDERED: *HR* Heparin 10,000 UNIT/10 ML VIAL IV PRN (09:42)
[2021-12-31] MEDS ORDERED: 0.9 % Sodium Chloride 1,000 ML PRIME SCH (09:45)
[2021-12-31] MEDS ORDERED: Heparin 1,000 UNITS/500 mL 500 ML ONE (09:53)
[2021-12-31] MEDS ORDERED: *HR* Heparin 5,000 UNIT/ML VIAL ONE (10:57)
[2021-12-31 11:23] LABS: Hepatitis B Surface Antibody 25.19 mIU/mL
[2021-12-31 11:34] LABS: Hepatitis B Surface Antigen Nonreactive (Nonreactive)
[2021-12-31] MEDS: DilTIAZem CD (24hr) 120 MG CAP.ER.24H PO SCH (13:54)
[2021-12-31] MEDS: QUEtiapine Fumarate 25 MG TABLET PO SCH (20:07)
[2021-12-31 22:13] LABS: INR 1.2; Prothrombin Time 13.8 Seconds (9.4-12.1)
[2022-01-01] MEDS: Ipratropium/Albuterol Neb 3 ML IH SCH ×4 (03:41→22:53)
[2022-01-01] MEDS: *HR* Heparin 5,000 UNIT/ML VIAL SQ SCH ×3 (05:30→20:54)
[2022-01-01 05:51] LABS: Hemoglobin 7.6 g/dL (11.5-15.4); Monocytes % 2.4 %; Nucleated Red Blood Cells 0.1 /100 WBC (0); Red Cell Distribution Width 16.3 % (11.5-14.5)
[2022-01-01 05:53] LABS: Basophils % 0.2 %; Eosinophils # 0.2 K/mcL (0.0-0.6); Eosinophils % 0.9 %; Hematocrit 24.2 % (35.3-44.9); Immature Granulocytes % 6.3 % (0-4); Immature Platelets 6.4 % (1.1-6.1); Lymphocytes # 0.5 K/mcL (0.6-4.6); Lymphocytes % 2.7 %; Mean Corpuscular HGB Conc 31.4 g/dL (31.6-35.5); Mean Corpuscular Hemoglobin 26.4 pg (28.0-33.3); Monocytes # 0.4 K/mcL (0.0-1.3); Neutrophils # 15.5 K/mcL (1.6-8.9); Platelet Count 177 K/mcL (140-400); Red Blood Count 2.88 M/mcL (3.82-4.97); Segmented Neutrophils % 87.5 %; White Blood Count 17.7 K/mcL (4.3-11.1)
[2022-01-01 06:06] LABS: Calcium 8.6 mg/dL (8.6-10.3); Potassium 3.3 mEq/L (3.5-5.1)
[2022-01-01] MEDS: Insulin LISPRO 300 UNITS/3 ML VIAL SUBQ SCH ×5 (06:08→20:52)
[2022-01-01 06:14] LABS: Platelet Estimate Normal (Normal)
[2022-01-01] MEDS ORDERED: 0.9 % Sodium Chloride 250 ML IVC PRN (06:47)
[2022-01-01] MEDS: Isosorbide MONOnitrate (24 HR) 60 MG TAB.ER.24H PO SCH (08:29)
[2022-01-01] MEDS: DilTIAZem CD (24hr) 120 MG CAP.ER.24H PO SCH (08:29)
[2022-01-01] MEDS: Loratadine 10 MG TABLET PO SCH (08:29)
[2022-01-01] MEDS: Aspirin 81 MG TAB.CHEW PO SCH (08:29)
[2022-01-01] MEDS: carvediloL 6.25 MG TABLET PO SCH (08:29)
[2022-01-01] MEDS: Multivit/Ca/Min/Fe/FA 1 TAB TABLET PO SCH (08:29)
[2022-01-01] MEDS: Cholecalciferol (D-3) 1,000 UNIT (25MCG) TABLET PO SCH (08:29)
[2022-01-01] MEDS: Cefepime HCl 1,000 MG in 0.9 % Sodium Chloride 10 ML IVP SCH (14:50)
[2022-01-01] MEDS: QUEtiapine Fumarate 25 MG TABLET PO SCH (20:53)
[2022-01-02] MEDS: Insulin LISPRO 300 UNITS/3 ML VIAL SUBQ SCH ×7 (00:17→23:34)
[2022-01-02] MEDS: Cefepime HCl 1,000 MG in 0.9 % Sodium Chloride 10 ML IVP SCH ×3 (00:19→23:34)
[2022-01-02] MEDS: Ipratropium/Albuterol Neb 3 ML IH SCH ×4 (03:34→20:02)
[2022-01-02 03:50] LABS: Basophils % 0.3 %; Lymphocytes % 2.7 %; Mean Corpuscular Hemoglobin 26.8 pg (28.0-33.3)
[2022-01-02 03:52] LABS: Basophils # 0.1 K/mcL (0.0-0.2); Eosinophils # 0.2 K/mcL (0.0-0.6); Eosinophils % 1.1 %; Hematocrit 27.8 % (35.3-44.9); Hemoglobin 8.8 g/dL (11.5-15.4); Immature Granulocytes % 4.6 % (0-4); Immature Platelets 7.3 % (1.1-6.1); Lymphocytes # 0.6 K/mcL (0.6-4.6); Mean Corpuscular HGB Conc 31.7 g/dL (31.6-35.5); Mean Corpuscular Volume 84.8 fL (83.0-100.0); Monocytes # 0.5 K/mcL (0.0-1.3); Monocytes % 2.3 %; Neutrophils # 19.4 K/mcL (1.6-8.9); Nucleated Red Blood Cells 0.1 /100 WBC (0); Platelet Count 184 K/mcL (140-400); Red Blood Count 3.28 M/mcL (3.82-4.97); Red Cell Distribution Width 16.1 % (11.5-14.5); White Blood Count 21.8 K/mcL (4.3-11.1)
[2022-01-02 04:03] LABS: Calcium 8.7 mg/dL (8.6-10.3); Potassium 3.5 mEq/L (3.5-5.1)
[2022-01-02] MEDS: *HR* Heparin 5,000 UNIT/ML VIAL SQ SCH ×3 (05:45→20:19)
[2022-01-02] MEDS: carvediloL 6.25 MG TABLET PO SCH ×3 (07:15→16:34)
[2022-01-02] MEDS: Loratadine 10 MG TABLET PO SCH (08:30)
[2022-01-02] MEDS: Aspirin 81 MG TAB.CHEW PO SCH (08:30)
[2022-01-02] MEDS: Cholecalciferol (D-3) 1,000 UNIT (25MCG) TABLET PO SCH (08:30)
[2022-01-02] MEDS: Furosemide 40 MG TABLET PO SCH (08:30)
[2022-01-02] MEDS: Isosorbide MONOnitrate (24 HR) 60 MG TAB.ER.24H PO SCH (08:30)
[2022-01-02] MEDS: Multivit/Ca/Min/Fe/FA 1 TAB TABLET PO SCH (08:30)
[2022-01-02] MEDS: DilTIAZem CD (24hr) 120 MG CAP.ER.24H PO SCH (08:30)
[2022-01-02] MEDS: Gabapentin 100 MG CAPSULE PO SCH ×3 (12:32→20:13)
[2022-01-02] MEDS: QUEtiapine Fumarate 25 MG TABLET PO SCH (20:13)
[2022-01-03] MEDS: Ipratropium/Albuterol Neb 3 ML IH SCH ×4 (03:31→20:25)
[2022-01-03] MEDS: Insulin LISPRO 300 UNITS/3 ML VIAL SUBQ SCH ×6 (04:19→23:42)
[2022-01-03] MEDS: *HR* Heparin 5,000 UNIT/ML VIAL SQ SCH ×3 (04:20→20:08)
[2022-01-03 04:50] LABS: Basophils % 0.2 %; Eosinophils % 1.4 %; Hemoglobin 8.1 g/dL (11.5-15.4); Lymphocytes % 3.2 %; Mean Corpuscular Volume 85.3 fL (83.0-100.0); Red Cell Distribution Width 16.6 % (11.5-14.5); Segmented Neutrophils % 88.9 %
[2022-01-03 04:52] LABS: Eosinophils # 0.3 K/mcL (0.0-0.6); Hematocrit 26.1 % (35.3-44.9); Immature Granulocytes % 3.7 % (0-4); Immature Platelets 6.5 % (1.1-6.1); Lymphocytes # 0.6 K/mcL (0.6-4.6); Mean Corpuscular Hemoglobin 26.5 pg (28.0-33.3); Monocytes # 0.5 K/mcL (0.0-1.3); Monocytes % 2.6 %; Neutrophils # 16.2 K/mcL (1.6-8.9); Platelet Count 196 K/mcL (140-400); Red Blood Count 3.06 M/mcL (3.82-4.97); White Blood Count 18.2 K/mcL (4.3-11.1)
[2022-01-03 05:08] LABS: Calcium 8.5 mg/dL (8.6-10.3); Potassium 4.1 mEq/L (3.5-5.1)
[2022-01-03] MEDS ORDERED: 0.9 % Sodium Chloride 250 ML IVC PRN (07:33)
[2022-01-03] MEDS: Gabapentin 100 MG CAPSULE PO SCH ×3 (08:33→20:08)
[2022-01-03] MEDS: Multivit/Ca/Min/Fe/FA 1 TAB TABLET PO SCH (08:33)
[2022-01-03] MEDS: Cholecalciferol (D-3) 1,000 UNIT (25MCG) TABLET PO SCH (08:33)
[2022-01-03] MEDS: Aspirin 81 MG TAB.CHEW PO SCH (08:34)
[2022-01-03] MEDS ORDERED: *HR* Heparin 10,000 UNIT/10 ML VIAL IV PRN (09:00)
[2022-01-03] MEDS ORDERED: 0.9 % Sodium Chloride 1,000 ML PRIME SCH (09:00)
[2022-01-03] MEDS: Loratadine 10 MG TABLET PO SCH (13:59)
[2022-01-03] MEDS: carvediloL 6.25 MG TABLET PO SCH ×2 (13:59→16:11)
[2022-01-03] MEDS: DilTIAZem CD (24hr) 120 MG CAP.ER.24H PO SCH (13:59)
[2022-01-03] MEDS: Isosorbide MONOnitrate (24 HR) 60 MG TAB.ER.24H PO SCH (13:59)
[2022-01-03] MEDS: Cefepime HCl 1,000 MG in 0.9 % Sodium Chloride 10 ML IVP SCH ×2 (14:00→23:42)
[2022-01-03] MEDS: *HR* HYDROcodone/Acet 5/325 mg TABLET PO PRN (14:57)
[2022-01-03] MEDS: Nystatin Ointment 15 GM TUBE TP SCH ×3 (15:00→20:08)
[2022-01-03] MEDS: Sennosides/Docusate Sodium TABLET PO SCH (15:13)
[2022-01-03] MEDS: Furosemide 40 MG TABLET PO SCH (15:13)
[2022-01-03] MEDS: *HR* Metoprolol 5 MG/5 ML VIAL IVP PRN (15:26)
[2022-01-03] MEDS: QUEtiapine Fumarate 25 MG TABLET PO SCH (20:08)
[2022-01-04] MEDS: Insulin LISPRO 300 UNITS/3 ML VIAL SUBQ SCH ×5 (04:11→20:32)
[2022-01-04] MEDS: Ipratropium/Albuterol Neb 3 ML IH SCH ×4 (04:47→21:54)
[2022-01-04 04:49] LABS: Basophils % 0.2 %; Eosinophils # 0.2 K/mcL (0.0-0.6); Eosinophils % 1.3 %; Hematocrit 25.4 % (35.3-44.9); Hemoglobin 7.6 g/dL (11.5-15.4); Immature Granulocytes % 3.3 % (0-4); Lymphocytes # 0.6 K/mcL (0.6-4.6); Lymphocytes % 3.5 %; Mean Corpuscular HGB Conc 29.9 g/dL (31.6-35.5); Mean Corpuscular Hemoglobin 26.2 pg (28.0-33.3); Mean Corpuscular Volume 87.6 fL (83.0-100.0); Monocytes # 0.6 K/mcL (0.0-1.3); Monocytes % 3.6 %; Platelet Count 105 K/mcL (140-400); Red Cell Distribution Width 16.9 % (11.5-14.5); Segmented Neutrophils % 88.1 %; White Blood Count 15.9 K/mcL (4.3-11.1)
[2022-01-04 05:14] LABS: Calcium 8.4 mg/dL (8.6-10.3); Potassium 4.1 mEq/L (3.5-5.1)
[2022-01-04] MEDS: *HR* Heparin 5,000 UNIT/ML VIAL SQ SCH ×3 (05:41→20:34)
[2022-01-04] MEDS: Cholecalciferol (D-3) 1,000 UNIT (25MCG) TABLET PO SCH (07:59)
[2022-01-04] MEDS: Sennosides/Docusate Sodium TABLET PO SCH (07:59)
[2022-01-04] MEDS: Multivit/Ca/Min/Fe/FA 1 TAB TABLET PO SCH (07:59)
[2022-01-04] MEDS: carvediloL 6.25 MG TABLET PO SCH ×2 (07:59→20:33)
[2022-01-04] MEDS: Gabapentin 100 MG CAPSULE PO SCH ×3 (07:59→20:33)
[2022-01-04] MEDS: Isosorbide MONOnitrate (24 HR) 60 MG TAB.ER.24H PO SCH (07:59)
[2022-01-04] MEDS: DilTIAZem CD (24hr) 120 MG CAP.ER.24H PO SCH (08:00)
[2022-01-04] MEDS: Aspirin 81 MG TAB.CHEW PO SCH (08:00)
[2022-01-04] MEDS: Loratadine 10 MG TABLET PO SCH (08:00)
[2022-01-04] MEDS: Furosemide 40 MG TABLET PO SCH (08:00)
[2022-01-04] MEDS: Nystatin Ointment 15 GM TUBE TP SCH ×3 (08:01→20:32)
[2022-01-04] MEDS: Cefepime HCl 1,000 MG in 0.9 % Sodium Chloride 10 ML IVP SCH ×2 (11:41→22:48)
[2022-01-04] MEDS: *HR* HYDROcodone/Acet 5/325 mg TABLET PO PRN (12:00)
[2022-01-04] MEDS: QUEtiapine Fumarate 25 MG TABLET PO SCH (20:34)
[2022-01-05] MEDS: Insulin LISPRO 300 UNITS/3 ML VIAL SUBQ SCH ×6 (00:33→22:50)
[2022-01-05] MEDS: Ipratropium/Albuterol Neb 3 ML IH SCH ×4 (04:04→22:21)
[2022-01-05 04:07] LABS: Eosinophils % 1.7 %
[2022-01-05 04:09] LABS: Basophils # 0.1 K/mcL (0.0-0.2); Basophils % 0.3 %; Eosinophils # 0.3 K/mcL (0.0-0.6); Hematocrit 25.8 % (35.3-44.9); Hemoglobin 7.8 g/dL (11.5-15.4); Lymphocytes # 0.4 K/mcL (0.6-4.6); Lymphocytes % 2.8 %; Mean Corpuscular HGB Conc 30.2 g/dL (31.6-35.5); Mean Corpuscular Hemoglobin 26.5 pg (28.0-33.3); Mean Corpuscular Volume 87.8 fL (83.0-100.0); Monocytes # 0.6 K/mcL (0.0-1.3); Monocytes % 3.7 %; Neutrophils # 13.7 K/mcL (1.6-8.9); Platelet Count 171 K/mcL (140-400); Red Blood Count 2.94 M/mcL (3.82-4.97); Red Cell Distribution Width 16.6 % (11.5-14.5); Segmented Neutrophils % 88.5 %; White Blood Count 15.5 K/mcL (4.3-11.1)
[2022-01-05 04:22] LABS: Calcium 8.5 mg/dL (8.6-10.3); Potassium 4.6 mEq/L (3.5-5.1)
[2022-01-05 05:02] LABS: Platelet Estimate Normal (Normal)
[2022-01-05] MEDS: *HR* Heparin 5,000 UNIT/ML VIAL SQ SCH ×2 (05:33→12:10)
[2022-01-05] MEDS ORDERED: 0.9 % Sodium Chloride 250 ML IVC PRN (07:38)
[2022-01-05] MEDS: Sennosides/Docusate Sodium TABLET PO SCH (08:59)
[2022-01-05] MEDS: Gabapentin 100 MG CAPSULE PO SCH ×3 (09:00→22:39)
[2022-01-05] MEDS: Multivit/Ca/Min/Fe/FA 1 TAB TABLET PO SCH (09:00)
[2022-01-05] MEDS: Loratadine 10 MG TABLET PO SCH (09:00)
[2022-01-05] MEDS: Furosemide 40 MG TABLET PO SCH (09:00)
[2022-01-05] MEDS: Cholecalciferol (D-3) 1,000 UNIT (25MCG) TABLET PO SCH (09:00)
[2022-01-05] MEDS: Aspirin 81 MG TAB.CHEW PO SCH (09:00)
[2022-01-05] MEDS: carvediloL 6.25 MG TABLET PO SCH ×2 (09:00→22:39)
[2022-01-05] MEDS: DilTIAZem CD (24hr) 120 MG CAP.ER.24H PO SCH (09:00)
[2022-01-05] MEDS: Nystatin Ointment 15 GM TUBE TP SCH ×2 (09:09→16:14)
[2022-01-05] MEDS ORDERED: Heparin 1,000 UNITS/500 mL 500 ML ONE (11:42)
[2022-01-05] MEDS ORDERED: Lidocaine/EPI 1:100k 1% 50 ML VIAL ONE (11:42)
[2022-01-05] MEDS: *HR* HYDROcodone/Acet 5/325 mg TABLET PO PRN (12:27)
[2022-01-05] MEDS ORDERED: *HR* Heparin 10,000 UNIT/10 ML VIAL IV PRN (12:35)
[2022-01-05] MEDS: Isosorbide MONOnitrate (24 HR) 60 MG TAB.ER.24H PO SCH (12:47)
[2022-01-05] MEDS ORDERED: Benzonatate 100 MG CAPSULE PO PRN (12:56)
[2022-01-05] MEDS: QUEtiapine Fumarate 25 MG TABLET PO SCH (22:40)
[2022-01-05] MEDS: Insulin DETEMIR 100 UNIT/ML X5UNITS SUBQ SCH (22:49)
[2022-01-06] MEDS: *HR* HYDROcodone/Acet 5/325 mg TABLET PO PRN ×2 (01:16→17:24)
[2022-01-06] MEDS: Nystatin Ointment 15 GM TUBE TP SCH ×5 (01:23→21:01)
[2022-01-06] MEDS: Insulin LISPRO 300 UNITS/3 ML VIAL SUBQ SCH ×6 (01:25→21:00)
[2022-01-06] MEDS: Ipratropium/Albuterol Neb 3 ML IH SCH ×4 (03:18→22:41)
[2022-01-06 04:59] LABS: Calcium 8.7 mg/dL (8.6-10.3)
[2022-01-06 05:24] LABS: Hemoglobin 7.6 g/dL (11.5-15.4); Immature Granulocytes % 2.2 % (0-4)
[2022-01-06 05:26] LABS: Basophils % 0.2 %; Eosinophils # 0.2 K/mcL (0.0-0.6); Eosinophils % 1.5 %; Lymphocytes # 0.4 K/mcL (0.6-4.6); Lymphocytes % 2.9 %; Mean Corpuscular HGB Conc 31.7 g/dL (31.6-35.5); Mean Corpuscular Hemoglobin 27.5 pg (28.0-33.3); Monocytes # 0.7 K/mcL (0.0-1.3); Monocytes % 4.7 %; Neutrophils # 12.6 K/mcL (1.6-8.9); Nucleated Red Blood Cells 0.1 /100 WBC (0); Platelet Count 213 K/mcL (140-400); Red Blood Count 2.76 M/mcL (3.82-4.97); Red Cell Distribution Width 16.8 % (11.5-14.5); Segmented Neutrophils % 88.5 %; White Blood Count 14.2 K/mcL (4.3-11.1)
[2022-01-06] MEDS ORDERED: *HR* Midazolam HCl 2 MG/2 ML VIAL IVP ONE (08:29)
[2022-01-06] MEDS ORDERED: Clindamycin 600 MG/50 ML 600 MG/50 ML IV.SOLN IVPB ONE (08:29)
[2022-01-06] MEDS ORDERED: *HR* FentaNYL (PF) 100 MCG/2 ML VIAL IVP ONE (08:29)
[2022-01-06] MEDS ORDERED: 0.9 % Sodium Chloride 500 ML ONE (08:42)
[2022-01-06] MEDS ORDERED: Heparin 1,000 UNITS/500 mL 500 ML ONE (08:49)
[2022-01-06] MEDS ORDERED: *HR* Heparin 5,000 UNIT/ML VIAL ONE (08:51)
[2022-01-06] MEDS: Insulin DETEMIR 100 UNIT/ML X5UNITS SUBQ SCH ×2 (10:28→21:01)
[2022-01-06] MEDS: Loratadine 10 MG TABLET PO SCH (10:32)
[2022-01-06] MEDS: Aspirin 81 MG TAB.CHEW PO SCH (10:32)
[2022-01-06] MEDS: Multivit/Ca/Min/Fe/FA 1 TAB TABLET PO SCH (10:33)
[2022-01-06] MEDS: Sennosides/Docusate Sodium TABLET PO SCH (10:33)
[2022-01-06] MEDS: carvediloL 6.25 MG TABLET PO SCH ×2 (10:34→17:19)
[2022-01-06] MEDS: Cholecalciferol (D-3) 1,000 UNIT (25MCG) TABLET PO SCH (10:34)
[2022-01-06] MEDS: DilTIAZem CD (24hr) 120 MG CAP.ER.24H PO SCH (10:34)
[2022-01-06] MEDS: Gabapentin 100 MG CAPSULE PO SCH (10:48)
[2022-01-06] MEDS: Furosemide 40 MG TABLET PO SCH (10:59)
[2022-01-06] MEDS: Isosorbide MONOnitrate (24 HR) 60 MG TAB.ER.24H PO SCH (11:01)
[2022-01-06] MEDS: QUEtiapine Fumarate 25 MG TABLET PO SCH (20:58)
[2022-01-06] MEDS: *HR* Heparin 5,000 UNIT/ML VIAL SQ SCH (21:01)
[2022-01-07] MEDS: Ipratropium/Albuterol Neb 3 ML IH SCH ×4 (03:47→22:06)
[2022-01-07] MEDS: *HR* Heparin 5,000 UNIT/ML VIAL SQ SCH ×4 (04:24→22:02)
[2022-01-07 04:58] LABS: Basophils % 0.3 %; Eosinophils # 0.2 K/mcL (0.0-0.6); Eosinophils % 2.2 %; Hematocrit 22.5 % (35.3-44.9); Hemoglobin 6.9 g/dL (11.5-15.4); Immature Granulocytes % 1.9 % (0-4); Immature Platelets 6.3 % (1.1-6.1); Lymphocytes # 0.4 K/mcL (0.6-4.6); Lymphocytes % 3.9 %; Mean Corpuscular HGB Conc 30.7 g/dL (31.6-35.5); Mean Corpuscular Hemoglobin 27.1 pg (28.0-33.3); Mean Corpuscular Volume 88.2 fL (83.0-100.0); Monocytes # 0.6 K/mcL (0.0-1.3); Neutrophils # 8.5 K/mcL (1.6-8.9); Platelet Count 188 K/mcL (140-400); Red Blood Count 2.55 M/mcL (3.82-4.97); Red Cell Distribution Width 16.4 % (11.5-14.5); Segmented Neutrophils % 85.7 %; White Blood Count 9.9 K/mcL (4.3-11.1)
[2022-01-07] MEDS ORDERED: 0.9 % Sodium Chloride 250 ML IVC PRN (06:08)
[2022-01-07 07:49] LABS: Calcium 8.7 mg/dL (8.6-10.3)
[2022-01-07] MEDS ORDERED: *HR* Heparin 10,000 UNIT/10 ML VIAL IV PRN (08:08)
[2022-01-07] MEDS: DilTIAZem CD (24hr) 120 MG CAP.ER.24H PO SCH (08:59)
[2022-01-07] MEDS: Sennosides/Docusate Sodium TABLET PO SCH (08:59)
[2022-01-07] MEDS: Insulin LISPRO 300 UNITS/3 ML VIAL SUBQ SCH ×7 (08:59→22:08)
[2022-01-07] MEDS: Loratadine 10 MG TABLET PO SCH (08:59)
[2022-01-07] MEDS: Aspirin 81 MG TAB.CHEW PO SCH (08:59)
[2022-01-07] MEDS: Isosorbide MONOnitrate (24 HR) 60 MG TAB.ER.24H PO SCH (08:59)
[2022-01-07] MEDS: Multivit/Ca/Min/Fe/FA 1 TAB TABLET PO SCH (08:59)
[2022-01-07] MEDS: Cholecalciferol (D-3) 1,000 UNIT (25MCG) TABLET PO SCH (08:59)
[2022-01-07] MEDS ORDERED: Gabapentin 100 MG CAPSULE PO SCH (09:00)
[2022-01-07] MEDS: Nystatin Ointment 15 GM TUBE TP SCH ×4 (09:01→22:10)
[2022-01-07] MEDS: Insulin DETEMIR 100 UNIT/ML X5UNITS SUBQ SCH ×2 (09:04→22:07)
[2022-01-07] MEDS: *HR* HYDROcodone/Acet 5/325 mg TABLET PO PRN ×2 (09:04→22:00)
[2022-01-07] MEDS: carvediloL 6.25 MG TABLET PO SCH ×2 (11:52→17:36)
[2022-01-07] MEDS: Gabapentin 100 MG CAPSULE PO SCH ×2 (15:17→22:02)
[2022-01-07] MEDS: QUEtiapine Fumarate 25 MG TABLET PO SCH (22:01)
[2022-01-08 02:58] LABS: Basophils % 0.4 %; Mean Corpuscular HGB Conc 31.2 g/dL (31.6-35.5); Mean Corpuscular Hemoglobin 27.4 pg (28.0-33.3)
[2022-01-08 03:00] LABS: Eosinophils # 0.3 K/mcL (0.0-0.6); Eosinophils % 3.3 %; Hematocrit 24.7 % (35.3-44.9); Hemoglobin 7.7 g/dL (11.5-15.4); Immature Granulocytes % 1.9 % (0-4); Immature Platelets 6.4 % (1.1-6.1); Lymphocytes # 0.3 K/mcL (0.6-4.6); Lymphocytes % 2.8 %; Mean Corpuscular Volume 87.9 fL (83.0-100.0); Mean Platelet Volume 14.3 fL (9.4-12.4); Monocytes # 0.7 K/mcL (0.0-1.3); Monocytes % 7.3 %; Neutrophils # 8.1 K/mcL (1.6-8.9); Platelet Count 202 K/mcL (140-400); Red Blood Count 2.81 M/mcL (3.82-4.97); Red Cell Distribution Width 16.2 % (11.5-14.5); Segmented Neutrophils % 84.3 %; White Blood Count 9.6 K/mcL (4.3-11.1)
[2022-01-08 03:17] LABS: Calcium 8.6 mg/dL (8.6-10.3); Potassium 4.8 mEq/L (3.5-5.1)
[2022-01-08] MEDS: Ipratropium/Albuterol Neb 3 ML IH SCH ×4 (04:08→21:48)
[2022-01-08] MEDS: *HR* Heparin 5,000 UNIT/ML VIAL SQ SCH ×3 (06:26→21:09)
[2022-01-08] MEDS: Cefepime HCl 1,000 MG in 0.9 % Sodium Chloride 10 ML IVP SCH (07:16)
[2022-01-08] MEDS: Insulin LISPRO 300 UNITS/3 ML VIAL SUBQ SCH ×7 (08:05→21:09)
[2022-01-08] MEDS: Nystatin Ointment 15 GM TUBE TP SCH ×4 (08:06→21:10)
[2022-01-08] MEDS: Insulin DETEMIR 100 UNIT/ML X5UNITS SUBQ SCH ×2 (08:06→21:10)
[2022-01-08] MEDS: Sennosides/Docusate Sodium TABLET PO SCH (08:45)
[2022-01-08] MEDS: Gabapentin 100 MG CAPSULE PO SCH ×3 (08:45→21:09)
[2022-01-08] MEDS: Loratadine 10 MG TABLET PO SCH (08:45)
[2022-01-08] MEDS: Multivit/Ca/Min/Fe/FA 1 TAB TABLET PO SCH (08:45)
[2022-01-08] MEDS: carvediloL 6.25 MG TABLET PO SCH ×3 (08:45→17:26)
[2022-01-08] MEDS: Cholecalciferol (D-3) 1,000 UNIT (25MCG) TABLET PO SCH (08:52)
[2022-01-08 09:15] LABS: ABG Base Excess 1 mEq/L (-2 to 3); ABG HCO3 28 mEq/L (21-27); ABG Oxygen Saturation 89 % (95-98); ABG PCO2 51 mmHg (35-45); ABG PH 7.34 pH Units (7.32-7.45); ABG PO2 61 mmHg (85-104); ABG TCO2 29 mEq/L (20-26)
[2022-01-08] MEDS: Isosorbide MONOnitrate (24 HR) 60 MG TAB.ER.24H PO SCH (09:37)
[2022-01-08] MEDS: DilTIAZem CD (24hr) 120 MG CAP.ER.24H PO SCH (09:37)
[2022-01-08] MEDS: Iron Sucrose Complex 250 MG in 0.9 % Sodium Chloride 250 ML IVPB SCH (09:38)
[2022-01-08] MEDS: Aspirin 81 MG TAB.CHEW PO SCH (09:38)
[2022-01-08] MEDS: QUEtiapine Fumarate 25 MG TABLET PO SCH (21:09)
[2022-01-09] MEDS: Ipratropium/Albuterol Neb 3 ML IH SCH ×4 (03:59→20:39)
[2022-01-09] MEDS: *HR* Heparin 5,000 UNIT/ML VIAL SQ SCH ×3 (05:17→20:44)
[2022-01-09] MEDS: Insulin LISPRO 300 UNITS/3 ML VIAL SUBQ SCH ×7 (07:34→20:43)
[2022-01-09] MEDS: Insulin DETEMIR 100 UNIT/ML X5UNITS SUBQ SCH ×2 (07:35→20:43)
[2022-01-09] MEDS: Iron Sucrose Complex 250 MG in 0.9 % Sodium Chloride 250 ML IVPB SCH (07:35)
[2022-01-09] MEDS: Loratadine 10 MG TABLET PO SCH (07:36)
[2022-01-09] MEDS: Aspirin 81 MG TAB.CHEW PO SCH (07:36)
[2022-01-09] MEDS: Multivit/Ca/Min/Fe/FA 1 TAB TABLET PO SCH (07:36)
[2022-01-09] MEDS: Nystatin Ointment 15 GM TUBE TP SCH ×4 (07:36→20:44)
[2022-01-09] MEDS: Cholecalciferol (D-3) 1,000 UNIT (25MCG) TABLET PO SCH (07:36)
[2022-01-09] MEDS: Gabapentin 100 MG CAPSULE PO SCH ×3 (07:36→20:44)
[2022-01-09] MEDS: Sennosides/Docusate Sodium TABLET PO SCH (07:36)
[2022-01-09] MEDS: carvediloL 6.25 MG TABLET PO SCH ×2 (07:36→16:45)
[2022-01-09] MEDS: DilTIAZem CD (24hr) 120 MG CAP.ER.24H PO SCH (07:36)
[2022-01-09] MEDS: Isosorbide MONOnitrate (24 HR) 60 MG TAB.ER.24H PO SCH (07:37)
[2022-01-09] MEDS: QUEtiapine Fumarate 25 MG TABLET PO SCH (20:43)
[2022-01-09] MEDS: Melatonin 3 MG TABLET PO SCH (20:44)
[2022-01-10 04:03] LABS: Mean Corpuscular Volume 86.8 fL (83.0-100.0)
[2022-01-10 04:05] LABS: Hematocrit 23.7 % (35.3-44.9); Hemoglobin 7.5 g/dL (11.5-15.4); Immature Platelets 5.1 % (1.1-6.1); Mean Corpuscular HGB Conc 31.6 g/dL (31.6-35.5); Mean Corpuscular Hemoglobin 27.5 pg (28.0-33.3); Platelet Count 213 K/mcL (140-400); Red Blood Count 2.73 M/mcL (3.82-4.97); Red Cell Distribution Width 16.4 % (11.5-14.5); White Blood Count 9.4 K/mcL (4.3-11.1)
[2022-01-10 04:13] LABS: Calcium 8.6 mg/dL (8.6-10.3); Potassium 6.2 mEq/L (3.5-5.1)
[2022-01-10] MEDS: Ipratropium/Albuterol Neb 3 ML IH SCH ×4 (04:44→22:30)
[2022-01-10] MEDS: *HR* Heparin 5,000 UNIT/ML VIAL SQ SCH (05:12)
[2022-01-10] MEDS: DilTIAZem CD (24hr) 120 MG CAP.ER.24H PO SCH (08:39)
[2022-01-10] MEDS: *HR* HYDROcodone/Acet 5/325 mg TABLET PO PRN ×2 (08:39→22:20)
[2022-01-10] MEDS: Nystatin Ointment 15 GM TUBE TP SCH ×4 (08:39→22:14)
[2022-01-10] MEDS: Multivit/Ca/Min/Fe/FA 1 TAB TABLET PO SCH (08:39)
[2022-01-10] MEDS: Cholecalciferol (D-3) 1,000 UNIT (25MCG) TABLET PO SCH (08:39)
[2022-01-10] MEDS: Loratadine 10 MG TABLET PO SCH (08:40)
[2022-01-10] MEDS: Isosorbide MONOnitrate (24 HR) 60 MG TAB.ER.24H PO SCH (08:40)
[2022-01-10] MEDS: Iron Sucrose Complex 250 MG in 0.9 % Sodium Chloride 250 ML IVPB SCH (08:40)
[2022-01-10] MEDS: carvediloL 6.25 MG TABLET PO SCH ×2 (08:40→17:57)
[2022-01-10] MEDS: Aspirin 81 MG TAB.CHEW PO SCH (08:40)
[2022-01-10] MEDS: Sennosides/Docusate Sodium TABLET PO SCH (08:40)
[2022-01-10] MEDS: Gabapentin 100 MG CAPSULE PO SCH ×3 (08:40→22:12)
[2022-01-10] MEDS: Insulin LISPRO 300 UNITS/3 ML VIAL SUBQ SCH ×7 (08:41→22:14)
[2022-01-10] MEDS: Insulin DETEMIR 100 UNIT/ML X5UNITS SUBQ SCH ×2 (08:41→22:12)
[2022-01-10] MEDS ORDERED: 0.9 % Sodium Chloride 250 ML IVC PRN (09:39)
[2022-01-10] MEDS ORDERED: *HR* Heparin 10,000 UNIT/10 ML VIAL IV PRN (09:39)
[2022-01-10] MEDS: QUEtiapine Fumarate 25 MG TABLET PO SCH (22:12)
[2022-01-10] MEDS: Melatonin 3 MG TABLET PO SCH (22:12)
[2022-01-11] MEDS: Ipratropium/Albuterol Neb 3 ML IH SCH ×4 (04:06→21:53)
[2022-01-11 05:41] LABS: Calcium 8.5 mg/dL (8.6-10.3); Potassium 5.4 mEq/L (3.5-5.1)
[2022-01-11] MEDS: Cholecalciferol (D-3) 1,000 UNIT (25MCG) TABLET PO SCH (09:04)
[2022-01-11] MEDS: Isosorbide MONOnitrate (24 HR) 60 MG TAB.ER.24H PO SCH (09:05)
[2022-01-11] MEDS: Insulin DETEMIR 100 UNIT/ML X5UNITS SUBQ SCH ×2 (09:05→21:18)
[2022-01-11] MEDS: Loratadine 10 MG TABLET PO SCH (09:05)
[2022-01-11] MEDS: carvediloL 6.25 MG TABLET PO SCH ×2 (09:05→16:49)
[2022-01-11] MEDS: Aspirin 81 MG TAB.CHEW PO SCH (09:05)
[2022-01-11] MEDS: DilTIAZem CD (24hr) 120 MG CAP.ER.24H PO SCH (09:05)
[2022-01-11] MEDS: Gabapentin 100 MG CAPSULE PO SCH ×3 (09:05→21:21)
[2022-01-11] MEDS: Insulin LISPRO 300 UNITS/3 ML VIAL SUBQ SCH ×7 (09:05→21:18)
[2022-01-11] MEDS: Multivit/Ca/Min/Fe/FA 1 TAB TABLET PO SCH (09:05)
[2022-01-11] MEDS: Sennosides/Docusate Sodium TABLET PO SCH (09:05)
[2022-01-11] MEDS: Nystatin Ointment 15 GM TUBE TP SCH ×4 (09:06→21:23)
[2022-01-11] MEDS: QUEtiapine Fumarate 25 MG TABLET PO SCH (21:21)
[2022-01-11] MEDS: Melatonin 3 MG TABLET PO SCH (21:23)
[2022-01-12] MEDS: Ipratropium/Albuterol Neb 3 ML IH SCH ×4 (03:51→22:45)
[2022-01-12 05:50] LABS: Calcium 8.6 mg/dL (8.6-10.3); Potassium 5.5 mEq/L (3.5-5.1)
[2022-01-12] MEDS ORDERED: *HR* Heparin 10,000 UNIT/10 ML VIAL IV PRN ×2 (08:58)
[2022-01-12] MEDS ORDERED: 0.9 % Sodium Chloride 250 ML IVC PRN (08:58)
[2022-01-12] MEDS: Nystatin Ointment 15 GM TUBE TP SCH ×4 (09:24→21:13)
[2022-01-12] MEDS: Insulin LISPRO 300 UNITS/3 ML VIAL SUBQ SCH ×7 (09:25→21:14)
[2022-01-12] MEDS: Isosorbide MONOnitrate (24 HR) 60 MG TAB.ER.24H PO SCH (09:26)
[2022-01-12] MEDS: Loratadine 10 MG TABLET PO SCH (09:26)
[2022-01-12] MEDS: carvediloL 6.25 MG TABLET PO SCH ×2 (09:26→16:54)
[2022-01-12] MEDS: Aspirin 81 MG TAB.CHEW PO SCH (09:26)
[2022-01-12] MEDS: Sennosides/Docusate Sodium TABLET PO SCH (09:26)
[2022-01-12] MEDS: Cholecalciferol (D-3) 1,000 UNIT (25MCG) TABLET PO SCH (09:26)
[2022-01-12] MEDS: Multivit/Ca/Min/Fe/FA 1 TAB TABLET PO SCH (09:26)
[2022-01-12] MEDS: DilTIAZem CD (24hr) 120 MG CAP.ER.24H PO SCH (09:26)
[2022-01-12] MEDS: Gabapentin 100 MG CAPSULE PO SCH ×3 (09:26→21:13)
[2022-01-12] MEDS: Insulin DETEMIR 100 UNIT/ML X5UNITS SUBQ SCH ×2 (09:28→21:14)
[2022-01-12] MEDS ORDERED: Albumin 25% 25gram/100mL 25 GM/100 ML IV.SOLN IVPB ONE (11:28)
[2022-01-12] MEDS ORDERED: Albumin 25% 25gram/100mL 25 GM/100 ML IV.SOLN ONE (11:31)
[2022-01-12] MEDS: Melatonin 3 MG TABLET PO SCH (21:13)
[2022-01-13] MEDS: Ipratropium/Albuterol Neb 3 ML IH SCH ×4 (03:39→21:58)
[2022-01-13 04:56] LABS: Hemoglobin 6.9 g/dL (11.5-15.4); Red Cell Distribution Width 17.2 % (11.5-14.5)
[2022-01-13 04:58] LABS: Basophils % 0.3 %; Eosinophils # 0.1 K/mcL (0.0-0.6); Eosinophils % 1.7 %; Immature Granulocytes % 4.3 % (0-4); Immature Platelets 6.9 % (1.1-6.1); Lymphocytes # 0.2 K/mcL (0.6-4.6); Lymphocytes % 2.7 %; Mean Corpuscular HGB Conc 31.4 g/dL (31.6-35.5); Mean Corpuscular Hemoglobin 27.7 pg (28.0-33.3); Mean Corpuscular Volume 88.4 fL (83.0-100.0); Monocytes # 0.5 K/mcL (0.0-1.3); Monocytes % 5.9 %; Nucleated Red Blood Cells 0.3 /100 WBC (0); Platelet Count 166 K/mcL (140-400); Red Blood Count 2.49 M/mcL (3.82-4.97); Segmented Neutrophils % 85.1 %; White Blood Count 7.7 K/mcL (4.3-11.1)
[2022-01-13 05:00] LABS: Neutrophils # 6.6 K/mcL (1.6-8.9)
[2022-01-13 05:15] LABS: Calcium 8.5 mg/dL (8.6-10.3); Potassium 5.4 mEq/L (3.5-5.1)
[2022-01-13] MEDS ORDERED: 0.9 % Sodium Chloride 250 ML IVC SCH (07:15)
[2022-01-13] MEDS: Insulin LISPRO 300 UNITS/3 ML VIAL SUBQ SCH ×7 (09:13→21:34)
[2022-01-13] MEDS: Pantoprazole 40 MG VIAL IVP SCH (09:15)
[2022-01-13] MEDS: DilTIAZem CD (24hr) 120 MG CAP.ER.24H PO SCH (09:16)
[2022-01-13] MEDS: Multivit/Ca/Min/Fe/FA 1 TAB TABLET PO SCH (09:16)
[2022-01-13] MEDS: Cholecalciferol (D-3) 1,000 UNIT (25MCG) TABLET PO SCH (09:17)
[2022-01-13] MEDS: Loratadine 10 MG TABLET PO SCH (09:17)
[2022-01-13] MEDS: Gabapentin 100 MG CAPSULE PO SCH (09:17)
[2022-01-13] MEDS: Isosorbide MONOnitrate (24 HR) 30 MG TAB.ER.24H PO SCH (09:17)
[2022-01-13] MEDS: Sennosides/Docusate Sodium TABLET PO SCH (09:17)
[2022-01-13] MEDS: carvediloL 6.25 MG TABLET PO SCH ×2 (09:17→17:22)
[2022-01-13] MEDS: Nystatin Ointment 15 GM TUBE TP SCH ×4 (09:20→21:34)
[2022-01-13] MEDS: Insulin DETEMIR 100 UNIT/ML X5UNITS SUBQ SCH ×2 (11:17→21:33)
[2022-01-13] MEDS ORDERED: Insulin DETEMIR 100 UNIT/ML X5UNITS SUBQ SCH (21:00)
[2022-01-13] MEDS ORDERED: Gabapentin 100 MG CAPSULE PO SCH (21:00)
[2022-01-13] MEDS: Melatonin 3 MG TABLET PO SCH (21:33)
[2022-01-14] MEDS: Ipratropium/Albuterol Neb 3 ML IH SCH ×4 (04:00→22:49)
[2022-01-14 05:44] LABS: Hematocrit 24.7 % (35.3-44.9); Hemoglobin 7.7 g/dL (11.5-15.4); Immature Platelets 3.6 % (1.1-6.1); Lymphocytes # 0.5 K/mcL (0.6-4.6); Mean Corpuscular HGB Conc 31.2 g/dL (31.6-35.5); Mean Corpuscular Hemoglobin 27.5 pg (28.0-33.3); Mean Corpuscular Volume 88.2 fL (83.0-100.0); Platelet Count 219 K/mcL (140-400); White Blood Count 7.6 K/mcL (4.3-11.1)
[2022-01-14 06:03] LABS: Calcium 8.8 mg/dL (8.6-10.3); Potassium 5.4 mEq/L (3.5-5.1)
[2022-01-14 06:31] LABS: Monocytes # 0.3 K/mcL (0.0-1.3); Neutrophils # 6.8 K/mcL (1.6-8.9); Platelet Estimate Normal (Normal)
[2022-01-14] MEDS: Insulin LISPRO 300 UNITS/3 ML VIAL SUBQ SCH ×7 (07:40→22:26)
[2022-01-14] MEDS ORDERED: Simethicone 40 MG/0.6 ML MLS IR ONE (07:44)
[2022-01-14] MEDS ORDERED: *HR* Heparin 10,000 UNIT/10 ML VIAL IV PRN ×2 (09:00)
[2022-01-14] MEDS ORDERED: 0.9 % Sodium Chloride 250 ML IVC PRN (09:00)
[2022-01-14] MEDS: carvediloL 6.25 MG TABLET PO SCH ×2 (09:22→15:28)
[2022-01-14] MEDS: Insulin DETEMIR 100 UNIT/ML X5UNITS SUBQ SCH ×2 (09:23→22:25)
[2022-01-14] MEDS: Nystatin Ointment 15 GM TUBE TP SCH ×4 (09:23→21:00)
[2022-01-14] MEDS: Cholecalciferol (D-3) 1,000 UNIT (25MCG) TABLET PO SCH (09:24)
[2022-01-14] MEDS: Loratadine 10 MG TABLET PO SCH (09:24)
[2022-01-14] MEDS: Multivit/Ca/Min/Fe/FA 1 TAB TABLET PO SCH (09:24)
[2022-01-14] MEDS: Pantoprazole 40 MG VIAL IVP SCH (09:24)
[2022-01-14] MEDS: Sennosides/Docusate Sodium TABLET PO SCH (09:24)
[2022-01-14] MEDS: Isosorbide MONOnitrate (24 HR) 30 MG TAB.ER.24H PO SCH (15:29)
[2022-01-14] MEDS: DilTIAZem CD (24hr) 120 MG CAP.ER.24H PO SCH (15:29)
[2022-01-14] MEDS: Nystatin SUSP 5 ML UD.LIQ PO SCH ×2 (16:27→22:24)
[2022-01-14] MEDS: Sucralfate 1 GM TABLET PO SCH (22:25)
[2022-01-14] MEDS: Melatonin 3 MG TABLET PO SCH (22:25)
[2022-01-14] MEDS: *HR* HYDROcodone/Acet 5/325 mg TABLET PO PRN (22:25)
[2022-01-15] MEDS: Nystatin Ointment 15 GM TUBE TP SCH ×4 (03:01→21:19)
[2022-01-15 03:53] LABS: Basophils % 0.6 %; Hematocrit 23.9 % (35.3-44.9); Immature Granulocytes % 4.7 % (0-4); Mean Corpuscular Volume 88.8 fL (83.0-100.0); Red Blood Count 2.69 M/mcL (3.82-4.97)
[2022-01-15 03:55] LABS: Eosinophils # 0.2 K/mcL (0.0-0.6); Eosinophils % 2.5 %; Hemoglobin 7.5 g/dL (11.5-15.4); Lymphocytes # 0.3 K/mcL (0.6-4.6); Mean Corpuscular HGB Conc 31.4 g/dL (31.6-35.5); Mean Corpuscular Hemoglobin 27.9 pg (28.0-33.3); Monocytes # 0.5 K/mcL (0.0-1.3); Monocytes % 7.9 %; Neutrophils # 5.4 K/mcL (1.6-8.9); Platelet Count 199 K/mcL (140-400); Red Cell Distribution Width 17.3 % (11.5-14.5); Segmented Neutrophils % 79.3 %; White Blood Count 6.8 K/mcL (4.3-11.1)
[2022-01-15 04:11] LABS: Calcium 8.6 mg/dL (8.6-10.3); Potassium 4.4 mEq/L (3.5-5.1)
[2022-01-15] MEDS: Ipratropium/Albuterol Neb 3 ML IH SCH ×4 (04:19→22:54)
[2022-01-15] MEDS: Insulin LISPRO 300 UNITS/3 ML VIAL SUBQ SCH ×7 (08:25→21:19)
[2022-01-15] MEDS: Insulin DETEMIR 100 UNIT/ML X5UNITS SUBQ SCH ×2 (08:27→21:22)
[2022-01-15] MEDS: Isosorbide MONOnitrate (24 HR) 30 MG TAB.ER.24H PO SCH (08:28)
[2022-01-15] MEDS: Loratadine 10 MG TABLET PO SCH (08:29)
[2022-01-15] MEDS: Multivit/Ca/Min/Fe/FA 1 TAB TABLET PO SCH (08:29)
[2022-01-15] MEDS: Sennosides/Docusate Sodium TABLET PO SCH (08:29)
[2022-01-15] MEDS: carvediloL 6.25 MG TABLET PO SCH ×2 (08:29→16:43)
[2022-01-15] MEDS: Aspirin 81 MG TAB.CHEW PO SCH (08:29)
[2022-01-15] MEDS: Sucralfate 1 GM TABLET PO SCH ×2 (08:29→21:19)
[2022-01-15] MEDS: DilTIAZem CD (24hr) 120 MG CAP.ER.24H PO SCH (08:29)
[2022-01-15] MEDS: Cholecalciferol (D-3) 1,000 UNIT (25MCG) TABLET PO SCH (08:29)
[2022-01-15] MEDS: Nystatin SUSP 5 ML UD.LIQ PO SCH ×4 (08:30→21:22)
[2022-01-15] MEDS: Pantoprazole 40 MG VIAL IVP SCH (08:32)
[2022-01-15] MEDS: Bumetanide 1 MG TABLET PO SCH ×2 (13:35→21:24)
[2022-01-15] MEDS: *HR* HYDROcodone/Acet 5/325 mg TABLET PO PRN (21:15)
[2022-01-15] MEDS: Melatonin 3 MG TABLET PO SCH (21:19)
[2022-01-16 02:30] LABS: Hemoglobin 7.4 g/dL (11.5-15.4); Monocytes % 9.3 %
[2022-01-16 02:31] LABS: Basophils # 0.1 K/mcL (0.0-0.2); Basophils % 0.9 %; Eosinophils # 0.3 K/mcL (0.0-0.6); Hematocrit 23.2 % (35.3-44.9); Immature Platelets 2.3 % (1.1-6.1); Lymphocytes # 0.6 K/mcL (0.6-4.6); Lymphocytes % 9.4 %; Mean Corpuscular HGB Conc 31.9 g/dL (31.6-35.5); Mean Corpuscular Hemoglobin 28.5 pg (28.0-33.3); Mean Corpuscular Volume 89.2 fL (83.0-100.0); Monocytes # 0.6 K/mcL (0.0-1.3); Neutrophils # 4.8 K/mcL (1.6-8.9); Platelet Count 187 K/mcL (140-400); Segmented Neutrophils % 70.4 %; White Blood Count 6.8 K/mcL (4.3-11.1)
[2022-01-16 02:49] LABS: Calcium 8.9 mg/dL (8.6-10.3); Potassium 4.8 mEq/L (3.5-5.1)
[2022-01-16 03:08] LABS: Anisocytosis 1+ (Not Present); Platelet Estimate Normal (Normal)
[2022-01-16] MEDS: Ipratropium/Albuterol Neb 3 ML IH SCH ×4 (04:27→22:14)
[2022-01-16] MEDS: Pantoprazole 40 MG VIAL IVP SCH (08:03)
[2022-01-16] MEDS: Isosorbide MONOnitrate (24 HR) 30 MG TAB.ER.24H PO SCH (08:04)
[2022-01-16] MEDS: Sennosides/Docusate Sodium TABLET PO SCH (08:04)
[2022-01-16] MEDS: Multivit/Ca/Min/Fe/FA 1 TAB TABLET PO SCH (08:04)
[2022-01-16] MEDS: Aspirin 81 MG TAB.CHEW PO SCH (08:04)
[2022-01-16] MEDS: Cholecalciferol (D-3) 1,000 UNIT (25MCG) TABLET PO SCH (08:04)
[2022-01-16] MEDS: DilTIAZem CD (24hr) 120 MG CAP.ER.24H PO SCH (08:04)
[2022-01-16] MEDS: Bumetanide 1 MG TABLET PO SCH ×2 (08:04→17:05)
[2022-01-16] MEDS: Loratadine 10 MG TABLET PO SCH (08:05)
[2022-01-16] MEDS: carvediloL 6.25 MG TABLET PO SCH ×2 (08:05→17:05)
[2022-01-16] MEDS: Sucralfate 1 GM TABLET PO SCH ×2 (08:05→20:53)
[2022-01-16] MEDS: Insulin LISPRO 300 UNITS/3 ML VIAL SUBQ SCH ×7 (08:05→20:56)
[2022-01-16] MEDS: Nystatin Ointment 15 GM TUBE TP SCH ×4 (08:09→20:56)
[2022-01-16] MEDS: Nystatin SUSP 5 ML UD.LIQ PO SCH ×4 (08:09→20:53)
[2022-01-16] MEDS: Insulin DETEMIR 100 UNIT/ML X5UNITS SUBQ SCH ×2 (08:10→20:54)
[2022-01-16] MEDS: Gabapentin 100 MG CAPSULE PO SCH ×2 (11:49→20:54)
[2022-01-16] MEDS ORDERED: Darbepoetin 100 MCG/0.5 ML SYRINGE SQ SCH (16:30)
[2022-01-16] MEDS: *HR* HYDROcodone/Acet 5/325 mg TABLET PO PRN (18:31)
[2022-01-16] MEDS: Melatonin 3 MG TABLET PO SCH (20:54)
[2022-01-17] MEDS: Ipratropium/Albuterol Neb 3 ML IH SCH ×4 (04:13→22:07)
[2022-01-17] MEDS: *HR* HYDROcodone/Acet 5/325 mg TABLET PO PRN (04:50)
[2022-01-17 06:06] LABS: Basophils # 0.1 K/mcL (0.0-0.2); Basophils % 0.7 %; Eosinophils # 0.4 K/mcL (0.0-0.6); Eosinophils % 5.6 %; Hematocrit 23.4 % (35.3-44.9); Hemoglobin 7.4 g/dL (11.5-15.4); Immature Granulocytes % 4.5 % (0-4); Immature Platelets 2.7 % (1.1-6.1); Lymphocytes # 0.6 K/mcL (0.6-4.6); Lymphocytes % 8.7 %; Mean Corpuscular HGB Conc 31.6 g/dL (31.6-35.5); Mean Corpuscular Volume 88.6 fL (83.0-100.0); Monocytes # 0.6 K/mcL (0.0-1.3); Monocytes % 8.2 %; Neutrophils # 5.3 K/mcL (1.6-8.9); Platelet Count 173 K/mcL (140-400); Red Blood Count 2.64 M/mcL (3.82-4.97); Red Cell Distribution Width 16.7 % (11.5-14.5); Segmented Neutrophils % 72.3 %; White Blood Count 7.3 K/mcL (4.3-11.1)
[2022-01-17 06:25] LABS: Potassium 5.4 mEq/L (3.5-5.1)
[2022-01-17] MEDS: Insulin LISPRO 300 UNITS/3 ML VIAL SUBQ SCH ×7 (08:10→20:06)
[2022-01-17] MEDS: Bumetanide 1 MG TABLET PO SCH ×2 (08:11→17:28)
[2022-01-17] MEDS: carvediloL 6.25 MG TABLET PO SCH ×2 (08:11→17:28)
[2022-01-17] MEDS: Nystatin Ointment 15 GM TUBE TP SCH ×4 (08:11→20:06)
[2022-01-17] MEDS: Insulin DETEMIR 100 UNIT/ML X5UNITS SUBQ SCH ×2 (08:11→20:47)
[2022-01-17] MEDS: *HR* Dextrose 50 % in Water (Syg) 50 ML SYRINGE IVP PRN (08:16)
[2022-01-17] MEDS: Sennosides/Docusate Sodium TABLET PO SCH (08:16)
[2022-01-17] MEDS: Gabapentin 100 MG CAPSULE PO SCH ×2 (08:17→20:06)
[2022-01-17] MEDS: Sucralfate 1 GM TABLET PO SCH ×2 (08:17→20:06)
[2022-01-17] MEDS: Cholecalciferol (D-3) 1,000 UNIT (25MCG) TABLET PO SCH (08:17)
[2022-01-17] MEDS: Pantoprazole 40 MG VIAL IVP SCH (08:17)
[2022-01-17] MEDS: Nystatin SUSP 5 ML UD.LIQ PO SCH ×4 (08:17→20:11)
[2022-01-17] MEDS: Multivit/Ca/Min/Fe/FA 1 TAB TABLET PO SCH (08:17)
[2022-01-17] MEDS: Loratadine 10 MG TABLET PO SCH (08:17)
[2022-01-17] MEDS: Aspirin 81 MG TAB.CHEW PO SCH (08:17)
[2022-01-17] MEDS ORDERED: 0.9 % Sodium Chloride 250 ML IVC PRN (09:10)
[2022-01-17] MEDS ORDERED: *HR* Heparin 10,000 UNIT/10 ML VIAL IV PRN (09:10)
[2022-01-17] MEDS: DilTIAZem CD (24hr) 120 MG CAP.ER.24H PO SCH (14:54)
[2022-01-17] MEDS: Isosorbide MONOnitrate (24 HR) 30 MG TAB.ER.24H PO SCH (14:54)
[2022-01-17] MEDS: Melatonin 3 MG TABLET PO SCH (20:05)
[2022-01-18] MEDS: Ipratropium/Albuterol Neb 3 ML IH SCH ×4 (03:52→22:09)
[2022-01-18 05:57] LABS: Eosinophils % 4.3 %; Hematocrit 23.6 % (35.3-44.9); Hemoglobin 7.3 g/dL (11.5-15.4); Mean Corpuscular HGB Conc 30.9 g/dL (31.6-35.5); Red Cell Distribution Width 16.6 % (11.5-14.5)
[2022-01-18 05:59] LABS: Basophils # 0.1 K/mcL (0.0-0.2); Basophils % 0.8 %; Eosinophils # 0.3 K/mcL (0.0-0.6); Immature Granulocytes % 6.8 % (0-4); Immature Platelets 2.8 % (1.1-6.1); Lymphocytes # 0.4 K/mcL (0.6-4.6); Lymphocytes % 6.2 %; Mean Corpuscular Volume 90.4 fL (83.0-100.0); Monocytes # 0.5 K/mcL (0.0-1.3); Monocytes % 7.9 %; Neutrophils # 4.7 K/mcL (1.6-8.9); Platelet Count 154 K/mcL (140-400); Red Blood Count 2.61 M/mcL (3.82-4.97); White Blood Count 6.3 K/mcL (4.3-11.1)
[2022-01-18 06:15] LABS: Calcium 8.6 mg/dL (8.6-10.3)
[2022-01-18] MEDS: Insulin LISPRO 300 UNITS/3 ML VIAL SUBQ SCH ×7 (07:21→20:59)
[2022-01-18] MEDS: Bumetanide 1 MG TABLET PO SCH ×2 (07:22→17:06)
[2022-01-18] MEDS: Nystatin SUSP 5 ML UD.LIQ PO SCH (07:22)
[2022-01-18] MEDS: Isosorbide MONOnitrate (24 HR) 30 MG TAB.ER.24H PO SCH (07:22)
[2022-01-18] MEDS: Multivit/Ca/Min/Fe/FA 1 TAB TABLET PO SCH (07:22)
[2022-01-18] MEDS: Sucralfate 1 GM TABLET PO SCH ×2 (07:22→20:59)
[2022-01-18] MEDS: Pantoprazole 40 MG VIAL IVP SCH (07:22)
[2022-01-18] MEDS: Gabapentin 100 MG CAPSULE PO SCH ×3 (07:22→21:00)
[2022-01-18] MEDS: Aspirin 81 MG TAB.CHEW PO SCH (07:22)
[2022-01-18] MEDS: Sennosides/Docusate Sodium TABLET PO SCH (07:23)
[2022-01-18] MEDS: Loratadine 10 MG TABLET PO SCH (07:23)
[2022-01-18] MEDS: Nystatin Ointment 15 GM TUBE TP SCH ×4 (07:23→21:00)
[2022-01-18] MEDS: DilTIAZem CD (24hr) 120 MG CAP.ER.24H PO SCH (07:23)
[2022-01-18] MEDS: carvediloL 6.25 MG TABLET PO SCH ×2 (07:23→17:06)
[2022-01-18] MEDS: Cholecalciferol (D-3) 1,000 UNIT (25MCG) TABLET PO SCH (07:23)
[2022-01-18] MEDS: Insulin DETEMIR 100 UNIT/ML X5UNITS SUBQ SCH ×2 (07:32→21:00)
[2022-01-18] MEDS ORDERED: *HR* OxyCODONE Immed Rel 5 MG TABLET PO ONE (13:38)
[2022-01-18] MEDS: Melatonin 3 MG TABLET PO SCH (21:00)
[2022-01-19] MEDS: Ipratropium/Albuterol Neb 3 ML IH SCH ×3 (04:13→15:30)
[2022-01-19 04:19] LABS: Calcium 8.8 mg/dL (8.6-10.3); Potassium 5.3 mEq/L (3.5-5.1)
[2022-01-19 06:52] VITALS: PULSE 76
[2022-01-19 07:18] LABS: Basophils # 0.1 K/mcL (0.0-0.2); Basophils % 1.2 %; Eosinophils # 0.3 K/mcL (0.0-0.6); Eosinophils % 4.3 %; Hematocrit 23.2 % (35.3-44.9); Hemoglobin 7.2 g/dL (11.5-15.4); Immature Platelets 3.7 % (1.1-6.1); Lymphocytes # 0.7 K/mcL (0.6-4.6); Lymphocytes % 8.4 %; Mean Corpuscular Hemoglobin 28.1 pg (28.0-33.3); Mean Corpuscular Volume 90.6 fL (83.0-100.0); Monocytes # 0.6 K/mcL (0.0-1.3); Monocytes % 7.3 %; Neutrophils # 5.3 K/mcL (1.6-8.9); Platelet Count 142 K/mcL (140-400); Red Blood Count 2.56 M/mcL (3.82-4.97); Red Cell Distribution Width 16.5 % (11.5-14.5); Segmented Neutrophils % 67.8 %; White Blood Count 7.8 K/mcL (4.3-11.1)
[2022-01-19 07:20] LABS: Platelet Estimate Normal (Normal)
[2022-01-19] MEDS: Isosorbide MONOnitrate (24 HR) 30 MG TAB.ER.24H PO SCH (08:39)
[2022-01-19] MEDS: carvediloL 6.25 MG TABLET PO SCH (08:39)
[2022-01-19] MEDS: Insulin LISPRO 300 UNITS/3 ML VIAL SUBQ SCH ×4 (08:41→12:49)
[2022-01-19] MEDS: Pantoprazole 40 MG VIAL IVP SCH (08:43)
[2022-01-19] MEDS: Multivit/Ca/Min/Fe/FA 1 TAB TABLET PO SCH (08:43)
[2022-01-19] MEDS: Bumetanide 1 MG TABLET PO SCH (08:43)
[2022-01-19] MEDS: Loratadine 10 MG TABLET PO SCH (08:43)
[2022-01-19] MEDS: Sucralfate 1 GM TABLET PO SCH (08:44)
[2022-01-19] MEDS: Cholecalciferol (D-3) 1,000 UNIT (25MCG) TABLET PO SCH (08:44)
[2022-01-19] MEDS: Aspirin 81 MG TAB.CHEW PO SCH (08:44)
[2022-01-19] MEDS: Sennosides/Docusate Sodium TABLET PO SCH (08:44)
[2022-01-19] MEDS: Gabapentin 100 MG CAPSULE PO SCH ×2 (08:44→13:39)
[2022-01-19] MEDS: DilTIAZem CD (24hr) 120 MG CAP.ER.24H PO SCH (08:44)
[2022-01-19] MEDS: Insulin DETEMIR 100 UNIT/ML X5UNITS SUBQ SCH (09:07)
[2022-01-19] MEDS: Nystatin Ointment 15 GM TUBE TP SCH ×2 (10:00→12:49)
[2022-01-19] MEDS ORDERED: 0.9 % Sodium Chloride 250 ML IVC PRN (12:20)
[2022-01-19] MEDS ORDERED: *HR* Heparin 10,000 UNIT/10 ML VIAL IV PRN (12:20)
[2022-01-19] MEDS ORDERED: Moderna Covid-19 Vaccine 100MCG/0.5mL IM ONE (14:37)
[2022-01-19 15:33] VITALS: O2SAT 99
[2022-01-19 15:52] LABS: Calcium 8.5 mg/dL (8.6-10.3); Potassium 4.2 mEq/L (3.5-5.1)
[2022-01-19 22:08] VITALS: BP 141/86; TEMP 98.1
== END 2022-01-19 17:13 | DRG 291 ==
LOC: EMEROOARM 12:46 → 2ANU 12:46 → SUATTDRO 19:57 → 2ANU 20:35 → ICNU 12-22 14:34 → 3ANU 12-24 10:11 → 2NNU 12-26 10:12 → 2NENU 01-04 16:55
PROVIDERS: ADMIT Internal Medicine; ATTEND General Practice
PROC: IRPERMA (2022-01-06 12:00)
PROC: ENDOEBX (2022-01-14 08:30)

== ENCOUNTER 2022-05-21 15:02 | Inpatient (IN) ==
[2022-05-21 16:16] LABS: Basophils # 0.1 K/mcL (0.0-0.2); Basophils % 0.7 %; Eosinophils # 0.1 K/mcL (0.0-0.6); Eosinophils % 0.7 %; Hematocrit 27.8 % (35.3-44.9); Hemoglobin 8.6 g/dL (11.5-15.4); Immature Granulocytes % 1.8 % (0-4); Lymphocytes # 0.6 K/mcL (0.6-4.6); Lymphocytes % 6.8 %; Mean Corpuscular HGB Conc 30.9 g/dL (31.6-35.5); Mean Corpuscular Hemoglobin 29.1 pg (28.0-33.3); Mean Corpuscular Volume 93.9 fL (83.0-100.0); Mean Platelet Volume 12.7 fL (9.4-12.4); Monocytes # 0.7 K/mcL (0.0-1.3); Monocytes % 7.6 %; Neutrophils # 7.3 K/mcL (1.6-8.9); Platelet Count 113 K/mcL (140-400); Red Blood Count 2.96 M/mcL (3.82-4.97); Red Cell Distribution Width 15.9 % (11.5-14.5); Segmented Neutrophils % 82.4 %; White Blood Count 8.8 K/mcL (4.3-11.1)
[2022-05-21 16:16] LABS: VBG HCO3 32 mEq/L (21-27); VBG PCO2 57 mmHg (41-51); VBG PH 7.37 pH Units (7.32-7.42); VBG PO2 45 mmHg (25-50)
[2022-05-21 16:38] LABS: Alanine Aminotransferase 11 Units/L (7-52); Albumin 3.6 g/dL (3.5-5.7); Alkaline Phosphatase 69 Units/L (34-104); Aspartate Amino Transferase 13 Units/L (13-39); BUN/Creatinine Ratio 10 (6-26); Bilirubin,Direct 0.1 mg/dL (0.0-0.2); Bilirubin,Indirect 0.5 mg/dL (0.0-1.0); Bilirubin,Total 0.6 mg/dL (0.3-1.0); Blood Urea Nitrogen 37 mg/dL (8-23); Calcium 9.6 mg/dL (8.6-10.3); Carbon Dioxide 30 mEq/L (23-29); Chloride 92 mEq/L (98-107); Globulin 3.6 g/dL (2.4-3.5); Glucose 264 mg/dL (70-105); Osmolality,Calculated 292 (280-300); Potassium 4.9 mEq/L (3.5-5.1); Sodium 132 mEq/L (136-145); Total Protein 7.2 g/dL (6.4-8.9); Troponin I < 0.03 ng/mL (< 0.04)
[2022-05-21 17:04] LABS: Influenza A PCR Negative (Negative); Influenza B PCR Negative (Negative); Resp. Syncytial Virus PCR Negative (Negative)
[2022-05-21 17:05] LABS: SARS-CoV-2 by PCR (In House) Negative (Negative)
[2022-05-21] MEDS ORDERED: Furosemide 40 MG/4 ML VIAL IVP ONE (17:08)
[2022-05-21] MEDS ORDERED: Ipratropium/Albuterol Neb 3 ML IH PRN (18:26)
[2022-05-21] MEDS ORDERED: Albumin Human 5% 12.5 GM/250 ML IV.SOLN IVPB ONE (18:45)
[2022-05-21] MEDS ORDERED: Naloxone 0.4 MG/ML INJ IVP PRN (19:46)
[2022-05-21] MEDS ORDERED: Ondansetron 4 MG/2 ML VIAL IVP PRN (19:46)
[2022-05-21] MEDS ORDERED: D5% in Water 1,000 ML IVC PRN (19:49)
[2022-05-21] MEDS ORDERED: Dextrose Gel 15 GM/37.5 ML TUBE PO PRN ×2 (19:49)
[2022-05-21] MEDS ORDERED: *HR* Dextrose 50 % in Water (Syg) 50 ML SYRINGE IVP PRN (19:49)
[2022-05-21] MEDS: *HR* Heparin 5,000 UNIT/ML VIAL SQ SCH (21:28)
[2022-05-21] MEDS: Insulin LISPRO 300 UNITS/3 ML VIAL SUBQ SCH (21:30)
[2022-05-22] MEDS: *HR* Heparin 5,000 UNIT/ML VIAL SQ SCH ×3 (06:26→20:34)
[2022-05-22] MEDS: Insulin LISPRO 300 UNITS/3 ML VIAL SUBQ SCH ×4 (08:23→20:34)
[2022-05-22 10:05] LABS: White Blood Count 8.3 K/mcL (4.3-11.1)
[2022-05-22 10:06] LABS: Basophils # 0.1 K/mcL (0.0-0.2); Basophils % 0.8 %; Eosinophils # 0.1 K/mcL (0.0-0.6); Eosinophils % 0.8 %; Hematocrit 25.5 % (35.3-44.9); Hemoglobin 8.1 g/dL (11.5-15.4); Immature Granulocytes % 1.3 % (0-4); Lymphocytes # 0.4 K/mcL (0.6-4.6); Lymphocytes % 5.3 %; Mean Corpuscular HGB Conc 31.8 g/dL (31.6-35.5); Mean Corpuscular Hemoglobin 29.1 pg (28.0-33.3); Mean Corpuscular Volume 91.7 fL (83.0-100.0); Mean Platelet Volume 11.2 fL (9.4-12.4); Monocytes # 0.5 K/mcL (0.0-1.3); Monocytes % 6.2 %; Neutrophils # 7.1 K/mcL (1.6-8.9); Platelet Count 189 K/mcL (140-400); Red Blood Count 2.78 M/mcL (3.82-4.97); Red Cell Distribution Width 15.4 % (11.5-14.5); Segmented Neutrophils % 85.6 %
[2022-05-22] MEDS ORDERED: *HR* OxyCODONE Immed Rel 5 MG TABLET PO STA (10:14)
[2022-05-22 10:24] LABS: Calcium 9.2 mg/dL (8.6-10.3); Magnesium 2.1 mg/dL (1.6-2.6); Phosphorous 4.5 mg/dL (2.7-4.5); Potassium 5.1 mEq/L (3.5-5.1)
[2022-05-22 10:36] LABS: Thyroid Stimulating Hormone 1.983 mcIU/mL (0.340-5.600)
[2022-05-22] MEDS: Gabapentin 100 MG CAPSULE PO SCH ×3 (10:42→20:34)
[2022-05-22] MEDS: cefTRIAXone 2,000 MG in 0.9 % Sodium Chloride 20 ML IVP SCH (10:44)
[2022-05-22] MEDS ORDERED: *HR* Heparin 10,000 UNIT/10 ML VIAL IV PRN (11:18)
[2022-05-22] MEDS ORDERED: 0.9 % Sodium Chloride 250 ML IVC PRN (11:18)
[2022-05-22] MEDS ORDERED: 0.9 % Sodium Chloride 2,000 ML PRIME SCH (11:30)
[2022-05-22 11:35] LABS: Bilirubin,Urine Negative (Negative); Blood,Urine Negative (Negative); Clarity,Urine Ex.Turbid (Clear); Color,Urine Yellow (Yellow); Glucose,Urine (UA) Normal (Normal); Ketones,Urine Trace mg/dL (Negative); Leukocyte Esterase,Urine Trace (Negative); Nitrite,Urine Negative (Negative); PH,Urine 7.5 pH Units (5.0-8.0); Protein,Urine >=300 mg/dL (Neg-Trace); Specific Gravity,Urine 1.021 (1.010-1.025)
[2022-05-22 11:37] LABS: Squamous Epithelial Cell,Urine Moderate per hpf (None-Few); WBC,Urine 30-50 per hpf (0-3)
[2022-05-22 11:39] LABS: Amorphous Sediment,Urine Many per hpf (None-Few); Bacteria,Urine Many per hpf (None-Few)
[2022-05-22 12:16] LABS: Adenovirus Not Detected (Not Detect); Bordetella Pertussis Not Detected (Not Detect); Coronavirus 229E Not Detected (Not Detect); Coronavirus HKU1 Not Detected (Not Detect); Coronavirus NL63 Not Detected (Not Detect); Coronavirus OC43 Not Detected (Not Detect); Human Metapneumovirus Not Detected (Not Detect); Human Rhinovirus/Enterovirus Not Detected (Not Detect); Influenza A Subtype 2009 H1 Not Detected (Not Detect); Influenza B Not Detected (Not Detect); Parainfluenza Virus 1 Not Detected (Not Detect); Parainfluenza Virus 2 Not Detected (Not Detect); Parainfluenza Virus 3 Not Detected (Not Detect); Parainfluenza Virus 4 Not Detected (Not Detect); Respiratory Syncytial Virus Not Detected (Not Detect); SARS-CoV-2 Not Detected (Not Detect)
[2022-05-22 12:17] LABS: Chlamydophila pneumoniae Not Detected (Not Detect); Mycoplasma pneumoniae Not Detected (Not Detect)
[2022-05-22] MEDS ORDERED: Furosemide 80 MG in 0.9 % Sodium Chloride 50 ML IV SCH (12:45)
[2022-05-22] MEDS ORDERED: Insulin DETEMIR 100 UNIT/ML X5UNITS SUBQ ONE ×2 (16:54→18:15)
[2022-05-22] MEDS: *HR* OxyCODONE Immed Rel 5 MG TABLET PO PRN ×2 (16:54→22:57)
[2022-05-22] MEDS ORDERED: Nystatin POWDER 30 GM BOTTLE TP PRN (16:59)
[2022-05-22] MEDS: Furosemide 80 MG in 0.9 % Sodium Chloride 50 ML IV SCH (17:01)
[2022-05-22] MEDS: Mometasone Furoate 100 MCG/PUFF Inhaler IH SCH (19:45)
[2022-05-22] MEDS: Sucralfate 1 GM TABLET PO SCH (20:34)
[2022-05-22] MEDS: Acetaminophen 325 MG TABLET PO PRN (22:57)
[2022-05-23 02:24] LABS: Basophils # 0.1 K/mcL (0.0-0.2); Basophils % 0.6 %; Eosinophils # 0.1 K/mcL (0.0-0.6); Eosinophils % 0.8 %; Hematocrit 23.9 % (35.3-44.9); Hemoglobin 7.5 g/dL (11.5-15.4); Immature Granulocytes % 1.5 % (0-4); Lymphocytes # 0.7 K/mcL (0.6-4.6); Lymphocytes % 7.6 %; Mean Corpuscular HGB Conc 31.4 g/dL (31.6-35.5); Mean Corpuscular Hemoglobin 29.1 pg (28.0-33.3); Mean Corpuscular Volume 92.6 fL (83.0-100.0); Mean Platelet Volume 10.9 fL (9.4-12.4); Monocytes # 0.6 K/mcL (0.0-1.3); Monocytes % 6.9 %; Neutrophils # 7.2 K/mcL (1.6-8.9); Platelet Count 188 K/mcL (140-400); Red Blood Count 2.58 M/mcL (3.82-4.97); Red Cell Distribution Width 15.3 % (11.5-14.5); Segmented Neutrophils % 82.6 %; White Blood Count 8.7 K/mcL (4.3-11.1)
[2022-05-23 02:51] LABS: Potassium 4.2 mEq/L (3.5-5.1)
[2022-05-23] MEDS: *HR* Heparin 5,000 UNIT/ML VIAL SQ SCH ×3 (04:37→20:53)
[2022-05-23] MEDS: Mometasone Furoate 100 MCG/PUFF Inhaler IH SCH ×2 (07:44→23:36)
[2022-05-23] MEDS ORDERED: 0.9 % Sodium Chloride 250 ML IVC PRN (07:46)
[2022-05-23] MEDS ORDERED: *HR* Heparin 10,000 UNIT/10 ML VIAL IV PRN (07:46)
[2022-05-23] MEDS: Insulin LISPRO 300 UNITS/3 ML VIAL SUBQ SCH ×4 (08:02→21:57)
[2022-05-23] MEDS: Sucralfate 1 GM TABLET PO SCH ×2 (08:19→20:52)
[2022-05-23] MEDS: Gabapentin 100 MG CAPSULE PO SCH ×3 (08:19→20:53)
[2022-05-23] MEDS: Aspirin 81 MG TAB.CHEW PO SCH (08:22)
[2022-05-23] MEDS: *HR* OxyCODONE Immed Rel 5 MG TABLET PO PRN (09:08)
[2022-05-23] MEDS: cefTRIAXone 2,000 MG in 0.9 % Sodium Chloride 20 ML IVP SCH (09:08)
[2022-05-23] MEDS: Furosemide 80 MG in 0.9 % Sodium Chloride 50 ML IV SCH (14:02)
[2022-05-23 17:50] LABS: A.calcoaceticus-baumannii cplx Not Detected (Not Detect); Bacteroides fragilis by PCR Not Detected (Not Detect); Candida albicans by PCR Not Detected (Not Detect); Candida auris by PCR Not Detected (Not Detect); Candida glabrata by PCR Not Detected (Not Detect); Candida krusei by PCR Not Detected (Not Detect); Candida parapsilosis by PCR Not Detected (Not Detect); Candida tropicalis by PCR Not Detected (Not Detect); Crypto. neoformans/gattii PCR Not Detected (Not Detect); Enterobacter cloacae Cmplx PCR Not Detected (Not Detect); Enterobacterales by PCR Not Detected (Not Detect); Enterococcus faecalis by PCR DETECTED (Not Detect); Enterococcus faecium by PCR Not Detected (Not Detect); Escherichia coli by PCR Not Detected (Not Detect); Klebs. pneumoniae group by PCR Not Detected (Not Detect); Klebsiella aerogenes by PCR Not Detected (Not Detect); Klebsiella oxytoca by PCR Not Detected (Not Detect); Proteus by PCR Not Detected (Not Detect); Pseudomonas aeruginosa by PCR Not Detected (Not Detect); Salmonella species by PCR Not Detected (Not Detect); Serratia marcescens by PCR Not Detected (Not Detect); Staph epidermidis by PCR Not Detected (Not Detect); Staph lugdunensis by PCR Not Detected (Not Detect); Staphylococcus aureus by PCR Not Detected (Not Detect); Staphylococcus by PCR Not Detected (Not Detect); Stenotrophomonas maltophilia Not Detected (Not Detect); Streptococcus agalactiae(B)PCR Not Detected (Not Detect); Streptococcus by PCR Not Detected (Not Detect); Streptococcus pneumoniae PCR Not Detected (Not Detect); Streptococcus pyogenes (A) PCR Not Detected (Not Detect); vanA/B Vancomycin-Resist Genes Not Detected (Not Detect)
[2022-05-23] MEDS ORDERED: Vancomycin 1,750 MG in 0.9 % Sodium Chloride 250 ML IVPB SCH (19:00)
[2022-05-23] MEDS ORDERED: Vancomycin 1,750 MG/517.5 ML IV.SOLN IVPB ONE (19:00)
[2022-05-24] MEDS: Acetaminophen 325 MG TABLET PO PRN (00:22)
[2022-05-24 03:26] LABS: Basophils % 0.5 %; Eosinophils # 0.2 K/mcL (0.0-0.6); Eosinophils % 1.9 %; Hematocrit 24.8 % (35.3-44.9); Hemoglobin 7.9 g/dL (11.5-15.4); Immature Granulocytes % 1.4 % (0-4); Lymphocytes # 0.4 K/mcL (0.6-4.6); Lymphocytes % 4.9 %; Mean Corpuscular HGB Conc 31.9 g/dL (31.6-35.5); Mean Corpuscular Volume 91.2 fL (83.0-100.0); Mean Platelet Volume 10.1 fL (9.4-12.4); Monocytes # 0.5 K/mcL (0.0-1.3); Neutrophils # 7.1 K/mcL (1.6-8.9); Platelet Count 235 K/mcL (140-400); Red Blood Count 2.72 M/mcL (3.82-4.97); Red Cell Distribution Width 15.5 % (11.5-14.5); Segmented Neutrophils % 85.3 %; White Blood Count 8.4 K/mcL (4.3-11.1)
[2022-05-24 03:46] LABS: Calcium 8.9 mg/dL (8.6-10.3); Potassium 4.2 mEq/L (3.5-5.1)
[2022-05-24] MEDS: *HR* Heparin 5,000 UNIT/ML VIAL SQ SCH ×3 (05:27→22:07)
[2022-05-24] MEDS: Insulin LISPRO 300 UNITS/3 ML VIAL SUBQ SCH ×4 (07:55→21:48)
[2022-05-24] MEDS: Sucralfate 1 GM TABLET PO SCH ×2 (07:58→22:07)
[2022-05-24] MEDS: Aspirin 81 MG TAB.CHEW PO SCH (07:58)
[2022-05-24] MEDS: *HR* OxyCODONE Immed Rel 5 MG TABLET PO PRN (07:59)
[2022-05-24] MEDS: Gabapentin 100 MG CAPSULE PO SCH ×3 (07:59→22:08)
[2022-05-24] MEDS: cefTRIAXone 2,000 MG in 0.9 % Sodium Chloride 20 ML IVP SCH (08:00)
[2022-05-24] MEDS: Furosemide 80 MG in 0.9 % Sodium Chloride 50 ML IV SCH (08:57)
[2022-05-24] MEDS: Mometasone Furoate 100 MCG/PUFF Inhaler IH SCH ×2 (10:07→21:34)
[2022-05-25] MEDS: *HR* Heparin 5,000 UNIT/ML VIAL SQ SCH ×3 (06:16→20:21)
[2022-05-25 06:36] LABS: Basophils % 0.6 %; Eosinophils # 0.3 K/mcL (0.0-0.6); Eosinophils % 4.8 %; Hematocrit 22.8 % (35.3-44.9); Hemoglobin 7.1 g/dL (11.5-15.4); Immature Granulocytes % 1.7 % (0-4); Lymphocytes # 0.5 K/mcL (0.6-4.6); Lymphocytes % 7.1 %; Mean Corpuscular HGB Conc 31.1 g/dL (31.6-35.5); Mean Corpuscular Hemoglobin 28.4 pg (28.0-33.3); Mean Corpuscular Volume 91.2 fL (83.0-100.0); Mean Platelet Volume 10.7 fL (9.4-12.4); Monocytes # 0.5 K/mcL (0.0-1.3); Monocytes % 7.1 %; Neutrophils # 5.2 K/mcL (1.6-8.9); Platelet Count 234 K/mcL (140-400); Red Cell Distribution Width 15.3 % (11.5-14.5); Segmented Neutrophils % 78.7 %; White Blood Count 6.6 K/mcL (4.3-11.1)
[2022-05-25 06:57] LABS: Phosphorous 5.1 mg/dL (2.7-4.5); Potassium 4.4 mEq/L (3.5-5.1)
[2022-05-25] MEDS ORDERED: *HR* Heparin 10,000 UNIT/10 ML VIAL IV PRN (07:32)
[2022-05-25] MEDS ORDERED: 0.9 % Sodium Chloride 250 ML IVC PRN (07:32)
[2022-05-25] MEDS: Mometasone Furoate 100 MCG/PUFF Inhaler IH SCH ×2 (07:39→21:37)
[2022-05-25] MEDS: Aspirin 81 MG TAB.CHEW PO SCH (09:02)
[2022-05-25] MEDS: Insulin LISPRO 300 UNITS/3 ML VIAL SUBQ SCH ×4 (09:03→20:21)
[2022-05-25] MEDS: Gabapentin 100 MG CAPSULE PO SCH ×3 (09:03→20:21)
[2022-05-25] MEDS: Sucralfate 1 GM TABLET PO SCH ×2 (09:03→20:21)
[2022-05-25] MEDS: *HR* OxyCODONE Immed Rel 5 MG TABLET PO PRN ×2 (09:11→20:20)
[2022-05-25] MEDS: Sennosides 8.6 MG TABLET PO SCH ×2 (13:48→20:20)
[2022-05-25] MEDS: Furosemide 80 MG in 0.9 % Sodium Chloride 50 ML IV SCH (15:06)
[2022-05-25] MEDS ORDERED: Vancomycin 1,250 MG/262.5 ML IV.SOLN IVPB ONE (16:00)
[2022-05-25] MEDS: Acetaminophen 325 MG TABLET PO PRN (20:20)
[2022-05-26] MEDS: *HR* Heparin 5,000 UNIT/ML VIAL SQ SCH ×3 (05:25→20:42)
[2022-05-26 05:43] LABS: Basophils # 0.1 K/mcL (0.0-0.2); Basophils % 0.8 %; Eosinophils # 0.4 K/mcL (0.0-0.6); Eosinophils % 5.7 %; Hematocrit 20.6 % (35.3-44.9); Hemoglobin 6.4 g/dL (11.5-15.4); Immature Granulocytes % 2.5 % (0-4); Lymphocytes # 0.6 K/mcL (0.6-4.6); Lymphocytes % 8.2 %; Mean Corpuscular HGB Conc 31.1 g/dL (31.6-35.5); Mean Corpuscular Volume 93.2 fL (83.0-100.0); Mean Platelet Volume 10.2 fL (9.4-12.4); Monocytes # 0.5 K/mcL (0.0-1.3); Monocytes % 6.8 %; Neutrophils # 5.9 K/mcL (1.6-8.9); Platelet Count 296 K/mcL (140-400); Red Blood Count 2.21 M/mcL (3.82-4.97); Red Cell Distribution Width 15.3 % (11.5-14.5); White Blood Count 7.7 K/mcL (4.3-11.1)
[2022-05-26 06:03] LABS: Calcium 9.2 mg/dL (8.6-10.3); Potassium 4.6 mEq/L (3.5-5.1)
[2022-05-26] MEDS ORDERED: 0.9 % Sodium Chloride 250 ML IVC SCH (07:15)
[2022-05-26] MEDS: Mometasone Furoate 100 MCG/PUFF Inhaler IH SCH ×2 (07:24→20:19)
[2022-05-26] MEDS: Sucralfate 1 GM TABLET PO SCH ×2 (08:44→20:17)
[2022-05-26] MEDS: Sennosides 8.6 MG TABLET PO SCH ×2 (08:44→20:17)
[2022-05-26] MEDS: Gabapentin 100 MG CAPSULE PO SCH ×3 (08:44→20:17)
[2022-05-26] MEDS: Aspirin 81 MG TAB.CHEW PO SCH (08:45)
[2022-05-26] MEDS: Insulin LISPRO 300 UNITS/3 ML VIAL SUBQ SCH ×4 (08:48→20:17)
[2022-05-26] MEDS: Furosemide 80 MG in 0.9 % Sodium Chloride 50 ML IV SCH (09:19)
[2022-05-26] MEDS ORDERED: Lidocaine Viscous Oral Soln 15 ML SOLUTION MM PRN (10:05)
[2022-05-26] MEDS ORDERED: 0.9 % Sodium Chloride 500 ML IVC ONE (10:06)
[2022-05-26] MEDS: *HR* FentaNYL (PF) 100 MCG/2 ML VIAL IVP PRN ×2 (10:35→10:40)
[2022-05-26] MEDS: *HR* Midazolam HCl 5 MG/5 ML VIAL IVP PRN ×2 (10:35→10:40)
[2022-05-26] MEDS ORDERED: 0.9 % Sodium Chloride 250 ML ONE (12:17)
[2022-05-26] MEDS ORDERED: SODIUM CHLORIDE 0.9% IVPB PRN (15:00)
[2022-05-26] MEDS ORDERED: VANCOMYCIN IVPB PRN (15:00)
[2022-05-26] MEDS ORDERED: Gentamicin 160 MG in 0.9 % Sodium Chloride 100 ML IVPB ONE (16:08)
[2022-05-26 16:49] LABS: Hematocrit 26.3 % (35.3-44.9)
[2022-05-26 16:50] LABS: Hemoglobin 8.3 g/dL (11.5-15.4)
[2022-05-26] MEDS ORDERED: Gentamicin 1 EACH in 0.9 % Sodium Chloride 100 ML IVPB PRN (18:15)
[2022-05-27 05:03] LABS: Basophils # 0.1 K/mcL (0.0-0.2); Basophils % 1.1 %; Eosinophils # 0.3 K/mcL (0.0-0.6); Eosinophils % 3.2 %; Hematocrit 26.5 % (35.3-44.9); Hemoglobin 8.2 g/dL (11.5-15.4); Immature Granulocytes % 2.8 % (0-4); Lymphocytes # 0.5 K/mcL (0.6-4.6); Lymphocytes % 6.4 %; Mean Corpuscular HGB Conc 30.9 g/dL (31.6-35.5); Mean Corpuscular Hemoglobin 28.7 pg (28.0-33.3); Mean Corpuscular Volume 92.7 fL (83.0-100.0); Mean Platelet Volume 10.7 fL (9.4-12.4); Monocytes # 0.4 K/mcL (0.0-1.3); Monocytes % 5.5 %; Neutrophils # 6.3 K/mcL (1.6-8.9); Platelet Count 248 K/mcL (140-400); Red Blood Count 2.86 M/mcL (3.82-4.97); Red Cell Distribution Width 15.2 % (11.5-14.5); White Blood Count 7.8 K/mcL (4.3-11.1)
[2022-05-27 05:22] LABS: Potassium 4.7 mEq/L (3.5-5.1)
[2022-05-27] MEDS: *HR* HYDROcodone/Acet 5/325 mg TABLET PO PRN ×2 (05:23→12:25)
[2022-05-27] MEDS: *HR* Heparin 5,000 UNIT/ML VIAL SQ SCH ×3 (05:23→21:33)
[2022-05-27] MEDS: Mometasone Furoate 100 MCG/PUFF Inhaler IH SCH ×2 (07:30→20:46)
[2022-05-27] MEDS: Insulin LISPRO 300 UNITS/3 ML VIAL SUBQ SCH ×4 (07:50→21:33)
[2022-05-27] MEDS ORDERED: *HR* Heparin 5,000 UNIT/ML VIAL ONE (08:29)
[2022-05-27] MEDS ORDERED: 0.9 % Sodium Chloride 250 ML IVC PRN (08:43)
[2022-05-27] MEDS ORDERED: *HR* Heparin 10,000 UNIT/10 ML VIAL IV PRN (08:43)
[2022-05-27] MEDS: Sennosides 8.6 MG TABLET PO SCH ×2 (13:50→21:33)
[2022-05-27] MEDS: Gabapentin 100 MG CAPSULE PO SCH ×3 (13:51→21:32)
[2022-05-27] MEDS: Sucralfate 1 GM TABLET PO SCH ×2 (13:51→21:33)
[2022-05-27] MEDS: Aspirin 81 MG TAB.CHEW PO SCH (13:52)
[2022-05-27] MEDS: Furosemide 80 MG in 0.9 % Sodium Chloride 50 ML IV SCH (13:53)
[2022-05-27] MEDS ORDERED: Vancomycin 1,250 MG/262.5 ML IV.SOLN IVPB ONE (16:00)
[2022-05-27] MEDS: *HR* OxyCODONE Immed Rel 5 MG TABLET PO PRN (18:52)
[2022-05-27] MEDS: Insulin DETEMIR 100 UNIT/ML X5UNITS SUBQ SCH (21:33)
[2022-05-28] MEDS: *HR* Heparin 5,000 UNIT/ML VIAL SQ SCH ×3 (05:14→20:49)
[2022-05-28] MEDS: Mometasone Furoate 100 MCG/PUFF Inhaler IH SCH ×2 (07:31→20:12)
[2022-05-28] MEDS: Insulin LISPRO 300 UNITS/3 ML VIAL SUBQ SCH ×4 (07:57→20:54)
[2022-05-28] MEDS: Sennosides 8.6 MG TABLET PO SCH ×2 (08:02→20:48)
[2022-05-28] MEDS: Sucralfate 1 GM TABLET PO SCH ×2 (08:03→20:48)
[2022-05-28] MEDS: Aspirin 81 MG TAB.CHEW PO SCH (08:03)
[2022-05-28] MEDS: Gabapentin 100 MG CAPSULE PO SCH ×3 (08:03→20:47)
[2022-05-28] MEDS: Insulin DETEMIR 100 UNIT/ML X5UNITS SUBQ SCH ×2 (08:06→20:55)
[2022-05-28] MEDS: Furosemide 80 MG in 0.9 % Sodium Chloride 50 ML IV SCH (09:42)
[2022-05-28 11:09] LABS: Basophils # 0.1 K/mcL (0.0-0.2); Basophils % 0.9 %; Eosinophils # 0.2 K/mcL (0.0-0.6); Eosinophils % 3.6 %; Lymphocytes # 0.5 K/mcL (0.6-4.6); Lymphocytes % 6.7 %; Mean Corpuscular HGB Conc 30.8 g/dL (31.6-35.5); Mean Corpuscular Hemoglobin 28.8 pg (28.0-33.3); Mean Corpuscular Volume 93.5 fL (83.0-100.0); Monocytes # 0.4 K/mcL (0.0-1.3); Neutrophils # 5.4 K/mcL (1.6-8.9); Platelet Count 286 K/mcL (140-400); Red Blood Count 2.78 M/mcL (3.82-4.97); Red Cell Distribution Width 15.2 % (11.5-14.5); Segmented Neutrophils % 79.8 %; White Blood Count 6.7 K/mcL (4.3-11.1)
[2022-05-28 11:27] LABS: Calcium 9.1 mg/dL (8.6-10.3); Potassium 4.7 mEq/L (3.5-5.1)
[2022-05-28] MEDS: *HR* HYDROcodone/Acet 5/325 mg TABLET PO PRN (20:48)
[2022-05-29] MEDS: *HR* Heparin 5,000 UNIT/ML VIAL SQ SCH ×3 (05:57→20:40)
[2022-05-29] MEDS: *HR* HYDROcodone/Acet 5/325 mg TABLET PO PRN ×2 (06:07→12:51)
[2022-05-29 06:23] LABS: Hematocrit 26.6 % (35.3-44.9); Hemoglobin 8.2 g/dL (11.5-15.4); Mean Corpuscular HGB Conc 30.8 g/dL (31.6-35.5); Mean Corpuscular Hemoglobin 28.7 pg (28.0-33.3); Mean Platelet Volume 10.9 fL (9.4-12.4); Platelet Count 228 K/mcL (140-400); Red Blood Count 2.86 M/mcL (3.82-4.97); Red Cell Distribution Width 15.2 % (11.5-14.5); White Blood Count 7.1 K/mcL (4.3-11.1)
[2022-05-29 06:39] LABS: Calcium 9.5 mg/dL (8.6-10.3); Potassium 5.2 mEq/L (3.5-5.1)
[2022-05-29] MEDS: Mometasone Furoate 100 MCG/PUFF Inhaler IH SCH ×2 (07:25→20:36)
[2022-05-29] MEDS: Furosemide 80 MG in 0.9 % Sodium Chloride 50 ML IV SCH (08:08)
[2022-05-29] MEDS: Insulin LISPRO 300 UNITS/3 ML VIAL SUBQ SCH ×4 (08:20→20:41)
[2022-05-29] MEDS: Gabapentin 100 MG CAPSULE PO SCH ×3 (08:24→20:40)
[2022-05-29] MEDS: Sennosides 8.6 MG TABLET PO SCH ×2 (08:24→20:40)
[2022-05-29] MEDS: Sucralfate 1 GM TABLET PO SCH ×2 (08:24→20:40)
[2022-05-29] MEDS: Aspirin 81 MG TAB.CHEW PO SCH (08:24)
[2022-05-29] MEDS: Insulin DETEMIR 100 UNIT/ML X5UNITS SUBQ SCH ×2 (08:27→20:37)
[2022-05-29] MEDS: *HR* OxyCODONE Immed Rel 5 MG TABLET PO PRN (20:39)
[2022-05-30 04:34] LABS: Hematocrit 26.7 % (35.3-44.9); Hemoglobin 8.1 g/dL (11.5-15.4); Mean Corpuscular HGB Conc 30.3 g/dL (31.6-35.5); Mean Corpuscular Hemoglobin 28.2 pg (28.0-33.3); Platelet Count 230 K/mcL (140-400); Red Blood Count 2.87 M/mcL (3.82-4.97); Red Cell Distribution Width 14.9 % (11.5-14.5); White Blood Count 6.4 K/mcL (4.3-11.1)
[2022-05-30 04:54] LABS: Calcium 9.3 mg/dL (8.6-10.3); Potassium 5.5 mEq/L (3.5-5.1)
[2022-05-30] MEDS: *HR* OxyCODONE Immed Rel 5 MG TABLET PO PRN ×2 (06:18→20:07)
[2022-05-30] MEDS: *HR* Heparin 5,000 UNIT/ML VIAL SQ SCH ×2 (06:19→17:17)
[2022-05-30] MEDS ORDERED: CeFAZolin Syr 2,000MG/20 ML 2,000 MG/20 ML SYRINGE IVPB ONE (07:38)
[2022-05-30] MEDS: Mometasone Furoate 100 MCG/PUFF Inhaler IH SCH ×2 (07:47→20:10)
[2022-05-30] MEDS ORDERED: *HR* Heparin 10,000 UNIT/10 ML VIAL IV PRN ×2 (08:19)
[2022-05-30] MEDS ORDERED: 0.9 % Sodium Chloride 250 ML IVC PRN (08:19)
[2022-05-30] MEDS ORDERED: *HR* Propofol 200 MG/20 ML VIAL IVP ONE (08:30)
[2022-05-30] MEDS: Insulin LISPRO 300 UNITS/3 ML VIAL SUBQ SCH ×4 (09:52→20:12)
[2022-05-30] MEDS ORDERED: Ketamine HCL *QUVA* 50mg (1mL) SYRINGE ONE (09:58)
[2022-05-30] MEDS ORDERED: *HR* Midazolam HCl 2 MG/2 ML VIAL ONE (09:58)
[2022-05-30] MEDS ORDERED: *HR* FentaNYL (PF) 100 MCG/2 ML VIAL ONE (09:58)
[2022-05-30] MEDS ORDERED: Lidocaine -MPF 2% 2 ML VIAL ONE (09:59)
[2022-05-30] MEDS ORDERED: Dexmedetomidine HCl 400 MCG/100 ML MLS IVC ONE (10:02)
[2022-05-30 10:42] LABS: Source,Synovial Fluid right knee
[2022-05-30] MEDS: Sennosides 8.6 MG TABLET PO SCH ×2 (12:23→20:07)
[2022-05-30] MEDS: Sucralfate 1 GM TABLET PO SCH ×2 (12:23→20:07)
[2022-05-30] MEDS: Aspirin 81 MG TAB.CHEW PO SCH (12:23)
[2022-05-30] MEDS: Insulin DETEMIR 100 UNIT/ML X5UNITS SUBQ SCH ×2 (12:26→20:13)
[2022-05-30] MEDS: Furosemide 80 MG in 0.9 % Sodium Chloride 50 ML IV SCH ×2 (12:27→17:03)
[2022-05-30] MEDS: Gabapentin 100 MG CAPSULE PO SCH ×3 (12:29→20:12)
[2022-05-30 14:53] LABS: Appearance,Synovial Fluid Bloody (Clear-Hazy); Color,Synovial Fluid Red (Straw)
[2022-05-31] MEDS: *HR* Heparin 5,000 UNIT/ML VIAL SQ SCH ×4 (00:09→20:03)
[2022-05-31 04:27] LABS: Hematocrit 25.5 % (35.3-44.9); Hemoglobin 8.1 g/dL (11.5-15.4); Mean Corpuscular HGB Conc 31.8 g/dL (31.6-35.5); Mean Corpuscular Volume 91.4 fL (83.0-100.0); Mean Platelet Volume 10.1 fL (9.4-12.4); Platelet Count 296 K/mcL (140-400); Red Blood Count 2.79 M/mcL (3.82-4.97); Red Cell Distribution Width 14.7 % (11.5-14.5); White Blood Count 6.2 K/mcL (4.3-11.1)
[2022-05-31 04:47] LABS: Calcium 8.9 mg/dL (8.6-10.3); Potassium 4.6 mEq/L (3.5-5.1)
[2022-05-31] MEDS: Mometasone Furoate 100 MCG/PUFF Inhaler IH SCH ×2 (07:44→20:18)
[2022-05-31] MEDS: Sucralfate 1 GM TABLET PO SCH ×2 (08:58→20:01)
[2022-05-31] MEDS: Aspirin 81 MG TAB.CHEW PO SCH (08:58)
[2022-05-31] MEDS: Sennosides 8.6 MG TABLET PO SCH ×2 (08:59→20:01)
[2022-05-31] MEDS: *HR* OxyCODONE Immed Rel 5 MG TABLET PO PRN (08:59)
[2022-05-31] MEDS: Gabapentin 100 MG CAPSULE PO SCH ×3 (08:59→20:01)
[2022-05-31] MEDS: Insulin DETEMIR 100 UNIT/ML X5UNITS SUBQ SCH ×2 (09:00→20:01)
[2022-05-31] MEDS: Insulin LISPRO 300 UNITS/3 ML VIAL SUBQ SCH ×4 (09:01→19:56)
[2022-05-31] MEDS: Furosemide 80 MG in 0.9 % Sodium Chloride 50 ML IV SCH (09:02)
[2022-05-31] MEDS: *HR* HYDROcodone/Acet 5/325 mg TABLET PO PRN ×2 (12:12→20:02)
[2022-06-01 04:03] LABS: Hematocrit 25.7 % (35.3-44.9); Hemoglobin 8.2 g/dL (11.5-15.4); Mean Corpuscular HGB Conc 31.9 g/dL (31.6-35.5); Mean Corpuscular Hemoglobin 28.9 pg (28.0-33.3); Mean Corpuscular Volume 90.5 fL (83.0-100.0); Mean Platelet Volume 10.7 fL (9.4-12.4); Platelet Count 221 K/mcL (140-400); Red Blood Count 2.84 M/mcL (3.82-4.97); Red Cell Distribution Width 14.5 % (11.5-14.5); White Blood Count 5.6 K/mcL (4.3-11.1)
[2022-06-01 04:57] LABS: Calcium 9.2 mg/dL (8.6-10.3); Potassium 4.8 mEq/L (3.5-5.1)
[2022-06-01] MEDS: *HR* Heparin 5,000 UNIT/ML VIAL SQ SCH ×3 (05:40→21:16)
[2022-06-01 07:08] LABS: Gentamicin,Trough 0.5 mcg/mL (0.0-4.0)
[2022-06-01] MEDS: Mometasone Furoate 100 MCG/PUFF Inhaler IH SCH ×2 (07:25→19:53)
[2022-06-01] MEDS: Insulin DETEMIR 100 UNIT/ML X5UNITS SUBQ SCH ×2 (08:49→21:30)
[2022-06-01] MEDS: Insulin LISPRO 300 UNITS/3 ML VIAL SUBQ SCH ×4 (08:51→21:30)
[2022-06-01] MEDS: Furosemide 80 MG in 0.9 % Sodium Chloride 50 ML IV SCH (08:52)
[2022-06-01] MEDS: Aspirin 81 MG TAB.CHEW PO SCH (08:53)
[2022-06-01] MEDS: Sennosides 8.6 MG TABLET PO SCH ×2 (08:53→21:15)
[2022-06-01] MEDS: Sucralfate 1 GM TABLET PO SCH ×2 (08:54→21:15)
[2022-06-01] MEDS: Gabapentin 100 MG CAPSULE PO SCH ×3 (08:55→21:15)
[2022-06-01] MEDS ORDERED: 0.9 % Sodium Chloride 250 ML IVC PRN (09:21)
[2022-06-01] MEDS ORDERED: *HR* Heparin 10,000 UNIT/10 ML VIAL IV PRN (09:21)
[2022-06-01] MEDS: *HR* HYDROcodone/Acet 5/325 mg TABLET PO PRN ×2 (12:36→21:15)
[2022-06-01] MEDS ORDERED: Heparin 1,000 UNITS/500 mL 500 ML ONE (13:52)
[2022-06-01] MEDS ORDERED: Lidocaine/EPI 1:100k 1% 50 ML VIAL ONE (13:52)
[2022-06-01] MEDS ORDERED: Gentamicin 40 MG in 0.9 % Sodium Chloride 100 ML IVPB ONE (16:00)
[2022-06-01] MEDS: *HR* OxyCODONE Immed Rel 5 MG TABLET PO PRN (23:45)
[2022-06-02 06:35] LABS: Potassium 4.3 mEq/L (3.5-5.1)
[2022-06-02 06:36] LABS: Hematocrit 27.1 % (35.3-44.9); Hemoglobin 8.5 g/dL (11.5-15.4); Mean Corpuscular HGB Conc 31.4 g/dL (31.6-35.5); Mean Corpuscular Hemoglobin 28.7 pg (28.0-33.3); Mean Corpuscular Volume 91.6 fL (83.0-100.0); Mean Platelet Volume 10.3 fL (9.4-12.4); Platelet Count 281 K/mcL (140-400); Red Blood Count 2.96 M/mcL (3.82-4.97); Red Cell Distribution Width 14.6 % (11.5-14.5); White Blood Count 6.1 K/mcL (4.3-11.1)
[2022-06-02] MEDS: *HR* Heparin 5,000 UNIT/ML VIAL SQ SCH ×2 (07:30→22:00)
[2022-06-02] MEDS: Insulin LISPRO 300 UNITS/3 ML VIAL SUBQ SCH ×2 (07:30→21:58)
[2022-06-02] MEDS: Mometasone Furoate 100 MCG/PUFF Inhaler IH SCH ×2 (07:47→21:02)
[2022-06-02] MEDS ORDERED: *HR* Midazolam HCl 2 MG/2 ML VIAL IVP ONE (08:36)
[2022-06-02] MEDS ORDERED: *HR* FentaNYL (PF) 100 MCG/2 ML VIAL IVP ONE ×2 (08:36→15:07)
[2022-06-02] MEDS ORDERED: *HR* Heparin 5,000 UNIT/ML VIAL ONE (08:39)
[2022-06-02] MEDS ORDERED: *HR* FentaNYL (PF) 100 MCG/2 ML VIAL ONE ×2 (08:42→11:30)
[2022-06-02] MEDS ORDERED: *HR* Midazolam HCl 2 MG/2 ML VIAL ONE (08:42)
[2022-06-02 09:09] LABS: INR 1.1; Prothrombin Time 12.8 Seconds (9.4-12.1)
[2022-06-02] MEDS ORDERED: Lidocaine -MPF 2% 2 ML VIAL ONE ×3 (09:24→10:01)
[2022-06-02] MEDS ORDERED: *HR* Propofol 200 MG/20 ML VIAL IVP ONE (09:24)
[2022-06-02] MEDS ORDERED: Ondansetron 4 MG/2 ML VIAL ONE (09:24)
[2022-06-02] MEDS ORDERED: Acetaminophen IV 1,000 MG/100 ML BAG IVPB ONE (09:26)
[2022-06-02] MEDS ORDERED: Famotidine 20 MG/2 ML VIAL IVP ONE (09:26)
[2022-06-02] MEDS ORDERED: 0.9 % Sodium Chloride 1,000 ML IVC SCH ×2 (09:45→16:43)
[2022-06-02] MEDS ORDERED: Heparin 1,000 UNITS/500 mL 500 ML ONE (09:55)
[2022-06-02] MEDS ORDERED: Ethanol\\Acetic Acid\\Na Ace\\Ben 1,000 ML IRRIG.SOLN IR ONE (09:59)
[2022-06-02] MEDS ORDERED: CeFAZolin Syr 3,000MG/30 ML 3,000 MG/30 ML SYRINGE IVPB ONE ×2 (10:17→12:00)
[2022-06-02] MEDS ORDERED: Povidone-Iodine 45 ML, Sodium Chloride IRRigation 1,000 ML IR ONE (10:25)
[2022-06-02] MEDS ORDERED: TOTAL JOINT MIXTURE (100ML) INTRAART ONE (10:25)
[2022-06-02] MEDS ORDERED: *HR* Phenylephrine 10 MG/ML VIAL ONE (11:04)
[2022-06-02] MEDS ORDERED: *HR* HYDROmorphone PF 0.5 MG/0.5 ML SYRINGE IVP PRN ×2 (12:13→16:43)
[2022-06-02] MEDS ORDERED: Ondansetron 4 MG/2 ML VIAL IVP PRN ×2 (12:13→16:43)
[2022-06-02] MEDS ORDERED: Furosemide 40 MG/4 ML VIAL IVP ONE (12:28)
[2022-06-02] MEDS ORDERED: Furosemide 40 MG/4 ML VIAL ONE (12:31)
[2022-06-02 14:23] LABS: ABG Base Excess 1 mEq/L (-2 to 3); ABG Chloride 97 mEq/L (98-107); ABG Glucose 239 mg/dL (60-95); ABG HCO3 28 mEq/L (21-27); ABG Ionized Calcium 1.18 mmol/L (1.15-1.35); ABG Oxygen Saturation 96 % (95-98); ABG PCO2 51 mmHg (35-45); ABG PH 7.35 pH Units (7.32-7.45); ABG PO2 91 mmHg (85-104); ABG TCO2 29 mEq/L (20-26)
[2022-06-02] MEDS ORDERED: Norepinephrine 4 MG/254 ML IV.SOLN IVC SCH (14:45)
[2022-06-02] MEDS: Sucralfate 1 GM TABLET PO SCH ×2 (16:24→21:58)
[2022-06-02] MEDS: Aspirin 81 MG TAB.CHEW PO SCH (16:24)
[2022-06-02] MEDS: *HR* OxyCODONE Immed Rel 5 MG TABLET PO PRN ×2 (16:40→22:54)
[2022-06-02] MEDS ORDERED: Ipratropium/Albuterol Neb 3 ML IH PRN (16:43)
[2022-06-02] MEDS ORDERED: *HR* Heparin 10,000 UNIT/10 ML VIAL IV PRN (16:43)
[2022-06-02] MEDS ORDERED: 0.9 % Sodium Chloride 250 ML IVC PRN (16:43)
[2022-06-02] MEDS ORDERED: 0.9 % Sodium Chloride 250 ML IVC SCH (16:43)
[2022-06-02] MEDS ORDERED: Acetaminophen 325 MG TABLET PO PRN (16:43)
[2022-06-02] MEDS ORDERED: Dextrose Gel 15 GM/37.5 ML TUBE PO PRN ×2 (16:43)
[2022-06-02] MEDS ORDERED: Nystatin POWDER 30 GM BOTTLE TP PRN (16:43)
[2022-06-02] MEDS ORDERED: *HR* Dextrose 50 % in Water (Syg) 50 ML SYRINGE IVP PRN (16:43)
[2022-06-02] MEDS ORDERED: D5% in Water 1,000 ML IVC PRN (16:43)
[2022-06-02] MEDS ORDERED: Gentamicin 1 EACH in 0.9 % Sodium Chloride 100 ML IVPB PRN (16:43)
[2022-06-02] MEDS ORDERED: 0.9 % Sodium Chloride 2,000 ML PRIME SCH (16:43)
[2022-06-02] MEDS ORDERED: Naloxone 0.4 MG/ML INJ IVP PRN (16:43)
[2022-06-02] MEDS: *HR* HYDROcodone/Acet 5/325 mg TABLET PO PRN (19:40)
[2022-06-02] MEDS: Sennosides 8.6 MG TABLET PO SCH (21:57)
[2022-06-02] MEDS: Insulin DETEMIR 100 UNIT/ML X5UNITS SUBQ SCH (21:58)
[2022-06-02] MEDS: Gabapentin 100 MG CAPSULE PO SCH (21:58)
[2022-06-03] MEDS ORDERED: Melatonin 3 MG TABLET PO PRN (00:25)
[2022-06-03 02:24] LABS: Basophils # 0.1 K/mcL (0.0-0.2); Basophils % 0.9 %; Eosinophils % 0.3 %; Hemoglobin 9.8 g/dL (11.5-15.4); Immature Granulocytes % 2.2 % (0-4); Lymphocytes # 0.4 K/mcL (0.6-4.6); Lymphocytes % 3.5 %; Mean Corpuscular HGB Conc 32.7 g/dL (31.6-35.5); Mean Corpuscular Hemoglobin 29.3 pg (28.0-33.3); Mean Corpuscular Volume 89.8 fL (83.0-100.0); Monocytes # 0.5 K/mcL (0.0-1.3); Monocytes % 4.7 %; Platelet Count 267 K/mcL (140-400); Red Blood Count 3.34 M/mcL (3.82-4.97); Red Cell Distribution Width 14.5 % (11.5-14.5); Segmented Neutrophils % 88.4 %
[2022-06-03 02:25] LABS: White Blood Count 10.2 K/mcL (4.3-11.1)
[2022-06-03 02:47] LABS: Calcium 9.1 mg/dL (8.6-10.3); Potassium 5.1 mEq/L (3.5-5.1)
[2022-06-03] MEDS: *HR* OxyCODONE Immed Rel 5 MG TABLET PO PRN (04:58)
[2022-06-03] MEDS: *HR* Heparin 5,000 UNIT/ML VIAL SQ SCH ×3 (04:59→22:11)
[2022-06-03] MEDS: Mometasone Furoate 100 MCG/PUFF Inhaler IH SCH ×2 (07:52→19:46)
[2022-06-03] MEDS: Insulin LISPRO 300 UNITS/3 ML VIAL SUBQ SCH ×4 (08:47→22:13)
[2022-06-03] MEDS: Sennosides 8.6 MG TABLET PO SCH ×2 (08:47→22:12)
[2022-06-03] MEDS: Gabapentin 100 MG CAPSULE PO SCH ×3 (08:47→22:12)
[2022-06-03] MEDS: Sucralfate 1 GM TABLET PO SCH ×2 (08:47→22:13)
[2022-06-03] MEDS: Insulin DETEMIR 100 UNIT/ML X5UNITS SUBQ SCH ×2 (08:47→22:12)
[2022-06-03] MEDS: Aspirin 81 MG TAB.CHEW PO SCH (08:48)
[2022-06-03] MEDS ORDERED: 0.9 % Sodium Chloride 250 ML IVC PRN (08:51)
[2022-06-03] MEDS ORDERED: *HR* Heparin 10,000 UNIT/10 ML VIAL IV PRN (08:51)
[2022-06-03] MEDS: *HR* HYDROcodone/Acet 5/325 mg TABLET PO PRN ×3 (09:40→22:12)
[2022-06-03] MEDS: Furosemide 80 MG in 0.9 % Sodium Chloride 50 ML IV SCH (09:43)
[2022-06-03] MEDS ORDERED: Gentamicin 60 MG in 0.9 % Sodium Chloride 100 ML IVPB ONE (17:00)
[2022-06-04] MEDS: *HR* Heparin 5,000 UNIT/ML VIAL SQ SCH ×3 (06:17→21:38)
[2022-06-04 07:25] LABS: Basophils % 0.9 %
[2022-06-04 07:34] LABS: Hemoglobin 8.5 g/dL (11.5-15.4)
[2022-06-04 07:36] LABS: Basophils # 0.1 K/mcL (0.0-0.2); Eosinophils # 0.3 K/mcL (0.0-0.6); Eosinophils % 4.1 %; Hematocrit 27.4 % (35.3-44.9); Immature Granulocytes % 2.3 % (0-4); Lymphocytes # 0.6 K/mcL (0.6-4.6); Lymphocytes % 7.5 %; Mean Corpuscular Hemoglobin 28.7 pg (28.0-33.3); Mean Corpuscular Volume 92.6 fL (83.0-100.0); Mean Platelet Volume 9.4 fL (9.4-12.4); Monocytes # 0.5 K/mcL (0.0-1.3); Platelet Count 291 K/mcL (140-400); Red Blood Count 2.96 M/mcL (3.82-4.97); Red Cell Distribution Width 14.9 % (11.5-14.5); Segmented Neutrophils % 78.2 %; White Blood Count 7.7 K/mcL (4.3-11.1)
[2022-06-04] MEDS: Insulin LISPRO 300 UNITS/3 ML VIAL SUBQ SCH ×4 (08:02→21:39)
[2022-06-04] MEDS: Aspirin 81 MG TAB.CHEW PO SCH (08:03)
[2022-06-04] MEDS: Sennosides 8.6 MG TABLET PO SCH ×2 (08:04→20:06)
[2022-06-04] MEDS: Gabapentin 100 MG CAPSULE PO SCH ×3 (08:04→20:06)
[2022-06-04] MEDS: Sucralfate 1 GM TABLET PO SCH ×2 (08:04→20:05)
[2022-06-04] MEDS: Furosemide 80 MG in 0.9 % Sodium Chloride 50 ML IV SCH (08:06)
[2022-06-04] MEDS: Insulin DETEMIR 100 UNIT/ML X5UNITS SUBQ SCH ×2 (08:06→21:39)
[2022-06-04] MEDS: *HR* HYDROcodone/Acet 5/325 mg TABLET PO PRN (08:23)
[2022-06-04 08:38] LABS: Calcium 8.7 mg/dL (8.6-10.3); Potassium 4.4 mEq/L (3.5-5.1)
[2022-06-04] MEDS: Mometasone Furoate 100 MCG/PUFF Inhaler IH SCH ×2 (10:57→19:44)
[2022-06-04] MEDS ORDERED: *HR* Heparin 10,000 UNIT/10 ML VIAL IV PRN (12:14)
[2022-06-04] MEDS ORDERED: Naloxone 0.4 MG/ML INJ IVP PRN (12:14)
[2022-06-04] MEDS ORDERED: Nystatin POWDER 30 GM BOTTLE TP PRN (12:14)
[2022-06-04] MEDS ORDERED: Ipratropium/Albuterol Neb 3 ML IH PRN (12:14)
[2022-06-04] MEDS ORDERED: Gentamicin 1 EACH in 0.9 % Sodium Chloride 100 ML IVPB PRN (12:14)
[2022-06-04] MEDS ORDERED: D5% in Water 1,000 ML IVC PRN (12:14)
[2022-06-04] MEDS ORDERED: *HR* Dextrose 50 % in Water (Syg) 50 ML SYRINGE IVP PRN (12:14)
[2022-06-04] MEDS ORDERED: Dextrose Gel 15 GM/37.5 ML TUBE PO PRN ×2 (12:14)
[2022-06-04] MEDS ORDERED: Ondansetron 4 MG/2 ML VIAL IVP PRN (12:14)
[2022-06-04] MEDS: *HR* OxyCODONE Immed Rel 5 MG TABLET PO PRN (20:06)
[2022-06-04] MEDS ORDERED: Melatonin 3 MG TABLET PO ONE (22:02)
[2022-06-04] MEDS: Acetaminophen 325 MG TABLET PO PRN (22:05)
[2022-06-05] MEDS: *HR* Heparin 5,000 UNIT/ML VIAL SQ SCH ×4 (06:08→20:54)
[2022-06-05] MEDS: *HR* OxyCODONE Immed Rel 5 MG TABLET PO PRN ×2 (08:47→22:40)
[2022-06-05] MEDS: Gabapentin 100 MG CAPSULE PO SCH ×3 (08:48→20:32)
[2022-06-05] MEDS: Sennosides 8.6 MG TABLET PO SCH ×2 (08:48→20:32)
[2022-06-05] MEDS: Aspirin 81 MG TAB.CHEW PO SCH (08:49)
[2022-06-05] MEDS: Insulin LISPRO 300 UNITS/3 ML VIAL SUBQ SCH ×4 (08:49→20:36)
[2022-06-05] MEDS: Sucralfate 1 GM TABLET PO SCH ×2 (08:49→20:32)
[2022-06-05] MEDS: Mometasone Furoate 100 MCG/PUFF Inhaler IH SCH ×2 (08:51→19:35)
[2022-06-05] MEDS: Insulin DETEMIR 100 UNIT/ML X5UNITS SUBQ SCH ×2 (08:52→20:36)
[2022-06-05] MEDS: Furosemide 80 MG in 0.9 % Sodium Chloride 50 ML IV SCH (08:52)
[2022-06-05] MEDS: Acetaminophen 325 MG TABLET PO PRN (11:54)
[2022-06-05] MEDS: *HR* HYDROcodone/Acet 5/325 mg TABLET PO PRN (17:47)
[2022-06-06 04:38] LABS: Hemoglobin 8.4 g/dL (11.5-15.4); Mean Corpuscular HGB Conc 31.1 g/dL (31.6-35.5); Mean Corpuscular Hemoglobin 28.6 pg (28.0-33.3); Mean Corpuscular Volume 91.8 fL (83.0-100.0); Mean Platelet Volume 11.7 fL (9.4-12.4); Platelet Count 178 K/mcL (140-400); Red Blood Count 2.94 M/mcL (3.82-4.97); Red Cell Distribution Width 14.5 % (11.5-14.5); White Blood Count 7.2 K/mcL (4.3-11.1)
[2022-06-06 04:58] LABS: Calcium 9.3 mg/dL (8.6-10.3); Potassium 4.8 mEq/L (3.5-5.1)
[2022-06-06] MEDS: *HR* Heparin 5,000 UNIT/ML VIAL SQ SCH ×4 (05:58→23:21)
[2022-06-06] MEDS: Mometasone Furoate 100 MCG/PUFF Inhaler IH SCH ×2 (07:45→21:24)
[2022-06-06] MEDS: Aspirin 81 MG TAB.CHEW PO SCH (08:50)
[2022-06-06] MEDS: Gabapentin 100 MG CAPSULE PO SCH ×3 (08:50→21:07)
[2022-06-06] MEDS: *HR* HYDROcodone/Acet 5/325 mg TABLET PO PRN ×2 (08:50→23:01)
[2022-06-06] MEDS: Sucralfate 1 GM TABLET PO SCH ×2 (08:51→21:06)
[2022-06-06] MEDS: Sennosides 8.6 MG TABLET PO SCH ×2 (08:51→21:06)
[2022-06-06] MEDS: Insulin LISPRO 300 UNITS/3 ML VIAL SUBQ SCH ×4 (08:52→21:07)
[2022-06-06] MEDS: Insulin DETEMIR 100 UNIT/ML X5UNITS SUBQ SCH ×2 (09:27→21:07)
[2022-06-06] MEDS: Furosemide 80 MG in 0.9 % Sodium Chloride 50 ML IV SCH (09:28)
[2022-06-06] MEDS: Bumetanide 1 MG TABLET PO SCH (21:06)
[2022-06-07] MEDS: *HR* Heparin 5,000 UNIT/ML VIAL SQ SCH ×3 (04:31→21:53)
[2022-06-07] MEDS: Mometasone Furoate 100 MCG/PUFF Inhaler IH SCH ×2 (07:26→20:21)
[2022-06-07] MEDS ORDERED: 0.9 % Sodium Chloride 250 ML IVC PRN (07:35)
[2022-06-07] MEDS ORDERED: 0.9 % Sodium Chloride 2,000 ML PRIME SCH (07:45)
[2022-06-07] MEDS: *HR* HYDROcodone/Acet 5/325 mg TABLET PO PRN (08:30)
[2022-06-07] MEDS: Bumetanide 1 MG TABLET PO SCH ×2 (08:43→21:53)
[2022-06-07] MEDS: DilTIAZem CD (24hr) 120 MG CAP.ER.24H PO SCH (08:43)
[2022-06-07] MEDS: Isosorbide MONOnitrate (24 HR) 60 MG TAB.ER.24H PO SCH (08:43)
[2022-06-07] MEDS: Gabapentin 100 MG CAPSULE PO SCH ×3 (08:43→21:52)
[2022-06-07] MEDS: Cholecalciferol (D-3) 1,000 UNIT (25MCG) TABLET PO SCH (08:43)
[2022-06-07] MEDS: Sucralfate 1 GM TABLET PO SCH ×2 (08:43→21:53)
[2022-06-07] MEDS: Insulin LISPRO 300 UNITS/3 ML VIAL SUBQ SCH ×4 (08:44→21:39)
[2022-06-07] MEDS: Aspirin 81 MG TAB.CHEW PO SCH (08:44)
[2022-06-07] MEDS: Insulin DETEMIR 100 UNIT/ML X5UNITS SUBQ SCH ×2 (10:14→21:53)
[2022-06-07] MEDS ORDERED: *HR* Heparin 10,000 UNIT/10 ML VIAL IV PRN (10:50)
[2022-06-07] MEDS: Sennosides 8.6 MG TABLET PO SCH ×2 (12:19→21:53)
[2022-06-07] MEDS: polyethylene glycoL 3350 17 GM POWD.PACK PO SCH (12:19)
[2022-06-07] MEDS: *HR* OxyCODONE Immed Rel 5 MG TABLET PO PRN (12:31)
[2022-06-07 14:43] LABS: Calcium 8.9 mg/dL (8.6-10.3); Potassium 3.9 mEq/L (3.5-5.1)
[2022-06-07] MEDS ORDERED: Gentamicin 60 MG in 0.9 % Sodium Chloride 100 ML IVPB ONE (17:00)
[2022-06-08] MEDS: *HR* Heparin 5,000 UNIT/ML VIAL SQ SCH ×3 (04:48→20:55)
[2022-06-08] MEDS: *HR* HYDROcodone/Acet 5/325 mg TABLET PO PRN ×2 (04:56→20:52)
[2022-06-08] MEDS: Mometasone Furoate 100 MCG/PUFF Inhaler IH SCH ×2 (07:33→20:35)
[2022-06-08] MEDS: Gabapentin 100 MG CAPSULE PO SCH ×3 (08:43→20:52)
[2022-06-08] MEDS: Cholecalciferol (D-3) 1,000 UNIT (25MCG) TABLET PO SCH (08:43)
[2022-06-08] MEDS: Isosorbide MONOnitrate (24 HR) 60 MG TAB.ER.24H PO SCH (08:43)
[2022-06-08] MEDS: Aspirin 81 MG TAB.CHEW PO SCH (08:43)
[2022-06-08] MEDS: Sucralfate 1 GM TABLET PO SCH ×2 (08:43→20:53)
[2022-06-08] MEDS: polyethylene glycoL 3350 17 GM POWD.PACK PO SCH (08:43)
[2022-06-08] MEDS: Sennosides 8.6 MG TABLET PO SCH ×2 (08:43→20:52)
[2022-06-08] MEDS: Bumetanide 1 MG TABLET PO SCH ×2 (08:43→20:52)
[2022-06-08] MEDS: Insulin LISPRO 300 UNITS/3 ML VIAL SUBQ SCH ×4 (08:44→20:55)
[2022-06-08] MEDS: Insulin DETEMIR 100 UNIT/ML X5UNITS SUBQ SCH ×2 (09:29→20:54)
[2022-06-08] MEDS: DilTIAZem CD (24hr) 120 MG CAP.ER.24H PO SCH (09:30)
[2022-06-08] MEDS: Acetaminophen 325 MG TABLET PO PRN (09:33)
[2022-06-08 14:20] LABS: Calcium 9.4 mg/dL (8.6-10.3); Potassium 4.5 mEq/L (3.5-5.1)
[2022-06-09] MEDS: *HR* Heparin 5,000 UNIT/ML VIAL SQ SCH ×2 (05:48→13:59)
[2022-06-09] MEDS: Mometasone Furoate 100 MCG/PUFF Inhaler IH SCH (07:56)
[2022-06-09] MEDS: Bumetanide 1 MG TABLET PO SCH (08:42)
[2022-06-09] MEDS: Sucralfate 1 GM TABLET PO SCH (08:42)
[2022-06-09] MEDS: Sennosides 8.6 MG TABLET PO SCH (08:43)
[2022-06-09] MEDS: Cholecalciferol (D-3) 1,000 UNIT (25MCG) TABLET PO SCH (08:43)
[2022-06-09] MEDS: Gabapentin 100 MG CAPSULE PO SCH ×2 (08:43→14:07)
[2022-06-09] MEDS: Aspirin 81 MG TAB.CHEW PO SCH (08:43)
[2022-06-09] MEDS: polyethylene glycoL 3350 17 GM POWD.PACK PO SCH (08:44)
[2022-06-09] MEDS: Isosorbide MONOnitrate (24 HR) 60 MG TAB.ER.24H PO SCH (08:44)
[2022-06-09] MEDS: DilTIAZem CD (24hr) 120 MG CAP.ER.24H PO SCH (08:44)
[2022-06-09] MEDS: Insulin LISPRO 300 UNITS/3 ML VIAL SUBQ SCH ×2 (08:45→12:19)
[2022-06-09] MEDS: Insulin DETEMIR 100 UNIT/ML X5UNITS SUBQ SCH (08:54)
[2022-06-09] MEDS: *HR* HYDROcodone/Acet 5/325 mg TABLET PO PRN (12:24)
[2022-06-09] MEDS ORDERED: Flu Vac QV 22-23 (6MOS UP)/PF 0.5 ML SYRINGE IM ONE (13:19)
[2022-06-09 14:06] LABS: Gentamicin,Random 1.3 mcg/mL
[2022-06-09] MEDS: *HR* OxyCODONE Immed Rel 5 MG TABLET PO PRN (14:06)
[2022-06-09 14:09] LABS: Calcium 9.4 mg/dL (8.6-10.3); Potassium 5.2 mEq/L (3.5-5.1)
[2022-06-09 15:35] VITALS: BP 90/36; PULSE 85; TEMP 97.6; O2SAT 98
== END 2022-06-09 18:53 | DRG 981 ==
LOC: EMEROOARM 15:02 → 2ANU 15:02 → SUATTDRO 18:07 → 2ANU 19:31 → SUATTDRO 05-22 16:47 → ICNU 06-02 17:25 → 2NENU 06-03 00:03
PROVIDERS: ADMIT Internal Medicine; ATTEND Internal Medicine
PROC: IRPERMA (2022-06-02 12:00)

== ENCOUNTER 2022-06-11 13:06 | Inpatient (IN) ==
[2022-06-11 13:50] LABS: Basophils # 0.1 K/mcL (0.0-0.2); Basophils % 1.5 %; Eosinophils # 0.4 K/mcL (0.0-0.6); Eosinophils % 7.1 %; Hematocrit 26.3 % (35.3-44.9); Hemoglobin 8.2 g/dL (11.5-15.4); Immature Granulocytes % 2.3 % (0-4); Lymphocytes # 0.4 K/mcL (0.6-4.6); Lymphocytes % 6.3 %; Mean Corpuscular HGB Conc 31.2 g/dL (31.6-35.5); Mean Corpuscular Hemoglobin 28.7 pg (28.0-33.3); Mean Platelet Volume 10.7 fL (9.4-12.4); Monocytes # 0.5 K/mcL (0.0-1.3); Monocytes % 7.9 %; Neutrophils # 4.6 K/mcL (1.6-8.9); Platelet Count 227 K/mcL (140-400); Red Blood Count 2.86 M/mcL (3.82-4.97); Red Cell Distribution Width 14.4 % (11.5-14.5); Segmented Neutrophils % 74.9 %; White Blood Count 6.2 K/mcL (4.3-11.1)
[2022-06-11 14:11] LABS: Calcium 9.6 mg/dL (8.6-10.3); Magnesium 1.9 mg/dL (1.6-2.6); Phosphorous 5.1 mg/dL (2.7-4.5); Potassium 5.1 mEq/L (3.5-5.1)
[2022-06-11] MEDS ORDERED: Acetaminophen 325 MG TABLET PO ONE (15:22)
[2022-06-11] MEDS ORDERED: Ondansetron 4 MG/2 ML VIAL IVP PRN (15:48)
[2022-06-11] MEDS ORDERED: Naloxone 0.4 MG/ML INJ IVP PRN (15:48)
[2022-06-11] MEDS ORDERED: Dextrose Gel 15 GM/37.5 ML TUBE PO PRN ×2 (16:17)
[2022-06-11] MEDS ORDERED: *HR* Dextrose 50 % in Water (Syg) 50 ML SYRINGE IVP PRN (16:17)
[2022-06-11] MEDS ORDERED: D5% in Water 1,000 ML IVC PRN (16:17)
[2022-06-11] MEDS: *HR* HYDROcodone/Acet 5/325 mg TABLET PO SCH ×2 (17:33→17:55)
[2022-06-11] MEDS: Insulin LISPRO 300 UNITS/3 ML VIAL SUBQ SCH (18:35)
[2022-06-11] MEDS: Insulin DETEMIR 100 UNIT/ML X5UNITS SUBQ SCH (22:02)
[2022-06-11 22:37] LABS: Gentamicin,Random 0.5 mcg/mL
[2022-06-11] MEDS ORDERED: GENTAMICIN IVPB PRN (23:27)
[2022-06-11] MEDS ORDERED: SODIUM CHLORIDE 0.9% IVPB PRN (23:27)
[2022-06-12] MEDS: *HR* HYDROcodone/Acet 5/325 mg TABLET PO SCH ×4 (00:31→17:42)
[2022-06-12] MEDS: Insulin LISPRO 300 UNITS/3 ML VIAL SUBQ SCH ×4 (00:32→17:43)
[2022-06-12] MEDS ORDERED: Gentamicin 60 MG in 0.9 % Sodium Chloride 100 ML IVPB ONE (01:00)
[2022-06-12 10:08] LABS: Basophils # 0.1 K/mcL (0.0-0.2); Basophils % 1.1 %; Eosinophils # 0.5 K/mcL (0.0-0.6); Eosinophils % 7.6 %; Hematocrit 26.6 % (35.3-44.9); Hemoglobin 8.5 g/dL (11.5-15.4); Immature Granulocytes % 1.8 % (0-4); Lymphocytes # 0.6 K/mcL (0.6-4.6); Lymphocytes % 8.8 %; Mean Corpuscular Hemoglobin 29.1 pg (28.0-33.3); Mean Corpuscular Volume 91.1 fL (83.0-100.0); Mean Platelet Volume 10.1 fL (9.4-12.4); Monocytes # 0.5 K/mcL (0.0-1.3); Neutrophils # 4.9 K/mcL (1.6-8.9); Platelet Count 231 K/mcL (140-400); Red Blood Count 2.92 M/mcL (3.82-4.97); Red Cell Distribution Width 14.6 % (11.5-14.5); Segmented Neutrophils % 73.7 %; White Blood Count 6.6 K/mcL (4.3-11.1)
[2022-06-12 10:37] LABS: Calcium 9.6 mg/dL (8.6-10.3)
[2022-06-12] MEDS ORDERED: Bisacodyl 10 MG RECTAL SUPPOSITORY RC PRN (13:20)
[2022-06-12] MEDS ORDERED: MOM Conc 10 ML UD.LIQ PO PRN (13:20)
[2022-06-12] MEDS: DilTIAZem CD (24hr) 120 MG CAP.ER.24H PO SCH (17:42)
[2022-06-12] MEDS: Bumetanide 1 MG TABLET PO SCH (17:42)
[2022-06-12] MEDS: Gabapentin 300 MG CAPSULE PO SCH ×2 (17:43→20:51)
[2022-06-12] MEDS: Insulin DETEMIR 100 UNIT/ML X5UNITS SUBQ SCH (20:51)
[2022-06-12] MEDS: Nystatin POWDER 30 GM BOTTLE TP SCH (21:44)
[2022-06-12] MEDS ORDERED: Mometasone Furoate 100 MCG/PUFF Inhaler IH SCH (22:00)
[2022-06-12] MEDS: Mometasone Furoate 100 MCG/PUFF Inhaler IH SCH (23:10)
[2022-06-13] MEDS: *HR* HYDROcodone/Acet 5/325 mg TABLET PO SCH ×4 (01:02→18:25)
[2022-06-13] MEDS: Insulin LISPRO 300 UNITS/3 ML VIAL SUBQ SCH ×4 (01:02→18:26)
[2022-06-13 06:51] LABS: Hematocrit 27.9 % (35.3-44.9); Hemoglobin 8.7 g/dL (11.5-15.4); Mean Corpuscular HGB Conc 31.2 g/dL (31.6-35.5); Mean Corpuscular Hemoglobin 29.2 pg (28.0-33.3); Mean Corpuscular Volume 93.6 fL (83.0-100.0); Mean Platelet Volume 9.5 fL (9.4-12.4); Platelet Count 292 K/mcL (140-400); Red Blood Count 2.98 M/mcL (3.82-4.97); Red Cell Distribution Width 14.4 % (11.5-14.5); White Blood Count 5.7 K/mcL (4.3-11.1)
[2022-06-13 07:17] LABS: Calcium 9.8 mg/dL (8.6-10.3); Phosphorous 5.1 mg/dL (2.7-4.5); Potassium 4.9 mEq/L (3.5-5.1)
[2022-06-13 07:43] LABS: Hepatitis B Surface Antigen Nonreactive (Nonreactive)
[2022-06-13] MEDS: Mometasone Furoate 100 MCG/PUFF Inhaler IH SCH ×2 (07:50→19:45)
[2022-06-13 08:12] LABS: Hepatitis B Core IgM Nonreactive (Nonreactive)
[2022-06-13 08:13] LABS: Hepatitis C Virus Antibody Nonreactive (Nonreactive)
[2022-06-13 08:14] LABS: Hepatitis A Antibody IgM Nonreactive (Nonreactive)
[2022-06-13] MEDS ORDERED: Multivit/Ca/Min/Fe/FA 1 TAB TABLET PO SCH (09:00)
[2022-06-13] MEDS ORDERED: Cholecalciferol (D-3) 1,000 UNIT (25MCG) TABLET PO SCH (09:00)
[2022-06-13] MEDS ORDERED: Aspirin 81 MG TAB.CHEW PO SCH (09:00)
[2022-06-13] MEDS ORDERED: polyethylene glycoL 3350 17 GM POWD.PACK PO SCH (09:00)
[2022-06-13] MEDS ORDERED: Isosorbide MONOnitrate (24 HR) 60 MG TAB.ER.24H PO SCH (09:00)
[2022-06-13] MEDS: Gabapentin 300 MG CAPSULE PO SCH ×2 (10:16→20:09)
[2022-06-13] MEDS: DilTIAZem CD (24hr) 120 MG CAP.ER.24H PO SCH (10:16)
[2022-06-13] MEDS: Nystatin POWDER 30 GM BOTTLE TP SCH ×2 (10:18→20:40)
[2022-06-13] MEDS: Bumetanide 1 MG TABLET PO SCH ×2 (10:23→18:25)
[2022-06-13 12:49] LABS: Folate 13.6 ng/mL (3.0-16.0)
[2022-06-13] MEDS: Insulin DETEMIR 100 UNIT/ML X5UNITS SUBQ SCH (20:09)
[2022-06-13 21:34] VITALS: BP 115/72; PULSE 103; TEMP 98.1; O2SAT 92
[2022-06-14] MEDS: *HR* HYDROcodone/Acet 5/325 mg TABLET PO SCH (03:22)
[2022-06-14] MEDS ORDERED: *HR* Heparin 10,000 UNIT/10 ML VIAL IV PRN ×2 (08:07)
[2022-06-14] MEDS ORDERED: 0.9 % Sodium Chloride 250 ML IVC PRN (08:07)
[2022-06-14] MEDS ORDERED: 0.9 % Sodium Chloride 2,000 ML PRIME SCH (08:15)
== END 2022-06-13 23:59 | disposition other institution (70) | DRG 291 ==
LOC: EMEROOARM 13:06 → 2ANU 13:06 → SUATTDRO 16:29 → 2ANU 18:23
PROVIDERS: ADMIT Internal Medicine; ATTEND Internal Medicine